=== PATIENT | female | born 1945 | race Caucasian/White ===

== ENCOUNTER 2016-10-18 06:25 | Day surgery (SDC) | payer OTHER ==
[2016-10-18 07:27] VITALS: BMI 29.2
--- NOTE | 2016-10-18 07:57 | CP.SDSHP ---
Same Day Surgery H & P - History Proposed Procedure: colonoscopy - Previous Medical/Surgical History Cardiac: Hypertension Endocrine/Metabolic: Diabetes - Allergies Allergies: Allergies No Known Allergies Allergy (Verified 11/17/13 11:52) - Date & Time Date: 10/18/16 Time: 07:57 Short Stay Discharge - Short Stay Discharge Admitting Diagnosis/Reason for Visit: ENCOUNTER FOR SCREENING FOR MALIGNANT NEOPLASM OF Disposition: HOME/ ROUTINE
[2016-10-18] MEDS ORDERED: Propofol 10 mg/ml Inj (20 ML) ONE (08:00)
[2016-10-18 09:01] VITALS: O2SAT 100
[2016-10-18 10:48] VITALS: BP 138/53; PULSE 59; RESP 14; TEMP 97.4
== END 2016-10-18 10:40 | disposition home or self-care (01) ==
LOC: C.ENDO 06:25
PROVIDERS: ATTEND Colon & Rectal Surgery
DX: D12.5 Benign neoplasm of sigmoid colon (principal); Q43.8 Other specified congenital malformations of intestine; K64.4 Residual hemorrhoidal skin tags; E11.9 Type 2 diabetes mellitus without complications; I10 Essential (primary) hypertension; K64.8 Other hemorrhoids
CPT/HCPCS: 45388; 82948; 88305; J2704

== ENCOUNTER 2017-10-16 20:57 | Inpatient (IN) | payer OTHER ==
[2017-10-16 20:57] VITALS: BMI 29.2
[2017-10-16] MEDS ORDERED: Iodixanol 320 mg/ml 150 ml Bottle IV ONE (21:31)
[2017-10-16 21:47] LABS: BASO % 0.7 % (0.0-2.0); EOS # 0.1 K/uL (0.0-0.7); EOS % 1.1 % (0.0-4.0); HEMOGLOBIN 10.8 g/dL (11.0-16.0); LYMPH # 1.7 K/uL (1.0-4.3); LYMPH % 24.1 % (20.0-40.0); MEAN CELL VOLUME 82.9 fL (81.0-99.0); MEAN CORPUSCULAR HEMOGLOBIN 27.6 pg (27.0-31.0); MEAN CORPUSCULAR HGB CONC 33.2 g/dL (33.0-37.0); MEAN PLATELET VOLUME 7.8 fL (7.2-11.7); MONO # 0.4 K/uL (0.0-0.8); MONO % 6.2 % (0.0-10.0); NEUT # 4.9 K/uL (1.8-7.0); NEUT % 67.9 % (50.0-75.0); NRBC % 0.1 % (0.0-2.0); RBC 3.91 Mil/uL (3.80-5.20); RED CELL DISTRIBUTION WIDTH 14.4 % (11.5-14.5); WHITE BLOOD COUNT 7.2 K/uL (4.8-10.8)
--- NOTE | 2017-10-16 21:48 | C.PDOC ---
History Of Present Illness Patient is a 72 y/o F presenting with L leg weakness. Patient reports that she was at home when she developed L leg weakness and then called 911. On initial RN evaluation patient was moving leg but complaining of weakness. On my evaluation, patient had limited movement of LLE and code stroke was called. Last known well time 900pm. Denies chest pain or shortness of breath. Denies back pain. Denies urinary or bowel incontinence Time Seen by Provider: 10/16/17 21:04 Chief Complaint (Nursing): Weakness/Neurological Deficit Past Medical History Vital Signs: Last Vital Signs Temp 98.7 F 10/16/17 21:08 Pulse 101 H 10/16/17 22:47 Resp 17 10/16/17 22:47 BP 144/90 10/16/17 22:47 Pulse Ox 99 10/16/17 22:59 - Medical History PMH: Anemia, Arthritis, Depression, HTN, Hypercholesterolemia Denies: Chronic Kidney Disease - [facility] ENDO RECTUM POLYPECTOMY (11/19/13) Family History: States: No Known Family Hx - Social History Hx Alcohol Use: No Hx Substance Use: No - Immunization History Hx Influenza Vaccination: Yes Hx Pneumococcal Vaccination: Yes Review Of Systems Except As Marked, All Systems Reviewed And Found Negative. Constitutional: Negative for: Fever, Chills Cardiovascular: Negative for: Chest Pain, Palpitations Respiratory: Negative for: Cough, Shortness of Breath, SOB with Excertion, Wheezing Gastrointestinal: Negative for: Nausea, Vomiting, Abdominal Pain, Diarrhea, Constipation Genitourinary: Negative for: Dysuria Musculoskeletal: Negative for: Neck Pain Neurological: Positive for: Weakness. Negative for: Numbness, Altered Mental Status, Headache Physical Exam - Physical Exam Appears: Well, Non-toxic, No Acute Distress Skin: Normal Color, Warm, Dry Head: Atraumatic, Normacephalic Eye(s): bilateral: Normal Inspection, PERRL, EOMI Neck: Supple Chest: Symmetrical Cardiovascular: Rhythm Irregular Respiratory: No Accessory Muscle Use, Wheezing (at bases) Gastrointestinal/Abdominal: Soft, No Tenderness, No Mass, No Distention Back: Normal Inspection, No CVA Tenderness Extremity: Other (LLE: normal sensation but unable to move LLE other than wiggle toes. Other extremities: normal ROM and strength) Neurological/Psych: Oriented x3, Normal Cranial Nerves, Normal Sensation ED Course And Treatment - Laboratory Results Result Diagrams: 10/16/17 21:37 10/16/17 21:37 O2 Sat by Pulse Oximetry: 99 NIHSS Stroke Scale 2 - Date/Time Evaluation Performed Date Performed: 10/16/17 Time Performed: 22:20 When Was NIHSS Performed: Baseline - How Severe is the Stroke Level of Consciousness: 0=Alert LOC to Questions: 0=Both comments correct LOC to commands: 0=Obeys both correctly Best Gaze: 0=Normal Visual: 0=No visual loss Facial: 0=Normal Motor Arm - Left: 0=No drift Motor Arm - Right: 0=No drift Motor Leg - Left: 3=No effort against gravity (falls immediately) Motor Leg - Right: 0=No drift Limb Ataxia: 0=Absent Sensory: 0=Normal Best Language: 0=No aphasia Dysarthia: 0=Normal articulation Extinction & Inattention (Neglect): 0=Normal, no object Score: 3 Severity Of Stroke: 1-4 = Minor Stroke rTPA Inclusion/Exclusion - Refusal of Treatment Patient Refused Treatment: No - Inclusion Criteria for Altepase Patient is 18 years or Older: Yes The Clinical Diagnosis of Ischemic Stroke That is Causing a Potentially Disabling Neurological Deficit: No Time of Onset is Well Established to be Less Than 270 Minute Before Treatment Would Begin: Yes Risk/Benefit Discussed With Patient/Family Member Present: No Medical Decision Making Medical Decision Making: Code stroke immediately called on my evaluation. CT head shows: 1. Motion artifact degrades image quality. 2. 6 mm area of low density in the subcortical white matter the right frontal lobe. This could represent a lacunar infarct. The image is degraded by motion artifact. Followup examination should be considered. Alternatively MR would be helpful if there strong clinical concern for evolving infarct. Aspirin given per Dr. Andujar, neurologist. IMPRESSION: 1. 40% stenosis of the right proximal internal carotid artery 2. 50% stenosis of the left proximal/mid internal carotid artery 3. Hypoplastic left vertebral artery. 4. Interstitial thickening at the lung apices bilaterally. 5. Both cervical internal carotid arteries assume an aberrant course extending into the retropharyngeal soft tissues CTA head IMPRESSION: 1. 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 2. Aplastic left posterior communicating artery. 3. Chronic sinusitis within the paranasal sinuses. Postsurgical changes in the left maxillary sinus. 4. Acute sinusitis in the right frontal sinus EKG shows rapid afib at 133bpm. Spoke to PMD Dr. Yanez who reports that patient has no history. Verapamil and lopressor given with improvement of heart rate. Spoke to . She does not recommend tpa as lacunar infarct. Recommends tele admission. Spoke to Dr. Racheal Wade who accepts admission and spoke to Dr. Villarreal who will consult for cardiology Disposition - Disposition Disposition: HOSPITALIZED Disposition Time: 22:31 Condition: FAIR Forms: [facility] ([place]ish) - Clinical Impression Clinical Impression: CVA (cerebral vascular accident), New onset a-fib
[2017-10-16 21:51] LABS: INR 0.9; PROTHROMBIN TIME 10.3 SECONDS (9.7-12.2)
[2017-10-16] MEDS: Sodium Chloride 0.9% 1,000 ML IV SCH (21:53)
--- NOTE | 2017-10-16 21:54 | CT ---
EXAM: CT Head Without Intravenous Contrast EXAM DATE/TIME: Exam ordered 10/16/2017 9:25 PM CLINICAL HISTORY: 72 years old, female; Signs and symptoms; Numbness / parasthesia; Left; Additional info: Code stroke TECHNIQUE: Axial computed tomography images of the head/brain without intravenous contrast. All CT scans at this facility use one or more dose reduction techniques, viz.: automated exposure control; ma/kV adjustment per patient size (including targeted exams where dose is matched to indication; i.e. head); or iterative reconstruction technique. COMPARISON: No relevant prior studies available. FINDINGS: Motion artifact degrades images at the skull base. Brain: A 6 mm area of low density is noted in the subcortical white matter of the right frontal lobe (series 4 image 28). There is motion artifact at this level which degrades image quality.. Ventricles: There is subcentimeter choroid plexus cysts noted bilaterally. Bones/joints: There is hyperostosis frontalis interna. No acute fracture. Soft tissues: Unremarkable. Sinuses: Unremarkable as visualized. No acute sinusitis. Mastoid air cells: Unremarkable as visualized. No mastoid effusion. IMPRESSION: 1. Motion artifact degrades image quality. 2. 6 mm area of low density in the subcortical white matter the right frontal lobe. This could represent a lacunar infarct. The image is degraded by motion artifact. Followup examination should be considered. Alternatively MR would be helpful if there strong clinical concern for evolving infarct. Images were attached to this report and are available at [email or web address]
[2017-10-16 22:02] LABS: ALB/GLOB RATIO 1.1 (1.0-2.1); ALBUMIN 4.2 g/dL (3.5-5.0); ALT/SGPT 34 U/L (9-52); AST/SGOT 45 U/L (14-36); BLOOD UREA NITROGEN 8 mg/dL (7-17); CALCIUM 8.9 mg/dl (8.6-10.4); GFR AFRICAN-AMERICAN > 60; GFR NON-AFRICAN AMERICAN > 60; HDL CHOLESTEROL 30 mg/dL (30-70)
[2017-10-16] MEDS ORDERED: Verapamil 2 ML ONE (22:07)
[2017-10-16 22:08] LABS: LDL CHOLESTEROL 52 mg/dL (0-129)
[2017-10-16] MEDS ORDERED: Metoprolol 1 mg/ml Inj IVP STA (22:37)
[2017-10-16] MEDS ORDERED: Metoprolol 1 mg/ml Inj IVP ONE (22:42)
--- NOTE | 2017-10-16 23:27 | CP.PCM.CON ---
History of Present Illness - History of Present Illness History of Present Illness: 72 year old with HTN, DM, Mixed hyperlipidemia. presented with leg weakness. rendered non suitable for thrombolytic treatment after CT evidence of lacunar infarct. now rate controlled. carotid Doppler no significat stenosis. check echo , needs anti coagulation Review of Systems - Review of Systems Systems not reviewed;Unavailable: Acuity of Condition - Constitutional Constitutional: Anorexia, Weakness - EENT Eyes: absent: Discharge, Loss of Vision Ears: absent: Ear Discharge, Dizziness Nose/Mouth/Throat: absent: Epistaxis - Cardiovascular Cardiovascular: absent: Acrocyanosis, Chest Pain, Diaphoresis, Palpitations, Syncope - Respiratory Respiratory: Cough, Dyspnea. absent: Hemoptysis - Gastrointestinal Gastrointestinal: absent: Abdominal Pain, Diarrhea, Dyspepsia, Nausea, Vomiting - Genitourinary Genitourinary: absent: Change in Urinary Stream Past Patient History - Past Medical History & Family History Past Medical History?: Yes - Past Social History Smoking Status: Never Smoked - CARDIAC Hx Hypercholesterolemia: Yes Hx Hypertension: Yes - PULMONARY Other/Comment: dyspnea on exertion - HEENT Hx HEENT Problems: Yes Hx Cataracts: Yes - RENAL Hx Chronic Kidney Disease: No - ENDOCRINE/METABOLIC Hx Endocrine Disorders: Yes Hx Diabetes Mellitus Type 1: Yes - HEMATOLOGICAL/ONCOLOGICAL Hx Anemia: Yes - INTEGUMENTARY Hx Dermatological Problems: No - MUSCULOSKELETAL/RHEUMATOLOGICAL Hx Arthritis: Yes - GASTROINTESTINAL Hx Gastrointestinal Disorders: Yes (abd pain) Hx Hemorrhoids: Yes - GENITOURINARY/GYNECOLOGICAL Hx Genitourinary Disorders: No - PSYCHIATRIC Hx Depression: Yes Hx Substance Use: No - SURGICAL HISTORY Hx Surgeries: Yes Hx Cardiac Catheterization: Yes Other/Comment: wisdom teeth exctraction 1974 - ANESTHESIA Hx Anesthesia: Yes Hx Anesthesia Reactions: No Hx Malignant Hyperthermia: No Meds Allergies/Adverse Reactions: Allergies Allergy/AdvReac Type Severity Reaction Status Date / Time No Known Allergies Allergy Verified 10/16/17 21:13 - Medications Medications: Current Medications Sodium Chloride (Sodium Chloride 0.9%) 1,000 mls @ 100 mls/hr IV .Q10H [facility] Last Admin: 10/16/17 21:53 Dose: 100 mls/hr Physical Exam - Constitutional Appears: Non-toxic - Head Exam Head Exam: ATRAUMATIC - Eye Exam Eye Exam: EOMI - ENT Exam ENT Exam: Mucous Membranes Moist - Neck Exam Neck exam: Negative for: Lymphadenopathy, Thyromegaly - Respiratory Exam Respiratory Exam: Clear to Auscultation Bilateral. absent: Rales - Cardiovascular Exam Cardiovascular Exam: Irregular Rhythm, Systolic Murmur - GI/Abdominal Exam GI & Abdominal Exam: Normal Bowel Sounds. absent: Organomegaly - Rectal Exam Rectal Exam: Deferred - Extremities Exam Extremities exam: Positive for: normal capillary refill. Negative for: calf tenderness - Neurological Exam Neurological exam: Alert, Oriented x3 - Psychiatric Exam Psychiatric exam: Normal Mood - Skin Skin Exam: Dry Results - Vital Signs Recent Vital Signs: Last Vital Signs Temp 98.7 F 10/16/17 21:08 Pulse 98 H 10/16/17 23:19 Resp 18 10/16/17 23:19 BP 140/76 10/16/17 23:19 Pulse Ox 98 10/16/17 23:19 - Labs Result Diagrams: 10/17/17 13:53 10/17/17 13:53 Labs: Laboratory Results - last 24 hr 10/16/17 10/16/17 10/16/17 21:01 21:37 21:37 WBC 7.2 RBC 3.91 Hgb 10.8 L Hct 32.4 L MCV 82.9 MCH 27.6 MCHC 33.2 RDW 14.4 Plt Count 413 H MPV 7.8 Neut % (Auto) 67.9 Lymph % (Auto) 24.1 [place] % (Auto) 6.2 Eos % (Auto) 1.1 Baso % (Auto) 0.7 Neut # (Auto) 4.9 Lymph # (Auto) 1.7 [place] # (Auto) 0.4 Eos # (Auto) 0.1 Baso # (Auto) 0.0 PT 10.3 INR 0.9 APTT 20 L Sodium Potassium Chloride Carbon Dioxide Anion Gap BUN Creatinine Est GFR ( Amer) Est GFR (Non-Af Amer) POC Glucose (mg/dL) 69 Random Glucose Hemoglobin A1c Calcium Total Bilirubin AST ALT Alkaline Phosphatase Troponin I Total Protein Albumin Globulin Albumin/Globulin Ratio Triglycerides Cholesterol LDL Cholesterol Direct HDL Cholesterol Blood Type Antibody Screen 10/16/17 10/16/17 10/16/17 21:37 21:37 21:41 WBC RBC Hgb Hct MCV MCH MCHC RDW Plt Count MPV Neut % (Auto) Lymph % (Auto) [place] % (Auto) Eos % (Auto) Baso % (Auto) Neut # (Auto) Lymph # (Auto) [place] # (Auto) Eos # (Auto) Baso # (Auto) PT INR APTT Sodium 141 Potassium 4.1 Chloride 105 Carbon Dioxide 25 Anion Gap 15 BUN 8 Creatinine 0.8 Est GFR ( Amer) > 60 Est GFR (Non-Af Amer) > 60 POC Glucose (mg/dL) Random Glucose 69 Hemoglobin A1c 7.5 H Calcium 8.9 Total Bilirubin 0.9 AST 45 H ALT 34 Alkaline Phosphatase 54 Troponin I < 0.0120 Total Protein 8.1 Albumin 4.2 Globulin 3.9 Albumin/Globulin Ratio 1.1 Triglycerides 123 Cholesterol 107 LDL Cholesterol Direct 52 HDL Cholesterol 30 Blood Type O POSITIVE Antibody Screen Negative 10/16/17 22:45 WBC RBC Hgb Hct MCV MCH MCHC RDW Plt Count MPV Neut % (Auto) Lymph % (Auto) [place] % (Auto) Eos % (Auto) Baso % (Auto) Neut # (Auto) Lymph # (Auto) [place] # (Auto) Eos # (Auto) Baso # (Auto) PT INR APTT Sodium Potassium Chloride Carbon Dioxide Anion Gap BUN Creatinine Est GFR ( Amer) Est GFR (Non-Af Amer) POC Glucose (mg/dL) 77 Random Glucose Hemoglobin A1c Calcium Total Bilirubin AST ALT Alkaline Phosphatase Troponin I Total Protein Albumin Globulin Albumin/Globulin Ratio Triglycerides Cholesterol LDL Cholesterol Direct HDL Cholesterol Blood Type Antibody Screen Assessment & Plan (1) CVA (cerebral vascular accident) Status: Acute (2) New onset a-fib Status: Acute Comment: rate control, noag
[2017-10-17 06:53] LABS: CK-MB 1.26 ng/mL (0.0-3.38)
[2017-10-17] MEDS: Sodium Chloride 0.9% 1,000 ML IV SCH ×2 (07:40→10:39)
[2017-10-17] MEDS: (Novolog) Insulin Aspart, Recombinant 100 u/ml 10 ml vial SC SCH ×4 (08:09→21:16)
--- NOTE | 2017-10-17 09:22 | RAD ---
Chest x-ray single frontal view History: Code stroke. Comparison: None available. Findings: Mild venous congestion. Right hilar prominence. Top normal heart size. Degenerative changes in the spine. Impression: Mild venous congestion. Right hilar prominence. Top normal heart size.
--- NOTE | 2017-10-17 09:45 | CT ---
PROCEDURE: CT Angiography of the neck and brain dated 10/16/2017 HISTORY: Left arm weakness COMPARISON: Correlation made with concurrent CT scan brain. TECHNIQUE: IV contrast dose: 100 cc Visipaque 320 Radiation Dose - DLP: 605.33 mGy-cm This CT exam was performed using one or more of the following dose reduction techniques: Automated exposure control, adjustment of the mA and/or kV according to patient size, and/or use of iterative reconstruction technique. . FINDINGS: Aortic arch is widely patent with some minor foci of partially calcified atherosclerotic plaque changes along the inferior and mid left posterolateral margin of the transverse portion of the aortic arch. There also calcified plaque changes seen along the origins of the great vessels. The common carotid arteries are widely patent. Partially calcified atherosclerotic plaque seen at the level of the right carotid bifurcation extending distally into the proximal margin of the right internal carotid artery. Estimated at approximately 60 % stenosis. . The minor plaque changes seen along medial aspect left carotid bifurcation however there is a prominent calcified plaque within the proximal aspect of the left internal carotid artery with estimated percent narrowing at approximately 50 % or so. Both internal internal carotid artery's exhibited very re- short retropharyngeal course left-side more medial than the right. There is a small calcified plaque at along the distal right internal carotid artery just as it enters the petrous canal with no significant stenosis. Partially calcified atherosclerotic plaque changes are also present along the cavernous carotid arteries left-side more significant than right as well as along the supraclinoid carotid segments most pronounced on the left side with estimated at approximately 60 % stenosis. Minimal asymmetry of the A1 segments left-sided which is slightly larger in caliber more dominant than the right side. The middle cerebral arteries are symmetric and patent. The distal branches of the anterior middle cerebral arteries are relatively symmetric so far as can be seen. Partially calcified atherosclerotic plaque seen along several locations right vertebral artery. The left vertebral artery is hypoplastic and may in fact terminate terminate in a left-sided PICA. Atherosclerotic plaque seen along the distal vertebral artery the just distal to the entry point into the dura. Basilar artery is patent. . The left posterior communicating artery not well delineated and presumed to be hypoplastic. No evidence of large aneurysm nor vascular malformation OTHER FINDINGS: The thyroid gland appears mildly enlarged and heterogeneous. Consider followup thyroid ultrasound postoperative changes left maxillary antrum and nasal cavity. . Mild mucosal thickening within the left maxillary antrum. There is also mucosal thickening noted within multiple ethmoid air cells extending superiorly into the frontal sinus more so on the right side IMPRESSION: No evidence of occlusion. . There are calcified atherosclerotic plaque changes seen right carotid bifurcation which result in fairly significant stenosis estimated at approximately 60 % on the right. . Narrowing of the proximal left internal carotid artery estimated at approximately 50 %. . Calcified atherosclerotic plaque or both cavernous carotid segments extending on into the supraclinoid portions with estimated on narrowing on the left side at approximately 60%. No evidence of large aneurysm nor vascular malformation See above discussion for additional details, findings and recommendations Note that preliminary report provided by overnight radiology service
[2017-10-17] MEDS ORDERED: Home Med 1 UNIT (Metformin [Glucophage] 1,000 MG) PO SCH (10:00)
[2017-10-17] MEDS ORDERED: VITAMIN A 8000 UNIT PO SCH (10:00)
[2017-10-17] MEDS ORDERED: Enoxaparin 40 mg Syringe SC SCH (10:00)
[2017-10-17] MEDS ORDERED: GLIPIZIDE 10 MG PO SCH (10:00)
[2017-10-17] MEDS: (Lantus) Insulin Glargine, Recombinant SC SCH (10:32)
[2017-10-17] MEDS: Pantoprazole 40 mg EC Tab PO SCH (10:34)
[2017-10-17] MEDS: Enoxaparin 80 mg Syringe SC SCH ×3 (10:52→21:08)
[2017-10-17 14:02] LABS: CK-MB 1.05 ng/mL (0.0-3.38)
[2017-10-17 14:04] LABS: BASO % 0.6 % (0.0-2.0); EOS # 0.1 K/uL (0.0-0.7); EOS % 1.3 % (0.0-4.0); HEMOGLOBIN 10.9 g/dL (11.0-16.0); LYMPH # 1.4 K/uL (1.0-4.3); LYMPH % 18.9 % (20.0-40.0); MEAN CORPUSCULAR HEMOGLOBIN 28.1 pg (27.0-31.0); MEAN CORPUSCULAR HGB CONC 33.4 g/dL (33.0-37.0); MEAN PLATELET VOLUME 7.8 fL (7.2-11.7); MONO # 0.5 K/uL (0.0-0.8); NEUT # 5.6 K/uL (1.8-7.0); NEUT % 73.2 % (50.0-75.0); RBC 3.87 Mil/uL (3.80-5.20); RED CELL DISTRIBUTION WIDTH 14.9 % (11.5-14.5); WHITE BLOOD COUNT 7.6 K/uL (4.8-10.8)
--- NOTE | 2017-10-17 14:20 | CP.PCM.PN ---
<Aelksandra Higgins - Last Filed: 10/17/17 14:16> Subjective - Date & Time of Evaluation Date of Evaluation: 10/17/17 Time of Evaluation: 14:18 - Subjective Subjective: [id number] progress note for Dr. Wade 72 year old female with past medical history of DM, HTN, HLD was admitted to hospital for LE weakness that began yesterday evening. patient is normally ambulatory. Patient is seen and examined today. She is moving all 4 extremities without difficulty. Patient denies having any numbness, tingling, extremity weakness, CP, SOB, abd pain, N/V/D/C, F/C. Objective - Vital Signs/Intake and Output Vital Signs (last 24 hours): Temp Pulse Resp BP Pulse Ox 98.6 F 106 H 19 137/86 97 10/17/17 12:00 10/17/17 14:04 10/17/17 14:04 10/17/17 14:04 10/17/17 14:04 Intake and Output: 10/17/17 10/17/17 06:59 18:59 Intake Total 100 1350 Output Total 100 1350 Balance 0 0 - Medications Medications: Current Medications Amitriptyline HCl (Elavil) 75 mg PO HS [facility] Amlodipine Besylate (Norvasc) 10 mg PO DAILY [facility] Last Admin: 10/17/17 10:34 Dose: 10 mg Aspirin (Ecotrin) 81 mg PO DAILY [facility] Last Admin: 10/17/17 10:34 Dose: 81 mg Carvedilol (Coreg) 12.5 mg PO DAILY [facility] Last Admin: 10/17/17 10:34 Dose: 12.5 mg Enalapril Maleate (Vasotec) 10 mg PO DAILY [facility] Last Admin: 10/17/17 10:34 Dose: 10 mg Enoxaparin Sodium (Lovenox) 80 mg SC Q12 [facility] Gabapentin (Neurontin) 300 mg PO BID [facility] Last Admin: 10/17/17 10:34 Dose: 300 mg Glipizide (Glucotrol) 10 mg PO BID [facility] Last Admin: 10/17/17 10:52 Dose: 10 mg Home Med (Vitamin A [Vitamin A]) 8,000 unit PO DAILY [facility] Sodium Chloride (Sodium Chloride 0.9%) 1,000 mls @ 100 mls/hr IV .Q10H [facility] Last Admin: 10/17/17 10:39 Dose: 100 mls/hr Insulin Aspart (Novolog) 0 unit SC ACHS [facility] PRN Reason: Protocol Last Admin: 10/17/17 13:09 Dose: Not Given Insulin Glargine (Lantus) 10 unit SC DAILY [facility] Last Admin: 10/17/17 10:32 Dose: 10 u Ketorolac Tromethamine (Toradol) 15 mg IVP Q6 PRN PRN Reason: Pain, moderate (4-7) Metformin HCl (Glucophage) 1,000 mg PO BID [facility] Last Admin: 10/17/17 10:52 Dose: 1,000 mg Pantoprazole Sodium (Protonix Ec Tab) 40 mg PO DAILY [facility] Last Admin: 10/17/17 10:34 Dose: 40 mg Rosuvastatin Calcium (Crestor) 10 mg PO HS [facility] - Labs Labs: 10/17/17 13:53 10/16/17 21:37 PT 10.3 SECONDS (9.7-12.2) 10/16/17 21:37 INR 0.9 10/16/17 21:37 APTT 20 SECONDS (21-34) L 10/16/17 21:37 - Constitutional Appears: Non-toxic, No Acute Distress - Head Exam Head Exam: ATRAUMATIC - ENT Exam ENT Exam: Mucous Membranes Moist - Respiratory Exam Respiratory Exam: Clear to Ausculation Bilateral. absent: Rales, Rhonchi, Wheezes - Cardiovascular Exam Cardiovascular Exam: Tachycardia, Irregular Rhythm, +S1, +S2. absent: Gallop, Rubs, Murmur - GI/Abdominal Exam GI & Abdominal Exam: Soft, Normal Bowel Sounds. absent: Distended, Firm, Guarding, Rigid, Tenderness, Organomegaly - Extremities Exam Extremities Exam: absent: Pedal Edema, Tenderness - Neurological Exam Neurological Exam: Alert, Awake, Oriented x3 - Psychiatric Exam Psychiatric exam: Normal Affect, Normal Mood - Skin Skin Exam: Dry, Intact, Normal Color, Warm Assessment and Plan - Assessment and Plan (Free Text) Assessment: CVA - CT of head on admission showed 6 mm low density subcortical white matter in right frontal lobe (lacunar infarct). See report for details - Code stroke was called in ED. Neurologist, Dr. Andujar was called and stated that no indication of tpa for lacunar infarct. - CTA of head showed atheromatous change of the cavernous and supraclinoid internal carotid arteries bilaterally with at least 50% stenosis proximal to the bifurcation. Aplastic left posterior communicating artery. Chronic sinusitis within the paranasal sinuses. Postsurgical changes in the left maxillary sinus. Acute sinusitis in the right frontal sinus. - Will consider getting MRI - Neuro, Dr. Sorto is consulted - Neuro check - Seizure precautions DM - Continue home medications: Metformin, glipizide, - Continue Lantus 10 units SC qd - Accuchecks ACHS - Continue Aspirin - Diabetic neuropathy: continue gabapentin and Elavil HTN -Continue home Norvasc, Coreg and Vasotec - Will continue to monitor HLD - continue statin therapy with Crestor New onset a fib - Pt was noted to be in a fib on admission - Cardiology, Dr. Villarreal is consulted - Echo is pending - Continue home medication coreg 12.5 mg po QD - Pt started on Lovenox 80 mg po q12. will consider switching to Eliquis Case discussed with attending, Dr. Racheal Wade. All orders and managements per Dr. Wade <Teresa Wade S - Last Filed: 10/20/17 20:09> Objective - Vital Signs/Intake and Output Vital Signs (last 24 hours): Temp Pulse Resp BP Pulse Ox 97.6 F 83 20 116/77 100 10/20/17 15:15 10/20/17 16:15 10/20/17 15:15 10/20/17 18:00 10/20/17 15:15 Intake and Output: 10/20/17 10/21/17 18:59 06:59 Intake Total 400 Output Total 250 Balance 150 - Medications Medications: Current Medications Albuterol/Ipratropium (Duoneb 3 Mg/0.5 Mg (3 Ml) Ud) 3 ml INH RQ6 PRN PRN Reason: Shortness of Breath Last Admin: 10/20/17 19:50 Dose: 3 ml Amitriptyline HCl (Elavil) 75 mg PO HS [facility] Last Admin: 10/19/17 22:08 Dose: 75 mg Amlodipine Besylate (Norvasc) 10 mg PO DAILY [facility] Last Admin: 10/20/17 12:31 Dose: 10 mg Aspirin (Ecotrin) 81 mg PO DAILY [facility] Last Admin: 10/20/17 09:48 Dose: 81 mg Budesonide (Pulmicort Respules) 0.5 mg INH RQ12 [facility] Last Admin: 10/20/17 19:50 Dose: 0.5 mg Carvedilol (Coreg) 25 mg PO BID [facility] Last Admin: 10/20/17 18:00 Dose: 25 mg Diltiazem HCl (Cardizem) 30 mg PO QID [facility] Last Admin: 10/20/17 17:40 Dose: 30 mg Enalapril Maleate (Vasotec) 10 mg PO DAILY [facility] Last Admin: 10/20/17 12:31 Dose: 10 mg Enoxaparin Sodium (Lovenox) 80 mg SC Q12 [facility] Last Admin: 10/20/17 09:45 Dose: 80 mg Gabapentin (Neurontin) 300 mg PO BID [facility] Last Admin: 10/20/17 17:40 Dose: 300 mg Glipizide (Glucotrol) 10 mg PO BID [facility] Last Admin: 10/20/17 17:40 Dose: 10 mg Insulin Aspart (Novolog) 0 unit SC ACHS [facility] PRN Reason: Protocol Last Admin: 10/20/17 17:40 Dose: 4 unit Insulin Glargine (Lantus) 10 unit SC DAILY [facility] Last Admin: 10/20/17 09:49 Dose: 10 u Metformin HCl (Glucophage) 1,000 mg PO BID [facility] Last Admin: 10/20/17 17:40 Dose: 1,000 mg Methylprednisolone (Solu-Medrol) 30 mg IVP Q12 [facility] Last Admin: 10/20/17 09:18 Dose: Not Given Metoprolol Tartrate (Lopressor) 5 mg IVP Q4H PRN PRN Reason: Systolic Blood Pressure Last Admin: 10/18/17 09:12 Dose: 5 mg Pantoprazole Sodium (Protonix Ec Tab) 40 mg PO DAILY [facility] Last Admin: 10/20/17 09:48 Dose: 40 mg Rosuvastatin Calcium (Crestor) 10 mg PO HS [facility] Last Admin: 10/19/17 22:08 Dose: 10 mg Temazepam (Restoril) 15 mg PO HS PRN PRN Reason: Insomnia Last Admin: 10/19/17 22:08 Dose: 15 mg Tolterodine Tartrate (Detrol) 2 mg PO BID [facility] Last Admin: 10/20/17 17:39 Dose: 2 mg - Labs Labs: 10/18/17 06:18 04/22/18 10:48 PT 10.3 SECONDS (9.7-12.2) 10/16/17 21:37 INR 0.9 10/16/17 21:37 APTT 20 SECONDS (21-34) L 10/16/17 21:37 Attending/Attestation - Attestation I have personally seen and examined this patient.: Yes I have fully participated in the care of the patient.: Yes I have reviewed all pertinent clinical information, including history, physical exam and plan: Yes Notes (Text): case seen and d.w staff and resident, concurred with finding and management..
[2017-10-17 14:28] LABS: ALB/GLOB RATIO 1.1 (1.0-2.1); ALBUMIN 3.7 g/dL (3.5-5.0); ALT/SGPT 23 U/L (9-52); AST/SGOT 25 U/L (14-36); BLOOD UREA NITROGEN 8 mg/dL (7-17); GFR AFRICAN-AMERICAN > 60; GFR NON-AFRICAN AMERICAN > 60
[2017-10-17] MEDS ORDERED: Potassium Chloride 20 mEq ER Tab PO ONE (15:30)
--- NOTE | 2017-10-17 15:34 | CP.PCM.CON ---
History of Present Illness - History of Present Illness History of Present Illness: CHART REVIEWED. PT SEEN AND EXAMINED. 72 YO FEMALE WITH A HX HTN, DM, HYPERLIPIDEMIA, OA, OBESITY, ADM 10/16/17 WITH ACUTE LE WEAKNESS. CT HEAD +LACUNAR INFARCT NOTED., WITH NEW ONSET RAPID AFIB. STARTED ON ANTICOAG. SEEN BY CARDIO AND NEURO. PT ALERT, NOTES INCREASED MOD- SEVERE COUGH X 1 WK., WORSE DAYTIME., +WHITE SPUTUM., +SINUS ROSA ELENA. +WHEEZE AND SOB WITH EXERTION., NO GERD. NO FEVER., NO HX ASTHMA. AMBULATES INDEPEND. AT HOME. NO CP. NO PREVIOUS ADM. Review of Systems - Review of Systems All systems: reviewed and no additional remarkable complaints except - Constitutional Constitutional: absent: Fever, Headache, Weight Gain, Weight Loss - EENT Eyes: absent: Change in Vision Ears: absent: Decreased Hearing Nose/Mouth/Throat: absent: Epistaxis, Sinus Pain, Hoarsness - Cardiovascular Cardiovascular: absent: Chest Pain, Leg Edema - Respiratory Respiratory: Cough, Dyspnea on Exertion, Wheezing, Excessive Mucous Production - Gastrointestinal Gastrointestinal: absent: Nausea, Vomiting - Genitourinary Genitourinary: absent: Difficulty Urinating - Musculoskeletal Musculoskeletal: Stiffness - Integumentary Integumentary: absent: Rash - Neurological Neurological: Focal Weakness. absent: Confusion - Psychiatric Psychiatric: absent: Anxiety - Endocrine Endocrine: absent: Excessive Sweating - Hematologic/Lymphatic Hematologic: absent: Easy Bruising Past Patient History - Past Medical History & Family History Past Medical History?: Yes Past Family History: Reviewed and not pertinent - Past Social History Chewing Tobacco Use: No Cigar Use: No Alcohol: None Drugs: Denies - CARDIAC Hx Cardiac Disorders: Yes Hx Hypercholesterolemia: Yes Hx Hypertension: Yes - PULMONARY Hx Respiratory Disorders: No Other/Comment: dyspnea on exertion - NEUROLOGICAL Hx Neurological Disorder: No - HEENT Hx HEENT Problems: Yes Hx Cataracts: Yes Hx Sinusitis: Yes - RENAL Hx Chronic Kidney Disease: No - ENDOCRINE/METABOLIC Hx Endocrine Disorders: Yes Hx Diabetes Mellitus Type 1: Yes - HEMATOLOGICAL/ONCOLOGICAL Hx Blood Disorders: Yes Hx Anemia: Yes - INTEGUMENTARY Hx Dermatological Problems: No - MUSCULOSKELETAL/RHEUMATOLOGICAL Hx Musculoskeletal Disorders: Yes Hx Arthritis: Yes Hx Falls: No - GASTROINTESTINAL Hx Gastrointestinal Disorders: Yes (abd pain) Hx Hemorrhoids: Yes - GENITOURINARY/GYNECOLOGICAL Hx Genitourinary Disorders: No - PSYCHIATRIC Hx Psychophysiologic Disorder: No Hx Substance Use: No - SURGICAL HISTORY Hx Surgeries: Yes Hx Cardiac Catheterization: Yes Other/Comment: wisdom teeth exctraction 1975 - ANESTHESIA Hx Anesthesia: Yes Hx Anesthesia Reactions: No Hx Malignant Hyperthermia: No Has any member of the family had a problem w/ anesthesia?: No Meds Allergies/Adverse Reactions: Allergies Allergy/AdvReac Type Severity Reaction Status Date / Time No Known Allergies Allergy Verified 10/16/17 21:13 - Medications Medications: Current Medications Amitriptyline HCl (Elavil) 75 mg PO HS [facility] Amlodipine Besylate (Norvasc) 10 mg PO DAILY [facility] Last Admin: 10/17/17 10:34 Dose: 10 mg Aspirin (Ecotrin) 81 mg PO DAILY [facility] Last Admin: 10/17/17 10:34 Dose: 81 mg Carvedilol (Coreg) 12.5 mg PO DAILY [facility] Last Admin: 10/17/17 10:34 Dose: 12.5 mg Enalapril Maleate (Vasotec) 10 mg PO DAILY [facility] Last Admin: 10/17/17 10:34 Dose: 10 mg Enoxaparin Sodium (Lovenox) 80 mg SC Q12 [facility] Gabapentin (Neurontin) 300 mg PO BID [facility] Last Admin: 10/17/17 10:34 Dose: 300 mg Glipizide (Glucotrol) 10 mg PO BID [facility] Last Admin: 10/17/17 10:52 Dose: 10 mg Home Med (Vitamin A [Vitamin A]) 8,000 unit PO DAILY [facility] Insulin Aspart (Novolog) 0 unit SC ACHS [facility] PRN Reason: Protocol Last Admin: 10/17/17 13:09 Dose: Not Given Insulin Glargine (Lantus) 10 unit SC DAILY [facility] Last Admin: 10/17/17 10:32 Dose: 10 u Ketorolac Tromethamine (Toradol) 15 mg IVP Q6 PRN PRN Reason: Pain, moderate (4-7) Metformin HCl (Glucophage) 1,000 mg PO BID [facility] Last Admin: 10/17/17 10:52 Dose: 1,000 mg Pantoprazole Sodium (Protonix Ec Tab) 40 mg PO DAILY [facility] Last Admin: 10/17/17 10:34 Dose: 40 mg Rosuvastatin Calcium (Crestor) 10 mg PO HS [facility] Temazepam (Restoril) 15 mg PO HS PRN PRN Reason: Insomnia Physical Exam - Constitutional Appears: Non-toxic, No Acute Distress - Head Exam Head Exam: ATRAUMATIC, NORMOCEPHALIC - Eye Exam Eye Exam: EOMI, Normal appearance - ENT Exam ENT Exam: Mucous Membranes Moist - Neck Exam Neck exam: Negative for: Tenderness - Respiratory Exam Respiratory Exam: Decreased Breath Sounds, Wheezes. absent: Accessory Muscle Use - Cardiovascular Exam Cardiovascular Exam: Irregular Rhythm - GI/Abdominal Exam GI & Abdominal Exam: Soft. absent: Tenderness Additional comments: OBESE - Rectal Exam Rectal Exam: Deferred - Extremities Exam Extremities exam: Negative for: calf tenderness, pedal edema - Back Exam Back exam: absent: CVA tenderness (L), CVA tenderness (R) - Neurological Exam Neurological exam: Alert, CN II-XII Intact, Oriented x3 Additional comments: MOVES ALL EXT. - Psychiatric Exam Psychiatric exam: Normal Affect, Normal Mood Results - Vital Signs Recent Vital Signs: Last Vital Signs Temp 98.6 F 10/17/17 12:00 Pulse 106 H 10/17/17 14:04 Resp 19 10/17/17 14:04 BP 137/86 10/17/17 14:04 Pulse Ox 97 10/17/17 14:04 - Labs Result Diagrams: 10/17/17 13:53 10/17/17 13:53 Labs: Laboratory Results - last 24 hr 10/16/17 10/16/17 10/16/17 21:01 21:37 21:37 WBC 7.2 RBC 3.91 Hgb 10.8 L Hct 32.4 L MCV 82.9 MCH 27.6 MCHC 33.2 RDW 14.4 Plt Count 413 H MPV 7.8 Neut % (Auto) 67.9 Lymph % (Auto) 24.1 Bremer % (Auto) 6.2 Eos % (Auto) 1.1 Baso % (Auto) 0.7 Neut # (Auto) 4.9 Lymph # (Auto) 1.7 Bremer # (Auto) 0.4 Eos # (Auto) 0.1 Baso # (Auto) 0.0 PT 10.3 INR 0.9 APTT 20 L Sodium Potassium Chloride Carbon Dioxide Anion Gap BUN Creatinine Est GFR ( Amer) Est GFR (Non-Af Amer) POC Glucose (mg/dL) 69 Random Glucose Hemoglobin A1c Calcium Total Bilirubin AST ALT Alkaline Phosphatase Total Creatine Kinase CK-MB (Mass) Troponin I Total Protein Albumin Globulin Albumin/Globulin Ratio Triglycerides Cholesterol LDL Cholesterol Direct HDL Cholesterol Blood Type Antibody Screen 10/16/17 10/16/17 10/16/17 21:37 21:37 21:41 WBC RBC Hgb Hct MCV MCH MCHC RDW Plt Count MPV Neut % (Auto) Lymph % (Auto) Bremer % (Auto) Eos % (Auto) Baso % (Auto) Neut # (Auto) Lymph # (Auto) Bremer # (Auto) Eos # (Auto) Baso # (Auto) PT INR APTT Sodium 141 Potassium 4.1 Chloride 105 Carbon Dioxide 25 Anion Gap 15 BUN 8 Creatinine 0.8 Est GFR ( Amer) > 60 Est GFR (Non-Af Amer) > 60 POC Glucose (mg/dL) Random Glucose 69 Hemoglobin A1c 7.5 H Calcium 8.9 Total Bilirubin 0.9 AST 45 H ALT 34 Alkaline Phosphatase 54 Total Creatine Kinase CK-MB (Mass) Troponin I < 0.0120 Total Protein 8.1 Albumin 4.2 Globulin 3.9 Albumin/Globulin Ratio 1.1 Triglycerides 123 Cholesterol 107 LDL Cholesterol Direct 52 HDL Cholesterol 30 Blood Type O POSITIVE Antibody Screen Negative 10/16/17 10/17/17 10/17/17 22:45 05:30 07:36 WBC RBC Hgb Hct MCV MCH MCHC RDW Plt Count MPV Neut % (Auto) Lymph % (Auto) Bremer % (Auto) Eos % (Auto) Baso % (Auto) Neut # (Auto) Lymph # (Auto) Bremer # (Auto) Eos # (Auto) Baso # (Auto) PT INR APTT Sodium Potassium Chloride Carbon Dioxide Anion Gap BUN Creatinine Est GFR ( Amer) Est GFR (Non-Af Amer) POC Glucose (mg/dL) 77 137 H Random Glucose Hemoglobin A1c Calcium Total Bilirubin AST ALT Alkaline Phosphatase Total Creatine Kinase 224 H CK-MB (Mass) 1.26 Troponin I < 0.0120 Total Protein Albumin Globulin Albumin/Globulin Ratio Triglycerides Cholesterol LDL Cholesterol Direct HDL Cholesterol Blood Type Antibody Screen 10/17/17 10/17/17 10/17/17 11:11 13:26 13:53 WBC 7.6 RBC 3.87 Hgb 10.9 L Hct 32.5 L MCV 84.0 MCH 28.1 MCHC 33.4 RDW 14.9 H Plt Count 417 H MPV 7.8 Neut % (Auto) 73.2 Lymph % (Auto) 18.9 L Bremer % (Auto) 6.0 Eos % (Auto) 1.3 Baso % (Auto) 0.6 Neut # (Auto) 5.6 Lymph # (Auto) 1.4 Bremer # (Auto) 0.5 Eos # (Auto) 0.1 Baso # (Auto) 0.0 PT INR APTT Sodium Potassium Chloride Carbon Dioxide Anion Gap BUN Creatinine Est GFR ( Amer) Est GFR (Non-Af Amer) POC Glucose (mg/dL) 196 H Random Glucose Hemoglobin A1c Calcium Total Bilirubin AST ALT Alkaline Phosphatase Total Creatine Kinase 179 H CK-MB (Mass) 1.05 Troponin I < 0.0120 Total Protein Albumin Globulin Albumin/Globulin Ratio Triglycerides Cholesterol LDL Cholesterol Direct HDL Cholesterol Blood Type Antibody Screen 10/17/17 13:53 WBC RBC Hgb Hct MCV MCH MCHC RDW Plt Count MPV Neut % (Auto) Lymph % (Auto) Bremer % (Auto) Eos % (Auto) Baso % (Auto) Neut # (Auto) Lymph # (Auto) Bremer # (Auto) Eos # (Auto) Baso # (Auto) PT INR APTT Sodium 138 Potassium 3.3 L Chloride 105 Carbon Dioxide 22 Anion Gap 16 BUN 8 Creatinine 0.7 Est GFR ( Amer) > 60 Est GFR (Non-Af Amer) > 60 POC Glucose (mg/dL) Random Glucose 244 H Hemoglobin A1c Calcium 9.0 Total Bilirubin 0.6 AST 25 ALT 23 Alkaline Phosphatase 70 Total Creatine Kinase CK-MB (Mass) Troponin I Total Protein 7.1 Albumin 3.7 Globulin 3.4 Albumin/Globulin Ratio 1.1 Triglycerides Cholesterol LDL Cholesterol Direct HDL Cholesterol Blood Type Antibody Screen Assessment & Plan (1) Hypertension Status: Acute (2) Diabetes Status: Acute (3) Osteoarthritis Status: Acute (4) Obesity Status: Acute (5) Cough Status: Acute (6) CVA (cerebral vascular accident) Status: Acute (7) New onset a-fib Status: Acute - Assessment and Plan (Free Text) Assessment: 72 YO FEMALE WITH A HX MULT MED PROBS ADM WITH ACUTE CVA AND NEW ONSET AFIB. ALSO +ACUTE COUGH WITH BRONCHOSPASM NOW, +CHF ON CXR., POSS ASTHMATIC BRONCHITIS., ?SINUSITIS., CXR REVIEWED., CONT DIURESIS TOLERATED., ON LOVENOX. F/U ECHO. ADD NEB BD WITH XOPENEX. MONITOR O2 SAT. SHORT COURSE STEROIDS. PFT'S WHEN STABLE. HIGH RISK KI., CHECK PSG OUTPT. PROG GUARDED., DISCUSSED WITH STAFF AT LENGTH.
--- NOTE | 2017-10-17 15:46 | CP.PCM.HP ---
History of Present Illness - History of Present Illness History of Present Illness: 72 year old female with past medical history of DM, HTN, HLD was admitted to hospital for LE weakness that began yesterday evening. patient is normally ambulatory. Patient is seen and examined today. She is moving all 4 extremities without difficulty. Patient denies having any numbness, tingling, extremity weakness, CP, SOB, abd pain, N/V/D/C, F/C. Present on Admission - Present on Admission Any Indicators Present on Admission: No Past Patient History - Past Medical History & Family History Past Medical History?: Yes Past Family History: Reviewed and not pertinent - Past Social History Chewing Tobacco Use: No Cigar Use: No Alcohol: None Drugs: Denies - CARDIAC Hx Cardiac Disorders: Yes Hx Hypercholesterolemia: Yes Hx Hypertension: Yes - PULMONARY Hx Respiratory Disorders: No Other/Comment: dyspnea on exertion - NEUROLOGICAL Hx Neurological Disorder: No - HEENT Hx HEENT Problems: Yes Hx Cataracts: Yes Hx Sinusitis: Yes - RENAL Hx Chronic Kidney Disease: No - ENDOCRINE/METABOLIC Hx Endocrine Disorders: Yes Hx Diabetes Mellitus Type 1: Yes - HEMATOLOGICAL/ONCOLOGICAL Hx Blood Disorders: Yes Hx Anemia: Yes - INTEGUMENTARY Hx Dermatological Problems: No - MUSCULOSKELETAL/RHEUMATOLOGICAL Hx Musculoskeletal Disorders: Yes Hx Arthritis: Yes Hx Falls: No - GASTROINTESTINAL Hx Gastrointestinal Disorders: Yes (abd pain) Hx Hemorrhoids: Yes - GENITOURINARY/GYNECOLOGICAL Hx Genitourinary Disorders: No - PSYCHIATRIC Hx Psychophysiologic Disorder: No Hx Substance Use: No - SURGICAL HISTORY Hx Surgeries: Yes Hx Cardiac Catheterization: Yes Other/Comment: wisdom teeth exctraction 1974 - ANESTHESIA Hx Anesthesia: Yes Hx Anesthesia Reactions: No Hx Malignant Hyperthermia: No Has any member of the family had a problem w/ anesthesia?: No Meds Allergies/Adverse Reactions: Allergies Allergy/AdvReac Type Severity Reaction Status Date / Time No Known Allergies Allergy Verified 10/16/17 21:13 Physical Exam - Constitutional Appears: Well - Head Exam Head Exam: ATRAUMATIC, NORMAL INSPECTION, NORMOCEPHALIC - Eye Exam Eye Exam: EOMI, Normal appearance, PERRL Pupil Exam: NORMAL ACCOMODATION, PERRL - ENT Exam ENT Exam: Mucous Membranes Moist, Normal Exam - Neck Exam Neck exam: Positive for: Normal Inspection - Respiratory Exam Respiratory Exam: Decreased Breath Sounds - Cardiovascular Exam Cardiovascular Exam: REGULAR RHYTHM, +S1, +S2 - GI/Abdominal Exam GI & Abdominal Exam: Diminished Bowel Sounds, Soft - Rectal Exam Rectal Exam: Deferred Results - Vital Signs Recent Vital Signs: Last Vital Signs Temp 98.6 F 10/17/17 12:00 Pulse 106 H 10/17/17 14:04 Resp 19 10/17/17 14:04 BP 137/86 10/17/17 14:04 Pulse Ox 97 10/17/17 14:04 - Labs Result Diagrams: 10/18/17 06:18 10/18/17 06:18 Labs: Laboratory Results - last 24 hr 10/16/17 10/16/17 10/16/17 21:01 21:37 21:37 WBC 7.2 RBC 3.91 Hgb 10.8 L Hct 32.4 L MCV 82.9 MCH 27.6 MCHC 33.2 RDW 14.4 Plt Count 413 H MPV 7.8 Neut % (Auto) 67.9 Lymph % (Auto) 24.1 [place] % (Auto) 6.2 Eos % (Auto) 1.1 Baso % (Auto) 0.7 Neut # (Auto) 4.9 Lymph # (Auto) 1.7 [place] # (Auto) 0.4 Eos # (Auto) 0.1 Baso # (Auto) 0.0 PT 10.3 INR 0.9 APTT 20 L Sodium Potassium Chloride Carbon Dioxide Anion Gap BUN Creatinine Est GFR ( Amer) Est GFR (Non-Af Amer) POC Glucose (mg/dL) 69 Random Glucose Hemoglobin A1c Calcium Total Bilirubin AST ALT Alkaline Phosphatase Total Creatine Kinase CK-MB (Mass) Troponin I Total Protein Albumin Globulin Albumin/Globulin Ratio Triglycerides Cholesterol LDL Cholesterol Direct HDL Cholesterol Blood Type Antibody Screen 10/16/17 10/16/17 10/16/17 21:37 21:37 21:41 WBC RBC Hgb Hct MCV MCH MCHC RDW Plt Count MPV Neut % (Auto) Lymph % (Auto) [place] % (Auto) Eos % (Auto) Baso % (Auto) Neut # (Auto) Lymph # (Auto) [place] # (Auto) Eos # (Auto) Baso # (Auto) PT INR APTT Sodium 141 Potassium 4.1 Chloride 105 Carbon Dioxide 25 Anion Gap 15 BUN 8 Creatinine 0.8 Est GFR ( Amer) > 60 Est GFR (Non-Af Amer) > 60 POC Glucose (mg/dL) Random Glucose 69 Hemoglobin A1c 7.5 H Calcium 8.9 Total Bilirubin 0.9 AST 45 H ALT 34 Alkaline Phosphatase 54 Total Creatine Kinase CK-MB (Mass) Troponin I < 0.0120 Total Protein 8.1 Albumin 4.2 Globulin 3.9 Albumin/Globulin Ratio 1.1 Triglycerides 123 Cholesterol 107 LDL Cholesterol Direct 52 HDL Cholesterol 30 Blood Type O POSITIVE Antibody Screen Negative 10/16/17 10/17/17 10/17/17 22:45 05:30 07:36 WBC RBC Hgb Hct MCV MCH MCHC RDW Plt Count MPV Neut % (Auto) Lymph % (Auto) [place] % (Auto) Eos % (Auto) Baso % (Auto) Neut # (Auto) Lymph # (Auto) [place] # (Auto) Eos # (Auto) Baso # (Auto) PT INR APTT Sodium Potassium Chloride Carbon Dioxide Anion Gap BUN Creatinine Est GFR ( Amer) Est GFR (Non-Af Amer) POC Glucose (mg/dL) 77 137 H Random Glucose Hemoglobin A1c Calcium Total Bilirubin AST ALT Alkaline Phosphatase Total Creatine Kinase 224 H CK-MB (Mass) 1.26 Troponin I < 0.0120 Total Protein Albumin Globulin Albumin/Globulin Ratio Triglycerides Cholesterol LDL Cholesterol Direct HDL Cholesterol Blood Type Antibody Screen 10/17/17 10/17/17 10/17/17 11:11 13:26 13:53 WBC 7.6 RBC 3.87 Hgb 10.9 L Hct 32.5 L MCV 84.0 MCH 28.1 MCHC 33.4 RDW 14.9 H Plt Count 417 H MPV 7.8 Neut % (Auto) 73.2 Lymph % (Auto) 18.9 L [place] % (Auto) 6.0 Eos % (Auto) 1.3 Baso % (Auto) 0.6 Neut # (Auto) 5.6 Lymph # (Auto) 1.4 [place] # (Auto) 0.5 Eos # (Auto) 0.1 Baso # (Auto) 0.0 PT INR APTT Sodium Potassium Chloride Carbon Dioxide Anion Gap BUN Creatinine Est GFR ( Amer) Est GFR (Non-Af Amer) POC Glucose (mg/dL) 196 H Random Glucose Hemoglobin A1c Calcium Total Bilirubin AST ALT Alkaline Phosphatase Total Creatine Kinase 179 H CK-MB (Mass) 1.05 Troponin I < 0.0120 Total Protein Albumin Globulin Albumin/Globulin Ratio Triglycerides Cholesterol LDL Cholesterol Direct HDL Cholesterol Blood Type Antibody Screen 10/17/17 13:53 WBC RBC Hgb Hct MCV MCH MCHC RDW Plt Count MPV Neut % (Auto) Lymph % (Auto) [place] % (Auto) Eos % (Auto) Baso % (Auto) Neut # (Auto) Lymph # (Auto) [place] # (Auto) Eos # (Auto) Baso # (Auto) PT INR APTT Sodium 138 Potassium 3.3 L Chloride 105 Carbon Dioxide 22 Anion Gap 16 BUN 8 Creatinine 0.7 Est GFR ( Amer) > 60 Est GFR (Non-Af Amer) > 60 POC Glucose (mg/dL) Random Glucose 244 H Hemoglobin A1c Calcium 9.0 Total Bilirubin 0.6 AST 25 ALT 23 Alkaline Phosphatase 70 Total Creatine Kinase CK-MB (Mass) Troponin I Total Protein 7.1 Albumin 3.7 Globulin 3.4 Albumin/Globulin Ratio 1.1 Triglycerides Cholesterol LDL Cholesterol Direct HDL Cholesterol Blood Type Antibody Screen Assessment & Plan - Assessment and Plan (Free Text) Plan: CVA - CT of head on admission showed 6 mm low density subcortical white matter in right frontal lobe (lacunar infarct). See report for details - Code stroke was called in ED. Neurologist, Dr. Andujar was called and stated that no indication of tpa for lacunar infarct. - CTA of head showed atheromatous change of the cavernous and supraclinoid internal carotid arteries bilaterally with at least 50% stenosis proximal to the bifurcation. Aplastic left posterior communicating artery. Chronic sinusitis within the paranasal sinuses. Postsurgical changes in the left maxillary sinus. Acute sinusitis in the right frontal sinus. - Will consider getting MRI - Neuro, Dr. Sorto is consulted - Neuro check - Seizure precautions DM - Continue home medications: Metformin, glipizide, - Continue Lantus 10 units SC qd - Accuchecks ACHS - Continue Aspirin - Diabetic neuropathy: continue gabapentin and Elavil HTN -Continue home Norvasc, Coreg and Vasotec - Will continue to monitor HLD - continue statin therapy with Crestor New onset a fib - Pt was noted to be in a fib on admission - Cardiology, Dr. Villarreal is consulted - Echo is pending - Continue home medication coreg 12.5 mg po QD - Pt started on Lovenox 80 mg po q12. will consider switching to Eliquis
[2017-10-17] MEDS: MethylPREDNISolone 40 mg Vial IVP SCH (16:33)
--- NOTE | 2017-10-17 17:24 | CP.PCM.PN ---
Subjective - Date & Time of Evaluation Date of Evaluation: 10/17/17 Time of Evaluation: 12:00 - Subjective Subjective: echo LVH NL contractility, no no effusion, still with high rate. Objective - Vital Signs/Intake and Output Vital Signs (last 24 hours): Temp Pulse Resp BP Pulse Ox 98.6 F 106 H 19 137/86 97 10/17/17 12:00 10/17/17 14:04 10/17/17 14:04 10/17/17 14:04 10/17/17 14:04 Intake and Output: 10/17/17 10/17/17 06:59 18:59 Intake Total 100 1350 Output Total 100 1350 Balance 0 0 - Medications Medications: Current Medications Albuterol/Ipratropium (Duoneb 3 Mg/0.5 Mg (3 Ml) Ud) 3 ml INH RQ6 [facility] Amitriptyline HCl (Elavil) 75 mg PO HS [facility] Amlodipine Besylate (Norvasc) 10 mg PO DAILY [facility] Last Admin: 10/17/17 10:34 Dose: 10 mg Aspirin (Ecotrin) 81 mg PO DAILY [facility] Last Admin: 10/17/17 10:34 Dose: 81 mg Budesonide (Pulmicort Respules) 0.5 mg INH RQ12 [facility] Carvedilol (Coreg) 12.5 mg PO DAILY [facility] Last Admin: 10/17/17 10:34 Dose: 12.5 mg Enalapril Maleate (Vasotec) 10 mg PO DAILY [facility] Last Admin: 10/17/17 10:34 Dose: 10 mg Enoxaparin Sodium (Lovenox) 80 mg SC Q12 [facility] Gabapentin (Neurontin) 300 mg PO BID [facility] Last Admin: 10/17/17 10:34 Dose: 300 mg Glipizide (Glucotrol) 10 mg PO BID [facility] Last Admin: 10/17/17 10:52 Dose: 10 mg Home Med (Vitamin A [Vitamin A]) 8,000 unit PO DAILY [facility] Insulin Aspart (Novolog) 0 unit SC ACHS [facility] PRN Reason: Protocol Last Admin: 10/17/17 16:33 Dose: 2 unit Insulin Glargine (Lantus) 10 unit SC DAILY [facility] Last Admin: 10/17/17 10:32 Dose: 10 u Ketorolac Tromethamine (Toradol) 15 mg IVP Q6 PRN PRN Reason: Pain, moderate (4-7) Metformin HCl (Glucophage) 1,000 mg PO BID [facility] Last Admin: 10/17/17 10:52 Dose: 1,000 mg Methylprednisolone (Solu-Medrol) 40 mg IVP Q8H [facility] Last Admin: 10/17/17 16:33 Dose: 40 mg Pantoprazole Sodium (Protonix Ec Tab) 40 mg PO DAILY [facility] Last Admin: 10/17/17 10:34 Dose: 40 mg Rosuvastatin Calcium (Crestor) 10 mg PO HS [facility] Temazepam (Restoril) 15 mg PO HS PRN PRN Reason: Insomnia - Labs Labs: 10/17/17 13:53 10/17/17 13:53 PT 10.3 SECONDS (9.7-12.2) 10/16/17 21:37 INR 0.9 10/16/17 21:37 APTT 20 SECONDS (21-34) L 10/16/17 21:37 - Constitutional Appears: Non-toxic - Head Exam Head Exam: ATRAUMATIC - Eye Exam Eye Exam: EOMI - ENT Exam ENT Exam: Mucous Membranes Moist - Neck Exam Neck Exam: absent: Lymphadenopathy, Thyromegaly - Respiratory Exam Respiratory Exam: Clear to Ausculation Bilateral. absent: Rales - Cardiovascular Exam Cardiovascular Exam: Irregular Rhythm, Murmur - GI/Abdominal Exam GI & Abdominal Exam: Normal Bowel Sounds. absent: Organomegaly - Rectal Exam Rectal Exam: Deferred - Extremities Exam Extremities Exam: Normal Capillary Refill. absent: Calf Tenderness - Neurological Exam Neurological Exam: Alert, Oriented x3 - Psychiatric Exam Psychiatric exam: Normal Mood - Skin Skin Exam: Dry Assessment and Plan (1) CVA (cerebral vascular accident) Status: Acute (2) New onset a-fib Status: Acute
[2017-10-17] MEDS ORDERED: Enoxaparin 80 mg Syringe SC SCH (18:00)
--- NOTE | 2017-10-17 18:13 | CP.PCM.CON ---
History of Present Illness - History of Present Illness History of Present Illness: 72 yr old woman, right handed, with pmh of htn, dm, hyperlipidemia, obesity, who presented with acute lower extremity weakness, which she does not recall. She was found to have a small lacunar infarct on ct head, and rapid onset afib, started on anticoagulant. In addition, she has a moderately severe cough for ne week, that is associated with white sputum and sob. It is noted on examination that the patient continues to have persistent hypertension, despite antihypertensive treatment. On exam she no longer has weakness or numbness. PMH/PSH: as above FH/SH: Originally from [facility], no tobacco, no etoh. Has several children. All: nkda. On exam: AAOX3. PERRL. EOMI. CN 2-12 normal. No sensory or motor deficits appreciated. Toes downgoing. No clonus. Gait not tested. Past Patient History - Past Medical History & Family History Past Medical History?: Yes - Past Social History Smoking Status: Never Smoked - CARDIAC Hx Hypercholesterolemia: Yes Hx Hypertension: Yes - PULMONARY Other/Comment: dyspnea on exertion - HEENT Hx HEENT Problems: Yes Hx Cataracts: Yes - RENAL Hx Chronic Kidney Disease: No - ENDOCRINE/METABOLIC Hx Endocrine Disorders: Yes Hx Diabetes Mellitus Type 1: Yes - HEMATOLOGICAL/ONCOLOGICAL Hx Anemia: Yes - INTEGUMENTARY Hx Dermatological Problems: No - MUSCULOSKELETAL/RHEUMATOLOGICAL Hx Arthritis: Yes - GASTROINTESTINAL Hx Gastrointestinal Disorders: Yes (abd pain) Hx Hemorrhoids: Yes - GENITOURINARY/GYNECOLOGICAL Hx Genitourinary Disorders: No - PSYCHIATRIC Hx Depression: Yes Hx Substance Use: No - SURGICAL HISTORY Hx Surgeries: Yes Hx Cardiac Catheterization: Yes Other/Comment: wisdom teeth exctraction 1974 - ANESTHESIA Hx Anesthesia: Yes Hx Anesthesia Reactions: No Hx Malignant Hyperthermia: No Meds Allergies/Adverse Reactions: Allergies Allergy/AdvReac Type Severity Reaction Status Date / Time No Known Allergies Allergy Verified 10/16/17 21:13 - Medications Medications: Current Medications Albuterol/Ipratropium (Duoneb 3 Mg/0.5 Mg (3 Ml) Ud) 3 ml INH RQ6 [facility] Amitriptyline HCl (Elavil) 75 mg PO HS [facility] Amlodipine Besylate (Norvasc) 10 mg PO DAILY [facility] Last Admin: 10/17/17 10:34 Dose: 10 mg Aspirin (Ecotrin) 81 mg PO DAILY [facility] Last Admin: 10/17/17 10:34 Dose: 81 mg Budesonide (Pulmicort Respules) 0.5 mg INH RQ12 [facility] Carvedilol (Coreg) 25 mg PO BID [facility] Last Admin: 10/17/17 17:49 Dose: 25 mg Enalapril Maleate (Vasotec) 10 mg PO DAILY [facility] Last Admin: 10/17/17 10:34 Dose: 10 mg Enoxaparin Sodium (Lovenox) 80 mg SC Q12 [facility] Gabapentin (Neurontin) 300 mg PO BID [facility] Last Admin: 10/17/17 17:45 Dose: 300 mg Glipizide (Glucotrol) 10 mg PO BID [facility] Last Admin: 10/17/17 17:45 Dose: 10 mg Home Med (Vitamin A [Vitamin A]) 8,000 unit PO DAILY [facility] Insulin Aspart (Novolog) 0 unit SC ACHS [facility] PRN Reason: Protocol Last Admin: 10/17/17 16:33 Dose: 2 unit Insulin Glargine (Lantus) 10 unit SC DAILY [facility] Last Admin: 10/17/17 10:32 Dose: 10 u Ketorolac Tromethamine (Toradol) 15 mg IVP Q6 PRN PRN Reason: Pain, moderate (4-7) Metformin HCl (Glucophage) 1,000 mg PO BID [facility] Last Admin: 10/17/17 17:45 Dose: 1,000 mg Methylprednisolone (Solu-Medrol) 40 mg IVP Q8H [facility] Last Admin: 10/17/17 16:33 Dose: 40 mg Pantoprazole Sodium (Protonix Ec Tab) 40 mg PO DAILY [facility] Last Admin: 10/17/17 10:34 Dose: 40 mg Rosuvastatin Calcium (Crestor) 10 mg PO HS [facility] Temazepam (Restoril) 15 mg PO HS PRN PRN Reason: Insomnia Results - Vital Signs Recent Vital Signs: Last Vital Signs Temp 98.5 F 10/17/17 16:00 Pulse 115 H 10/17/17 17:04 Resp 20 10/17/17 17:04 BP 145/80 10/17/17 17:49 Pulse Ox 98 10/17/17 16:00 - Labs Result Diagrams: 10/17/17 13:53 10/17/17 13:53 Labs: Laboratory Results - last 24 hr 10/16/17 10/16/17 10/16/17 21:01 21:37 21:37 WBC 7.2 RBC 3.91 Hgb 10.8 L Hct 32.4 L MCV 82.9 MCH 27.6 MCHC 33.2 RDW 14.4 Plt Count 413 H MPV 7.8 Neut % (Auto) 67.9 Lymph % (Auto) 24.1 [place] % (Auto) 6.2 Eos % (Auto) 1.1 Baso % (Auto) 0.7 Neut # (Auto) 4.9 Lymph # (Auto) 1.7 [place] # (Auto) 0.4 Eos # (Auto) 0.1 Baso # (Auto) 0.0 PT 10.3 INR 0.9 APTT 20 L Sodium Potassium Chloride Carbon Dioxide Anion Gap BUN Creatinine Est GFR ( Amer) Est GFR (Non-Af Amer) POC Glucose (mg/dL) 69 Random Glucose Hemoglobin A1c Calcium Total Bilirubin AST ALT Alkaline Phosphatase Total Creatine Kinase CK-MB (Mass) Troponin I Total Protein Albumin Globulin Albumin/Globulin Ratio Triglycerides Cholesterol LDL Cholesterol Direct HDL Cholesterol Blood Type Antibody Screen 10/16/17 10/16/17 10/16/17 21:37 21:37 21:41 WBC RBC Hgb Hct MCV MCH MCHC RDW Plt Count MPV Neut % (Auto) Lymph % (Auto) [place] % (Auto) Eos % (Auto) Baso % (Auto) Neut # (Auto) Lymph # (Auto) [place] # (Auto) Eos # (Auto) Baso # (Auto) PT INR APTT Sodium 141 Potassium 4.1 Chloride 105 Carbon Dioxide 25 Anion Gap 15 BUN 8 Creatinine 0.8 Est GFR ( Amer) > 60 Est GFR (Non-Af Amer) > 60 POC Glucose (mg/dL) Random Glucose 69 Hemoglobin A1c 7.5 H Calcium 8.9 Total Bilirubin 0.9 AST 45 H ALT 34 Alkaline Phosphatase 54 Total Creatine Kinase CK-MB (Mass) Troponin I < 0.0120 Total Protein 8.1 Albumin 4.2 Globulin 3.9 Albumin/Globulin Ratio 1.1 Triglycerides 123 Cholesterol 107 LDL Cholesterol Direct 52 HDL Cholesterol 30 Blood Type O POSITIVE Antibody Screen Negative 10/16/17 10/17/17 10/17/17 22:45 05:30 07:36 WBC RBC Hgb Hct MCV MCH MCHC RDW Plt Count MPV Neut % (Auto) Lymph % (Auto) [place] % (Auto) Eos % (Auto) Baso % (Auto) Neut # (Auto) Lymph # (Auto) [place] # (Auto) Eos # (Auto) Baso # (Auto) PT INR APTT Sodium Potassium Chloride Carbon Dioxide Anion Gap BUN Creatinine Est GFR ( Amer) Est GFR (Non-Af Amer) POC Glucose (mg/dL) 77 137 H Random Glucose Hemoglobin A1c Calcium Total Bilirubin AST ALT Alkaline Phosphatase Total Creatine Kinase 224 H CK-MB (Mass) 1.26 Troponin I < 0.0120 Total Protein Albumin Globulin Albumin/Globulin Ratio Triglycerides Cholesterol LDL Cholesterol Direct HDL Cholesterol Blood Type Antibody Screen 10/17/17 10/17/17 10/17/17 11:11 13:26 13:53 WBC 7.6 RBC 3.87 Hgb 10.9 L Hct 32.5 L MCV 84.0 MCH 28.1 MCHC 33.4 RDW 14.9 H Plt Count 417 H MPV 7.8 Neut % (Auto) 73.2 Lymph % (Auto) 18.9 L [place] % (Auto) 6.0 Eos % (Auto) 1.3 Baso % (Auto) 0.6 Neut # (Auto) 5.6 Lymph # (Auto) 1.4 [place] # (Auto) 0.5 Eos # (Auto) 0.1 Baso # (Auto) 0.0 PT INR APTT Sodium Potassium Chloride Carbon Dioxide Anion Gap BUN Creatinine Est GFR ( Amer) Est GFR (Non-Af Amer) POC Glucose (mg/dL) 196 H Random Glucose Hemoglobin A1c Calcium Total Bilirubin AST ALT Alkaline Phosphatase Total Creatine Kinase 179 H CK-MB (Mass) 1.05 Troponin I < 0.0120 Total Protein Albumin Globulin Albumin/Globulin Ratio Triglycerides Cholesterol LDL Cholesterol Direct HDL Cholesterol Blood Type Antibody Screen 10/17/17 10/17/17 13:53 16:14 WBC RBC Hgb Hct MCV MCH MCHC RDW Plt Count MPV Neut % (Auto) Lymph % (Auto) [place] % (Auto) Eos % (Auto) Baso % (Auto) Neut # (Auto) Lymph # (Auto) [place] # (Auto) Eos # (Auto) Baso # (Auto) PT INR APTT Sodium 138 Potassium 3.3 L Chloride 105 Carbon Dioxide 22 Anion Gap 16 BUN 8 Creatinine 0.7 Est GFR ( Amer) > 60 Est GFR (Non-Af Amer) > 60 POC Glucose (mg/dL) 208 H Random Glucose 244 H Hemoglobin A1c Calcium 9.0 Total Bilirubin 0.6 AST 25 ALT 23 Alkaline Phosphatase 70 Total Creatine Kinase CK-MB (Mass) Troponin I Total Protein 7.1 Albumin 3.7 Globulin 3.4 Albumin/Globulin Ratio 1.1 Triglycerides Cholesterol LDL Cholesterol Direct HDL Cholesterol Blood Type Antibody Screen
[2017-10-17] MEDS ORDERED: Albuterol-Ipratrop 3 mg / 0.5 (3 ml) UD INH SCH (20:00)
[2017-10-17] MEDS ORDERED: Potassium Chloride 10 mEq ER Tab PO STA (20:01)
[2017-10-17] MEDS: Metoprolol 1 mg/ml Inj IVP PRN (23:23)
--- NOTE | 2017-10-17 23:33 | CT ---
EXAM: CT Head Without Intravenous Contrast EXAM DATE/TIME: 10/17/2017 8:00 PM CLINICAL HISTORY: 72 years old, female; Signs and symptoms; Other: Post code stroke TECHNIQUE: Axial computed tomography images of the head/brain without intravenous contrast. All CT scans at this facility use one or more dose reduction techniques, viz.: automated exposure control; ma/kV adjustment per patient size (including targeted exams where dose is matched to indication; i.e. head); or iterative reconstruction technique. COMPARISON: Prior head CT of 2017-10-16 21:29 FINDINGS: BRAIN: Multiple small areas of low density seen in the basal ganglia bilaterally and in the right frontal centrum ovale, most compatible with multiple small old/chronic lacunar infarcts. Mild hypodensity in the deep bilateral frontal periventricular white matter, a nonspecific finding, but most likely representing mild chronic small vessel ischemic changes, in a patient of this age. No significant acute abnormality identified. No acute hemorrhage seen within the brain. No acute extra-axial fluid collections visualized. No evidence of significant mass effect within the brain. No CT findings to suggest an acute, large territorial infarct, however, small or early acute infarcts may not be visible on CT. VENTRICLES: No evidence of significant hydrocephalus. BONES/JOINTS: No acute fractures or other acute bony abnormality noted. SOFT TISSUES: No acute abnormality of the visualized soft tissues is seen. VASCULATURE: Atherosclerotic calcification. SINUSES: Postoperative changes involving the left maxillary sinus. Mild mucosal thickening in the left maxillary, bilateral anterior ethmoid, and right frontal sinuses MASTOID AIR CELLS: Mastoid air cells appear clear. IMPRESSION: - No acute findings seen within the brain. - See above for remaining findings.
[2017-10-18] MEDS: MethylPREDNISolone 40 mg Vial IVP SCH ×3 (01:00→18:33)
[2017-10-18] MEDS: Metoprolol 1 mg/ml Inj IVP PRN ×2 (03:25→09:12)
[2017-10-18 06:28] LABS: BASO % 0.1 % (0.0-2.0); HEMOGLOBIN 10.2 g/dL (11.0-16.0); MEAN CELL VOLUME 82.6 fL (81.0-99.0); MEAN CORPUSCULAR HEMOGLOBIN 27.8 pg (27.0-31.0); MEAN CORPUSCULAR HGB CONC 33.6 g/dL (33.0-37.0); MEAN PLATELET VOLUME 7.7 fL (7.2-11.7); MONO # 0.1 K/uL (0.0-0.8); MONO % 1.3 % (0.0-10.0); NEUT # 6.4 K/uL (1.8-7.0); NEUT % 85.6 % (50.0-75.0); NRBC % 0.1 % (0.0-2.0); RBC 3.67 Mil/uL (3.80-5.20); RED CELL DISTRIBUTION WIDTH 14.2 % (11.5-14.5); WHITE BLOOD COUNT 7.5 K/uL (4.8-10.8)
[2017-10-18 06:54] LABS: ALBUMIN 3.3 g/dL (3.5-5.0); ALT/SGPT 23 U/L (9-52); AST/SGOT 19 U/L (14-36); BLOOD UREA NITROGEN 15 mg/dL (7-17); CALCIUM 8.6 mg/dl (8.6-10.4); GFR AFRICAN-AMERICAN > 60; GFR NON-AFRICAN AMERICAN > 60
[2017-10-18] MEDS: Albuterol-Ipratrop 3 mg / 0.5 (3 ml) UD INH PRN (07:40)
--- NOTE | 2017-10-18 07:49 | CP.PCM.PN ---
Subjective - Date & Time of Evaluation Date of Evaluation: 10/18/17 Time of Evaluation: 07:47 - Subjective Subjective: PT ALERT, FEELS BETTER., LESS COUGH., LESS SOB., ROS; OTHERWISE NEG Objective - Vital Signs/Intake and Output Vital Signs (last 24 hours): Temp Pulse Resp BP Pulse Ox 98.7 F 126 H 17 101/63 95 10/18/17 04:00 10/18/17 06:00 10/18/17 06:00 10/18/17 05:14 10/18/17 06:00 Intake and Output: 10/18/17 10/18/17 06:59 18:59 Intake Total 50 Output Total 750 Balance -700 - Medications Medications: Current Medications Albuterol/Ipratropium (Duoneb 3 Mg/0.5 Mg (3 Ml) Ud) 3 ml INH RQ6 [facility] Last Admin: 10/18/17 01:14 Dose: Not Given Amitriptyline HCl (Elavil) 75 mg PO HS [facility] Last Admin: 10/17/17 21:09 Dose: 75 mg Amlodipine Besylate (Norvasc) 10 mg PO DAILY [facility] Last Admin: 10/17/17 10:34 Dose: 10 mg Aspirin (Ecotrin) 81 mg PO DAILY [facility] Last Admin: 10/17/17 10:34 Dose: 81 mg Budesonide (Pulmicort Respules) 0.5 mg INH RQ12 [facility] Carvedilol (Coreg) 25 mg PO BID [facility] Last Admin: 10/17/17 17:49 Dose: 25 mg Enalapril Maleate (Vasotec) 10 mg PO DAILY [facility] Last Admin: 10/17/17 10:34 Dose: 10 mg Enoxaparin Sodium (Lovenox) 80 mg SC Q12 [facility] Last Admin: 10/17/17 21:08 Dose: 80 mg Gabapentin (Neurontin) 300 mg PO BID [facility] Last Admin: 10/17/17 17:45 Dose: 300 mg Glipizide (Glucotrol) 10 mg PO BID [facility] Last Admin: 10/17/17 17:45 Dose: 10 mg Home Med (Vitamin A [Vitamin A]) 8,000 unit PO DAILY [facility] Insulin Aspart (Novolog) 0 unit SC ACHS [facility] PRN Reason: Protocol Last Admin: 10/17/17 21:16 Dose: Not Given Insulin Glargine (Lantus) 10 unit SC DAILY [facility] Last Admin: 10/17/17 10:32 Dose: 10 u Ketorolac Tromethamine (Toradol) 15 mg IVP Q6 PRN PRN Reason: Pain, moderate (4-7) Metformin HCl (Glucophage) 1,000 mg PO BID [facility] Last Admin: 10/17/17 17:45 Dose: 1,000 mg Methylprednisolone (Solu-Medrol) 40 mg IVP Q8H [facility] Last Admin: 10/18/17 01:00 Dose: 40 mg Metoprolol Tartrate (Lopressor) 5 mg IVP Q4H PRN PRN Reason: Systolic Blood Pressure Last Admin: 10/18/17 03:25 Dose: 5 mg Pantoprazole Sodium (Protonix Ec Tab) 40 mg PO DAILY [facility] Last Admin: 10/17/17 10:34 Dose: 40 mg Rosuvastatin Calcium (Crestor) 10 mg PO HS [facility] Last Admin: 10/17/17 21:09 Dose: 10 mg Temazepam (Restoril) 15 mg PO HS PRN PRN Reason: Insomnia Last Admin: 10/17/17 23:28 Dose: 15 mg - Labs Labs: 10/18/17 06:18 10/18/17 06:18 PT 10.3 SECONDS (9.7-12.2) 10/16/17 21:37 INR 0.9 10/16/17 21:37 APTT 20 SECONDS (21-34) L 10/16/17 21:37 - Constitutional Appears: No Acute Distress - Head Exam Head Exam: ATRAUMATIC, NORMOCEPHALIC - Eye Exam Eye Exam: EOMI, Normal appearance. absent: Scleral icterus - ENT Exam ENT Exam: Mucous Membranes Moist - Neck Exam Neck Exam: Normal Inspection. absent: Tenderness - Respiratory Exam Respiratory Exam: Decreased Breath Sounds. absent: Accessory Muscle Use, Chest Wall Tenderness, Wheezes, Respiratory Distress Additional comments: BETTER AIR MOVEMENT. - Cardiovascular Exam Cardiovascular Exam: Tachycardia - GI/Abdominal Exam GI & Abdominal Exam: Soft. absent: Tenderness - Rectal Exam Rectal Exam: Deferred - Extremities Exam Extremities Exam: absent: Calf Tenderness, Pedal Edema - Back Exam Back Exam: absent: CVA tenderness (L), CVA tenderness (R) - Neurological Exam Neurological Exam: Alert, Awake, CN II-XII Intact, Oriented x3 - Psychiatric Exam Psychiatric exam: Normal Mood - Skin Skin Exam: absent: Rash Assessment and Plan (1) Hypertension Status: Acute (2) Diabetes Status: Acute (3) Osteoarthritis Status: Acute (4) Obesity Status: Acute (5) Cough Status: Acute (6) CVA (cerebral vascular accident) Status: Acute (7) New onset a-fib Status: Acute - Assessment and Plan (Free Text) Assessment: RESP STATUS IMPROVING, LESS BRONCHOSPASM., ON STEROIDS, TAPER TOLERATED., GLUCOSE ELEVATED. CONT PULMICORT. CXR REVIEWED. CHANGE NEB BD PRN. MONITOR O2 SAT. HR CONTROL PER CARDIO., DIURESIS TOLERATED. NEURO EVAL IN PROGRESS. REPEAT CT HEAD NOTED. PROG GUARDED., DISCUSSED WITH STAFF
[2017-10-18] MEDS: (Lantus) Insulin Glargine, Recombinant SC SCH (09:11)
[2017-10-18] MEDS: (Novolog) Insulin Aspart, Recombinant 100 u/ml 10 ml vial SC SCH ×4 (09:11→21:41)
[2017-10-18] MEDS: Pantoprazole 40 mg EC Tab PO SCH (09:12)
[2017-10-18] MEDS: Enoxaparin 80 mg Syringe SC SCH ×2 (09:19→21:43)
[2017-10-18] MEDS ORDERED: VITAMIN A 8000 UNIT PO SCH (10:00)
--- NOTE | 2017-10-18 15:18 | CP.PCM.PN ---
Subjective - Date & Time of Evaluation Date of Evaluation: 10/18/17 Time of Evaluation: 10:40 - Subjective Subjective: clinically same Objective - Vital Signs/Intake and Output Vital Signs (last 24 hours): Temp Pulse Resp BP Pulse Ox 98.4 F 127 H 20 152/74 H 98 10/18/17 12:00 10/18/17 13:14 10/18/17 13:14 10/18/17 13:14 10/18/17 13:00 Intake and Output: 10/18/17 10/18/17 06:59 18:59 Intake Total 50 760 Output Total 950 500 Balance -900 260 - Medications Medications: Current Medications Albuterol/Ipratropium (Duoneb 3 Mg/0.5 Mg (3 Ml) Ud) 3 ml INH RQ6 PRN PRN Reason: Shortness of Breath Last Admin: 10/18/17 07:40 Dose: 3 ml Amitriptyline HCl (Elavil) 75 mg PO HS [facility] Last Admin: 10/17/17 21:09 Dose: 75 mg Amlodipine Besylate (Norvasc) 10 mg PO DAILY [facility] Last Admin: 10/18/17 09:13 Dose: 10 mg Aspirin (Ecotrin) 81 mg PO DAILY [facility] Last Admin: 10/18/17 09:12 Dose: 81 mg Budesonide (Pulmicort Respules) 0.5 mg INH RQ12 [facility] Carvedilol (Coreg) 25 mg PO BID [facility] Last Admin: 10/18/17 09:18 Dose: 25 mg Enalapril Maleate (Vasotec) 10 mg PO DAILY [facility] Last Admin: 10/18/17 09:13 Dose: 10 mg Enoxaparin Sodium (Lovenox) 80 mg SC Q12 [facility] Last Admin: 10/18/17 09:19 Dose: 80 mg Gabapentin (Neurontin) 300 mg PO BID [facility] Last Admin: 10/18/17 09:18 Dose: 300 mg Glipizide (Glucotrol) 10 mg PO BID [facility] Last Admin: 10/18/17 09:18 Dose: 10 mg Insulin Aspart (Novolog) 0 unit SC ACHS [facility] PRN Reason: Protocol Last Admin: 10/18/17 12:39 Dose: 4 unit Insulin Glargine (Lantus) 10 unit SC DAILY [facility] Last Admin: 10/18/17 09:11 Dose: 10 u Ketorolac Tromethamine (Toradol) 15 mg IVP Q6 PRN PRN Reason: Pain, moderate (4-7) Metformin HCl (Glucophage) 1,000 mg PO BID [facility] Last Admin: 10/18/17 09:12 Dose: 1,000 mg Methylprednisolone (Solu-Medrol) 30 mg IVP Q8H [facility] Last Admin: 10/18/17 09:14 Dose: 30 mg Metoprolol Tartrate (Lopressor) 5 mg IVP Q4H PRN PRN Reason: Systolic Blood Pressure Last Admin: 10/18/17 09:12 Dose: 5 mg Pantoprazole Sodium (Protonix Ec Tab) 40 mg PO DAILY [facility] Last Admin: 10/18/17 09:12 Dose: 40 mg Rosuvastatin Calcium (Crestor) 10 mg PO HS [facility] Last Admin: 10/17/17 21:09 Dose: 10 mg Temazepam (Restoril) 15 mg PO HS PRN PRN Reason: Insomnia Last Admin: 10/17/17 23:28 Dose: 15 mg - Labs Labs: 10/18/17 06:18 10/18/17 06:18 PT 10.3 SECONDS (9.7-12.2) 10/16/17 21:37 INR 0.9 10/16/17 21:37 APTT 20 SECONDS (21-34) L 10/16/17 21:37
[2017-10-18] MEDS: Budesonide 0.5 mg/2 ml Inhal Susp UD INH SCH (19:44)
[2017-10-19] MEDS: MethylPREDNISolone 40 mg Vial IVP SCH ×3 (01:32→17:29)
[2017-10-19] MEDS ORDERED: (Novolog) Insulin Aspart, Recombinant 100 u/ml 10 ml vial SC ONE (02:06)
[2017-10-19] MEDS: Budesonide 0.5 mg/2 ml Inhal Susp UD INH SCH ×2 (07:42→20:37)
[2017-10-19] MEDS: Albuterol-Ipratrop 3 mg / 0.5 (3 ml) UD INH PRN (07:42)
[2017-10-19] MEDS: (Novolog) Insulin Aspart, Recombinant 100 u/ml 10 ml vial SC SCH ×4 (08:30→22:08)
[2017-10-19] MEDS: Pantoprazole 40 mg EC Tab PO SCH (09:06)
--- NOTE | 2017-10-19 09:08 | CP.PCM.PN ---
Subjective - Date & Time of Evaluation Date of Evaluation: 10/19/17 Time of Evaluation: 09:05 - Subjective Subjective: PT ALERT, STILL WITH COUGH,. NO CP. ROS; OTHERWISE NEG Objective - Vital Signs/Intake and Output Vital Signs (last 24 hours): Temp Pulse Resp BP Pulse Ox 97.5 F L 121 H 18 124/79 99 10/19/17 07:35 10/19/17 07:35 10/19/17 07:35 10/19/17 07:35 10/19/17 07:35 Intake and Output: 10/19/17 10/19/17 06:59 18:59 Intake Total 240 Output Total 550 Balance -310 - Medications Medications: Current Medications Albuterol/Ipratropium (Duoneb 3 Mg/0.5 Mg (3 Ml) Ud) 3 ml INH RQ6 PRN PRN Reason: Shortness of Breath Last Admin: 10/19/17 07:42 Dose: 3 ml Amitriptyline HCl (Elavil) 75 mg PO HS [facility] Last Admin: 10/18/17 21:43 Dose: 75 mg Amlodipine Besylate (Norvasc) 10 mg PO DAILY [facility] Last Admin: 10/18/17 09:13 Dose: 10 mg Aspirin (Ecotrin) 81 mg PO DAILY [facility] Last Admin: 10/18/17 09:12 Dose: 81 mg Budesonide (Pulmicort Respules) 0.5 mg INH RQ12 [facility] Last Admin: 10/19/17 07:42 Dose: 0.5 mg Carvedilol (Coreg) 25 mg PO BID [facility] Last Admin: 10/18/17 18:33 Dose: 25 mg Enalapril Maleate (Vasotec) 10 mg PO DAILY [facility] Last Admin: 10/18/17 09:13 Dose: 10 mg Enoxaparin Sodium (Lovenox) 80 mg SC Q12 [facility] Last Admin: 10/18/17 21:43 Dose: 80 mg Gabapentin (Neurontin) 300 mg PO BID [facility] Last Admin: 10/18/17 18:33 Dose: 300 mg Glipizide (Glucotrol) 10 mg PO BID [facility] Last Admin: 10/18/17 18:33 Dose: 10 mg Insulin Aspart (Novolog) 0 unit SC ACHS [facility] PRN Reason: Protocol Last Admin: 10/19/17 08:30 Dose: 4 unit Insulin Glargine (Lantus) 10 unit SC DAILY [facility] Last Admin: 10/18/17 09:11 Dose: 10 u Ketorolac Tromethamine (Toradol) 15 mg IVP Q6 PRN PRN Reason: Pain, moderate (4-7) Metformin HCl (Glucophage) 1,000 mg PO BID [facility] Last Admin: 10/18/17 18:32 Dose: 1,000 mg Methylprednisolone (Solu-Medrol) 30 mg IVP Q8H [facility] Last Admin: 10/19/17 08:36 Dose: 30 mg Metoprolol Tartrate (Lopressor) 5 mg IVP Q4H PRN PRN Reason: Systolic Blood Pressure Last Admin: 10/18/17 09:12 Dose: 5 mg Pantoprazole Sodium (Protonix Ec Tab) 40 mg PO DAILY [facility] Last Admin: 10/18/17 09:12 Dose: 40 mg Rosuvastatin Calcium (Crestor) 10 mg PO HS [facility] Last Admin: 10/18/17 21:43 Dose: 10 mg Temazepam (Restoril) 15 mg PO HS PRN PRN Reason: Insomnia Last Admin: 10/18/17 21:43 Dose: 15 mg - Labs Labs: 10/18/17 06:18 10/18/17 06:18 PT 10.3 SECONDS (9.7-12.2) 10/16/17 21:37 INR 0.9 10/16/17 21:37 APTT 20 SECONDS (21-34) L 10/16/17 21:37 - Constitutional Appears: No Acute Distress - Head Exam Head Exam: ATRAUMATIC, NORMOCEPHALIC - Eye Exam Eye Exam: EOMI, Normal appearance - ENT Exam ENT Exam: Mucous Membranes Moist - Neck Exam Neck Exam: Normal Inspection. absent: Tenderness - Respiratory Exam Respiratory Exam: Decreased Breath Sounds, Prolonged Expiratory Phase, Rhonchi. absent: Accessory Muscle Use, Wheezes, Respiratory Distress - Cardiovascular Exam Cardiovascular Exam: RRR, +S1, +S2 - GI/Abdominal Exam GI & Abdominal Exam: Soft. absent: Tenderness - Rectal Exam Rectal Exam: Deferred - Extremities Exam Extremities Exam: absent: Calf Tenderness, Pedal Edema - Back Exam Back Exam: absent: CVA tenderness (L), CVA tenderness (R) - Neurological Exam Neurological Exam: Alert, Awake, CN II-XII Intact, Oriented x3 - Psychiatric Exam Psychiatric exam: absent: Normal Mood - Skin Skin Exam: absent: Rash Assessment and Plan (1) Hypertension Status: Acute (2) Diabetes Status: Acute (3) Osteoarthritis Status: Acute (4) Obesity Status: Acute (5) Cough Status: Acute (6) CVA (cerebral vascular accident) Status: Acute (7) New onset a-fib Status: Acute - Assessment and Plan (Free Text) Assessment: RESP STATUS NO SIG CHANGE., CONT IV STEROIDS, TAPER TOLERATED., LESS BRONCHOSPASM., HOLD NEB BD DUE TO RUN VT., CHECK ELECTROLYTES. CONT PULMICORT. CXR REVIEWED., MONITOR O2 SAT. PROG GUARDED., DISCUSSED WITH STAFF AT LENGTH,
[2017-10-19] MEDS: (Lantus) Insulin Glargine, Recombinant SC SCH (09:10)
[2017-10-19] MEDS: Enoxaparin 80 mg Syringe SC SCH (09:16)
--- NOTE | 2017-10-19 10:07 | VASCLAB ---
PROCEDURE: HISTORY: Post Code Stroke COMPARISON: None available. TECHNIQUE: Grayscale and duplex Doppler evaluation of the cervical carotid and vertebral arteries were performed. The common carotid, carotid bifurcations and cervical Internal Carotid Artery (ICA) and proximal External Carotid Artery (ECA) were evaluated. The vertebral arteries were evaluated for gross patency and flow direction. Report prepared by Michael Lindquist, BS, RVT FINDINGS: RIGHT CAROTID ARTERIES: 1. Common Carotid Artery: No significant focal plaque formation of the right common carotid artery. Maximum Peak Systolic velocity: 37 cm/sec: End-diastolic velocity 13 cm/sec. 2. Carotid Bifurcation: Calcific plaque formation. Maximum Peak Systolic velocity: 34 cm/sec: End-diastolic velocity 9 cm/sec. 3. Internal Carotid Artery: Minimal plaque formation of the right proximal ICA which does not result in hemodynamically significant stenosis. Plaque description: Calcific 3.1. Proximal Segment: Peak systolic velocity 64 cm/sec: End-diastolic velocity 19 cm/sec - % stenosis 0-15% 3.2. Middle Segment: Peak systolic velocity 56 cm/sec: End-diastolic velocity 20 cm/sec - % stenosis 0-15% 3.3. Distal Segment: Peak systolic velocity 71 cm/sec: End-diastolic velocity 23 cm/sec - % stenosis 0-15% 4. External Carotid Artery: No significant focal plaque formation. Peak systolic velocity 114 cm/sec 5. ICA/CCA Ratio: 1.9 LEFT CAROTID ARTERIES: 1. Common Carotid Artery: No significant focal plaque formation of the left common carotid artery. Maximum Peak Systolic velocity: 48 cm/sec: End-diastolic velocity 11 cm/sec. 2. Carotid Bifurcation: Calcific plaque formation. Maximum Peak Systolic velocity: 41 cm/sec: End-diastolic velocity 10 cm/sec. 3. Internal Carotid Artery: Moderate plaque formation of the left proximal ICA which does not results in hemodynamically significant stenosis. Plaque description: Calcific 3.1. Proximal Segment: Peak systolic velocity 61 cm/sec: End-diastolic velocity 19 cm/sec - % stenosis 0-15% 3.2. Middle Segment: Peak systolic velocity 58 cm/sec: End-diastolic velocity 20 cm/sec - % stenosis 0-15% 3.3. Distal Segment: Peak systolic velocity 47 cm/sec: End-diastolic velocity 16 cm/sec - % stenosis 0-15% 4. External Carotid Artery: No significant focal plaque formation. Peak systolic velocity 76 cm/sec 5. ICA/CCA Ratio: 1.3 VERTEBRAL ARTERIES: 1. Right Vertebral Artery: The right vertebral artery flow direction is antegrade. 2. Left Vertebral Artery: The left vertebral artery flow direction is antegrade. OTHER FINDINGS: 1. Right Brachial Blood pressure: mmHg. 2. Left Brachial Blood pressure: mmHg. IMPRESSION: RIGHT: Duplex scan does not suggest hemodynamically significant stenosis of the right extracranial carotid arteries. LEFT: Duplex scan does not suggest hemodynamically significant stenosis of the left extracranial carotid arteries.
[2017-10-19 11:25] LABS: BLOOD UREA NITROGEN 30 mg/dL (7-17); CALCIUM 9.1 mg/dl (8.6-10.4); GFR AFRICAN-AMERICAN > 60; GFR NON-AFRICAN AMERICAN 55
--- NOTE | 2017-10-19 11:38 | CP.PCM.PN ---
Subjective - Date & Time of Evaluation Date of Evaluation: 10/19/17 Time of Evaluation: 11:36 - Subjective Subjective: Ms. Coombs was seen and examined at the bedside. She is alert, oriented in all spheres.She denies any headache, dizziness, lightheadedness, complains of not able to get enough sleep. She is able to follow simple commands. CT scan of the head showed no intracranial findings.There was no untoward events overnight. Objective - Vital Signs/Intake and Output Vital Signs (last 24 hours): Temp Pulse Resp BP Pulse Ox 97.5 F L 118 H 18 126/68 99 10/19/17 07:35 10/19/17 09:05 10/19/17 07:35 10/19/17 09:06 10/19/17 07:35 Intake and Output: 10/19/17 10/19/17 06:59 18:59 Intake Total 240 Output Total 550 Balance -310 - Medications Medications: Current Medications Albuterol/Ipratropium (Duoneb 3 Mg/0.5 Mg (3 Ml) Ud) 3 ml INH RQ6 PRN PRN Reason: Shortness of Breath Last Admin: 10/19/17 07:42 Dose: 3 ml Amitriptyline HCl (Elavil) 75 mg PO HS [facility] Last Admin: 10/18/17 21:43 Dose: 75 mg Amlodipine Besylate (Norvasc) 10 mg PO DAILY [facility] Last Admin: 10/19/17 09:07 Dose: 10 mg Aspirin (Ecotrin) 81 mg PO DAILY [facility] Last Admin: 10/19/17 09:07 Dose: 81 mg Budesonide (Pulmicort Respules) 0.5 mg INH RQ12 [facility] Last Admin: 10/19/17 07:42 Dose: 0.5 mg Carvedilol (Coreg) 25 mg PO BID [facility] Last Admin: 10/19/17 09:06 Dose: 25 mg Enalapril Maleate (Vasotec) 10 mg PO DAILY [facility] Last Admin: 10/19/17 09:06 Dose: 10 mg Enoxaparin Sodium (Lovenox) 80 mg SC Q12 [facility] Last Admin: 10/19/17 09:16 Dose: 80 mg Gabapentin (Neurontin) 300 mg PO BID [facility] Last Admin: 10/19/17 09:07 Dose: 300 mg Glipizide (Glucotrol) 10 mg PO BID [facility] Last Admin: 10/19/17 09:06 Dose: 10 mg Insulin Aspart (Novolog) 0 unit SC ACHS [facility] PRN Reason: Protocol Last Admin: 10/19/17 08:30 Dose: 4 unit Insulin Glargine (Lantus) 10 unit SC DAILY [facility] Last Admin: 10/19/17 09:10 Dose: 10 u Metformin HCl (Glucophage) 1,000 mg PO BID [facility] Last Admin: 10/19/17 09:06 Dose: 1,000 mg Methylprednisolone (Solu-Medrol) 30 mg IVP Q8H [facility] Last Admin: 10/19/17 08:36 Dose: 30 mg Metoprolol Tartrate (Lopressor) 5 mg IVP Q4H PRN PRN Reason: Systolic Blood Pressure Last Admin: 10/18/17 09:12 Dose: 5 mg Pantoprazole Sodium (Protonix Ec Tab) 40 mg PO DAILY [facility] Last Admin: 10/19/17 09:06 Dose: 40 mg Rosuvastatin Calcium (Crestor) 10 mg PO HS [facility] Last Admin: 10/18/17 21:43 Dose: 10 mg Temazepam (Restoril) 15 mg PO HS PRN PRN Reason: Insomnia Last Admin: 10/18/17 21:43 Dose: 15 mg - Labs Labs: 10/18/17 06:18 10/19/17 10:48 PT 10.3 SECONDS (9.7-12.2) 10/16/17 21:37 INR 0.9 10/16/17 21:37 APTT 20 SECONDS (21-34) L 10/16/17 21:37 - Constitutional Appears: No Acute Distress - Head Exam Head Exam: NORMAL INSPECTION - Neurological Exam Neurological Exam: Alert, Awake Neuro motor strength exam: Left Upper Extremity: 4, Right Upper Extremity: 5, Left Lower Extremity: 5, Right Lower Extremity: 5 Additional comments: She is alert, oriented, able to follow simple commands. Sensation is intact. Assessment and Plan (1) Lacunar infarction Assessment & Plan: Case discussed with Dr. Andujar, continue all current medical, physical, and occupational therapies. Recommend MRI of the brain to further evaluate and MRI of the spine to evaluate left leg weakness. Status: Acute
--- NOTE | 2017-10-19 13:57 | CP.PCM.PN ---
Subjective - Date & Time of Evaluation Date of Evaluation: 10/19/17 Time of Evaluation: 10:40 - Subjective Subjective: clinically same Objective - Vital Signs/Intake and Output Vital Signs (last 24 hours): Temp Pulse Resp BP Pulse Ox 97.5 F L 118 H 18 126/68 99 10/19/17 07:35 10/19/17 09:05 10/19/17 07:35 10/19/17 09:06 10/19/17 07:35 Intake and Output: 10/19/17 10/19/17 06:59 18:59 Intake Total 240 Output Total 550 Balance -310 - Medications Medications: Current Medications Albuterol/Ipratropium (Duoneb 3 Mg/0.5 Mg (3 Ml) Ud) 3 ml INH RQ6 PRN PRN Reason: Shortness of Breath Last Admin: 10/19/17 07:42 Dose: 3 ml Amitriptyline HCl (Elavil) 75 mg PO HS [facility] Last Admin: 10/18/17 21:43 Dose: 75 mg Amlodipine Besylate (Norvasc) 10 mg PO DAILY [facility] Last Admin: 10/19/17 09:07 Dose: 10 mg Aspirin (Ecotrin) 81 mg PO DAILY [facility] Last Admin: 10/19/17 09:07 Dose: 81 mg Budesonide (Pulmicort Respules) 0.5 mg INH RQ12 [facility] Last Admin: 10/19/17 07:42 Dose: 0.5 mg Carvedilol (Coreg) 25 mg PO BID [facility] Last Admin: 10/19/17 09:06 Dose: 25 mg Enalapril Maleate (Vasotec) 10 mg PO DAILY [facility] Last Admin: 10/19/17 09:06 Dose: 10 mg Enoxaparin Sodium (Lovenox) 80 mg SC Q12 [facility] Last Admin: 10/19/17 09:16 Dose: 80 mg Gabapentin (Neurontin) 300 mg PO BID [facility] Last Admin: 10/19/17 09:07 Dose: 300 mg Glipizide (Glucotrol) 10 mg PO BID [facility] Last Admin: 10/19/17 09:06 Dose: 10 mg Insulin Aspart (Novolog) 0 unit SC ACHS [facility] PRN Reason: Protocol Last Admin: 10/19/17 12:42 Dose: 5 unit Insulin Glargine (Lantus) 10 unit SC DAILY [facility] Last Admin: 10/19/17 09:10 Dose: 10 u Metformin HCl (Glucophage) 1,000 mg PO BID [facility] Last Admin: 10/19/17 09:06 Dose: 1,000 mg Methylprednisolone (Solu-Medrol) 30 mg IVP Q8H [facility] Last Admin: 10/19/17 08:36 Dose: 30 mg Metoprolol Tartrate (Lopressor) 5 mg IVP Q4H PRN PRN Reason: Systolic Blood Pressure Last Admin: 10/18/17 09:12 Dose: 5 mg Pantoprazole Sodium (Protonix Ec Tab) 40 mg PO DAILY [facility] Last Admin: 10/19/17 09:06 Dose: 40 mg Rosuvastatin Calcium (Crestor) 10 mg PO HS [facility] Last Admin: 10/18/17 21:43 Dose: 10 mg Temazepam (Restoril) 15 mg PO HS PRN PRN Reason: Insomnia Last Admin: 10/18/17 21:43 Dose: 15 mg - Labs Labs: 10/18/17 06:18 10/19/17 10:48 PT 10.3 SECONDS (9.7-12.2) 10/16/17 21:37 INR 0.9 10/16/17 21:37 APTT 20 SECONDS (21-34) L 10/16/17 21:37 - Constitutional Appears: Well - Head Exam Head Exam: ATRAUMATIC, NORMAL INSPECTION, NORMOCEPHALIC - Eye Exam Eye Exam: EOMI, Normal appearance, PERRL Pupil Exam: NORMAL ACCOMODATION, PERRL - ENT Exam ENT Exam: Mucous Membranes Moist, Normal Exam - Neck Exam Neck Exam: Full ROM, Normal Inspection. absent: Lymphadenopathy - Respiratory Exam Respiratory Exam: Decreased Breath Sounds - Cardiovascular Exam Cardiovascular Exam: REGULAR RHYTHM, +S1, +S2 - GI/Abdominal Exam GI & Abdominal Exam: Soft, Diminished Bowel Sounds - Rectal Exam Rectal Exam: Deferred
[2017-10-20] MEDS: MethylPREDNISolone 40 mg Vial IVP SCH ×4 (00:43→22:11)
[2017-10-20] MEDS: Albuterol-Ipratrop 3 mg / 0.5 (3 ml) UD INH PRN ×2 (07:39→19:50)
[2017-10-20] MEDS: Budesonide 0.5 mg/2 ml Inhal Susp UD INH SCH ×2 (07:39→19:50)
--- NOTE | 2017-10-20 07:39 | CP.PCM.PN ---
Subjective - Date & Time of Evaluation Date of Evaluation: 10/20/17 Time of Evaluation: 07:39 - Subjective Subjective: Ms. Coombs was seen and examined at the bedside. She is alert, oriented in all spheres.She denies any headache, dizziness, lightheadedness, complains of not able to get enough sleep. She is able to follow simple commands.She is able to do some of her ADL such as combing her hair, and brushing her teeth. According to staff, the patient attempted to sit at the edge of the bed and unable to maintain posture. The patient did not hit her head.She is unable to control bladder and currently connected to an external catheter. Carotid ultrasound did not show any significant stenosis.There was no untoward events overnight. Objective - Vital Signs/Intake and Output Vital Signs (last 24 hours): Temp Pulse Resp BP Pulse Ox 97.7 F 104 H 20 114/70 100 10/20/17 04:00 10/20/17 04:00 10/20/17 04:00 10/20/17 04:00 10/19/17 23:05 Intake and Output: 10/20/17 10/20/17 06:59 18:59 Output Total 400 Balance -400 - Medications Medications: Current Medications Albuterol/Ipratropium (Duoneb 3 Mg/0.5 Mg (3 Ml) Ud) 3 ml INH RQ6 PRN PRN Reason: Shortness of Breath Last Admin: 10/19/17 07:42 Dose: 3 ml Amitriptyline HCl (Elavil) 75 mg PO HS [facility] Last Admin: 10/19/17 22:08 Dose: 75 mg Amlodipine Besylate (Norvasc) 10 mg PO DAILY [facility] Last Admin: 10/19/17 09:07 Dose: 10 mg Aspirin (Ecotrin) 81 mg PO DAILY [facility] Last Admin: 10/19/17 09:07 Dose: 81 mg Budesonide (Pulmicort Respules) 0.5 mg INH RQ12 [facility] Last Admin: 10/19/17 20:37 Dose: 0.5 mg Carvedilol (Coreg) 25 mg PO BID [facility] Last Admin: 10/19/17 17:29 Dose: 25 mg Enalapril Maleate (Vasotec) 10 mg PO DAILY [facility] Last Admin: 10/19/17 09:06 Dose: 10 mg Enoxaparin Sodium (Lovenox) 80 mg SC Q12 [facility] Last Admin: 10/19/17 09:16 Dose: 80 mg Gabapentin (Neurontin) 300 mg PO BID [facility] Last Admin: 10/19/17 17:29 Dose: 300 mg Glipizide (Glucotrol) 10 mg PO BID [facility] Last Admin: 10/19/17 17:29 Dose: 10 mg Insulin Aspart (Novolog) 0 unit SC ACHS [facility] PRN Reason: Protocol Last Admin: 10/19/17 22:08 Dose: 2 unit Insulin Glargine (Lantus) 10 unit SC DAILY [facility] Last Admin: 10/19/17 09:10 Dose: 10 u Metformin HCl (Glucophage) 1,000 mg PO BID [facility] Last Admin: 10/19/17 17:29 Dose: 1,000 mg Methylprednisolone (Solu-Medrol) 30 mg IVP Q8H [facility] Last Admin: 10/20/17 00:43 Dose: 30 mg Metoprolol Tartrate (Lopressor) 5 mg IVP Q4H PRN PRN Reason: Systolic Blood Pressure Last Admin: 10/18/17 09:12 Dose: 5 mg Pantoprazole Sodium (Protonix Ec Tab) 40 mg PO DAILY [facility] Last Admin: 10/19/17 09:06 Dose: 40 mg Rosuvastatin Calcium (Crestor) 10 mg PO HS [facility] Last Admin: 10/19/17 22:08 Dose: 10 mg Temazepam (Restoril) 15 mg PO HS PRN PRN Reason: Insomnia Last Admin: 10/19/17 22:08 Dose: 15 mg - Labs Labs: 10/18/17 06:18 10/19/17 10:48 PT 10.3 SECONDS (9.7-12.2) 10/16/17 21:37 INR 0.9 10/16/17 21:37 APTT 20 SECONDS (21-34) L 10/16/17 21:37 - Constitutional Appears: No Acute Distress - Head Exam Head Exam: NORMAL INSPECTION - Neurological Exam Neurological Exam: Alert, Awake, Oriented x3 Neuro motor strength exam: Left Upper Extremity: 5, Right Upper Extremity: 5, Left Lower Extremity: 3, Right Lower Extremity: 4 Additional comments: Neurological unchanged except her left leg weakness. Sensation remains intact. Assessment and Plan (1) Lacunar infarction Assessment & Plan: Case discussed with Dr. Sorto, continue all current medical, physical, and occupational therapies. Pending MRI of the brain, spine, and echocardiogram. Status: Acute
[2017-10-20] MEDS: (Novolog) Insulin Aspart, Recombinant 100 u/ml 10 ml vial SC SCH ×4 (08:42→21:56)
--- NOTE | 2017-10-20 09:00 | CP.PCM.PN ---
Subjective - Date & Time of Evaluation Date of Evaluation: 10/20/17 Time of Evaluation: 08:58 - Subjective Subjective: PT ALERT, OOB IN CHAIR., LESS COUGH., ROS; OTHERWISE NEG. Objective - Vital Signs/Intake and Output Vital Signs (last 24 hours): Temp Pulse Resp BP Pulse Ox 97.9 F 109 H 20 110/82 98 10/20/17 07:10 10/20/17 07:10 10/20/17 07:10 10/20/17 07:10 10/20/17 07:10 Intake and Output: 10/20/17 10/20/17 06:59 18:59 Output Total 400 Balance -400 - Medications Medications: Current Medications Albuterol/Ipratropium (Duoneb 3 Mg/0.5 Mg (3 Ml) Ud) 3 ml INH RQ6 PRN PRN Reason: Shortness of Breath Last Admin: 10/20/17 07:39 Dose: 3 ml Amitriptyline HCl (Elavil) 75 mg PO HS [facility] Last Admin: 10/19/17 22:08 Dose: 75 mg Amlodipine Besylate (Norvasc) 10 mg PO DAILY [facility] Last Admin: 10/19/17 09:07 Dose: 10 mg Aspirin (Ecotrin) 81 mg PO DAILY [facility] Last Admin: 10/19/17 09:07 Dose: 81 mg Budesonide (Pulmicort Respules) 0.5 mg INH RQ12 [facility] Last Admin: 10/20/17 07:39 Dose: 0.5 mg Carvedilol (Coreg) 25 mg PO BID [facility] Last Admin: 10/19/17 17:29 Dose: 25 mg Enalapril Maleate (Vasotec) 10 mg PO DAILY [facility] Last Admin: 10/19/17 09:06 Dose: 10 mg Enoxaparin Sodium (Lovenox) 80 mg SC Q12 [facility] Last Admin: 10/19/17 09:16 Dose: 80 mg Gabapentin (Neurontin) 300 mg PO BID [facility] Last Admin: 10/19/17 17:29 Dose: 300 mg Glipizide (Glucotrol) 10 mg PO BID [facility] Last Admin: 10/19/17 17:29 Dose: 10 mg Insulin Aspart (Novolog) 0 unit SC ACHS [facility] PRN Reason: Protocol Last Admin: 10/20/17 08:42 Dose: 5 unit Insulin Glargine (Lantus) 10 unit SC DAILY [facility] Last Admin: 10/19/17 09:10 Dose: 10 u Metformin HCl (Glucophage) 1,000 mg PO BID [facility] Last Admin: 10/19/17 17:29 Dose: 1,000 mg Methylprednisolone (Solu-Medrol) 30 mg IVP Q8H [facility] Last Admin: 10/20/17 08:43 Dose: 30 mg Metoprolol Tartrate (Lopressor) 5 mg IVP Q4H PRN PRN Reason: Systolic Blood Pressure Last Admin: 10/18/17 09:12 Dose: 5 mg Pantoprazole Sodium (Protonix Ec Tab) 40 mg PO DAILY [facility] Last Admin: 10/19/17 09:06 Dose: 40 mg Rosuvastatin Calcium (Crestor) 10 mg PO HS [facility] Last Admin: 10/19/17 22:08 Dose: 10 mg Temazepam (Restoril) 15 mg PO HS PRN PRN Reason: Insomnia Last Admin: 10/19/17 22:08 Dose: 15 mg - Labs Labs: 10/18/17 06:18 10/19/17 10:48 PT 10.3 SECONDS (9.7-12.2) 10/16/17 21:37 INR 0.9 10/16/17 21:37 APTT 20 SECONDS (21-34) L 10/16/17 21:37 - Constitutional Appears: Non-toxic, No Acute Distress - Head Exam Head Exam: ATRAUMATIC, NORMOCEPHALIC - Eye Exam Eye Exam: EOMI, Normal appearance - ENT Exam ENT Exam: Mucous Membranes Moist - Neck Exam Neck Exam: absent: Lymphadenopathy, Tenderness - Respiratory Exam Respiratory Exam: Decreased Breath Sounds, Prolonged Expiratory Phase. absent: Wheezes - Cardiovascular Exam Cardiovascular Exam: RRR, +S1, +S2 - GI/Abdominal Exam GI & Abdominal Exam: Soft. absent: Tenderness - Rectal Exam Rectal Exam: Deferred - Extremities Exam Extremities Exam: absent: Calf Tenderness, Pedal Edema - Back Exam Back Exam: absent: CVA tenderness (L), CVA tenderness (R) - Neurological Exam Neurological Exam: Alert, Awake, CN II-XII Intact, Oriented x3 - Psychiatric Exam Psychiatric exam: Normal Mood - Skin Skin Exam: absent: Rash Assessment and Plan (1) Hypertension Status: Acute (2) Diabetes Status: Acute (3) Osteoarthritis Status: Acute (4) Obesity Status: Acute (5) Cough Status: Acute (6) CVA (cerebral vascular accident) Status: Acute (7) New onset a-fib Status: Acute - Assessment and Plan (Free Text) Assessment: RESP STATUS IMPROVING., LESS BRONCHOSPASM., CONT STEROID TAPER, ELEV. GLUCOSE NOTED., CONT NEB BD AND PULMICORT., MONITOR O2 SAT. CXR REVIEWED., F/U ECHO. FOR MRI PER NEURO. PROG GUARDED., DISCUSSED WITH STAFF.
[2017-10-20] MEDS: Enoxaparin 80 mg Syringe SC SCH ×2 (09:45→21:51)
[2017-10-20] MEDS: Pantoprazole 40 mg EC Tab PO SCH (09:48)
[2017-10-20] MEDS: (Lantus) Insulin Glargine, Recombinant SC SCH (09:49)
--- NOTE | 2017-10-20 11:39 | MRI ---
PROCEDURE: MRI BRAIN WITHOUT CONTRAST HISTORY: lacunar infarct COMPARISON: Noncontrast head CT from 10/20 TECHNIQUE: Multiplanar, multisequence MR images of the brain were obtained without intravenous contrast enhancement. FINDINGS: HEMORRHAGE: None DWI: No evidence of an acute or early subacute infarction. BRAIN PARENCHYMA: There are mild chronic microangiopathic changes. There is no mass, mass effect or abnormal extra-axial fluid collection. The midline sagittal structures are normal. VENTRICLES: There is mild age-related global parenchymal volume loss and proportionate enlargement of the ventricles and cortical sulci. There are prominent perivascular spaces in bilateral basal ganglia with CRANIUM: There is normal bone marrow signal pattern. There is hyperostosis frontalis interna. ORBITS: Symmetric and normal in appearance. PARANASAL SINUSES/MASTOIDS: Predominantly clear. VASCULAR SYSTEM: There are normal signal voids in the larger intracranial arteries. OTHER FINDINGS: None. IMPRESSION: No acute intracranial abnormality. Mild chronic microangiopathic changes and mild age-related global parenchymal volume loss.
--- NOTE | 2017-10-20 12:22 | MRI ---
PROCEDURE: MR CERVICAL SPINE WITHOUT CONTRAST HISTORY: Left leg weakness COMPARISON: None available. TECHNIQUE: Multiecho multiplanar sequences were performed through the cervical spine without the use of intravenous contrast. FINDINGS: There is normal alignment of the cervical vertebral bodies. There is normal cervical lordosis. There is no acute fracture or spondylolisthesis. The craniocervical junction is normal. There is mild degenerative osteoarthrosis in the atlantoaxial joint. Bone marrow signal is within normal limits. 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 The cervical cord is normal in contour, caliber and has normal intrinsic signal. The paraspinous soft tissues are normal. C2-C3: No disc herniation, spinal canal stenosis or neural foraminal narrowing. C3-C4: Disc osteophyte complex and superimposed small right posterolateral disc protrusion mild bilateral facet arthropathy contribute to mild right neural foraminal narrowing. Mild spinal canal stenosis. C4-C5: Disc osteophyte complex with small posterolateral disc protrusions. Mild bilateral facet arthropathy contribute to moderate right neural foraminal narrowing. C5-C6: Disc osteophyte complex and mild spinal canal stenosis. Mild bilateral facet arthropathy contribute to moderate right neural foraminal narrowing. C6-C7: Disc osteophyte complex without central spinal canal stenosis. Mild bilateral facet arthropathy contribute to mild need right neural foraminal narrowing. C7-T1: No disc herniation, spinal canal stenosis or neural foraminal narrowing. OTHER FINDINGS: None. 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 Additional comments as described above.
--- NOTE | 2017-10-20 12:40 | CP.PCM.PN ---
Subjective - Date & Time of Evaluation Date of Evaluation: 10/20/17 Time of Evaluation: 12:00 - Subjective Subjective: No shortness of breath, heart rate is controlled, anticoagulation. Had White complexes probable aberration observe Objective - Vital Signs/Intake and Output Vital Signs (last 24 hours): Temp Pulse Resp BP Pulse Ox 97.9 F 101 H 20 119/72 97 10/20/17 12:25 10/20/17 12:25 10/20/17 12:25 10/20/17 12:31 10/20/17 12:25 Intake and Output: 10/20/17 10/20/17 06:59 18:59 Output Total 400 Balance -400 - Medications Medications: Current Medications Albuterol/Ipratropium (Duoneb 3 Mg/0.5 Mg (3 Ml) Ud) 3 ml INH RQ6 PRN PRN Reason: Shortness of Breath Last Admin: 10/20/17 07:39 Dose: 3 ml Amitriptyline HCl (Elavil) 75 mg PO HS [facility] Last Admin: 10/19/17 22:08 Dose: 75 mg Amlodipine Besylate (Norvasc) 10 mg PO DAILY [facility] Last Admin: 10/20/17 12:31 Dose: 10 mg Aspirin (Ecotrin) 81 mg PO DAILY [facility] Last Admin: 10/20/17 09:48 Dose: 81 mg Budesonide (Pulmicort Respules) 0.5 mg INH RQ12 [facility] Last Admin: 10/20/17 07:39 Dose: 0.5 mg Carvedilol (Coreg) 25 mg PO BID [facility] Last Admin: 10/20/17 09:47 Dose: 25 mg Diltiazem HCl (Cardizem) 30 mg PO QID [facility] Last Admin: 10/20/17 09:48 Dose: 30 mg Enalapril Maleate (Vasotec) 10 mg PO DAILY [facility] Last Admin: 10/20/17 12:31 Dose: 10 mg Enoxaparin Sodium (Lovenox) 80 mg SC Q12 [facility] Last Admin: 10/20/17 09:45 Dose: 80 mg Gabapentin (Neurontin) 300 mg PO BID [facility] Last Admin: 10/20/17 09:48 Dose: 300 mg Glipizide (Glucotrol) 10 mg PO BID [facility] Last Admin: 10/20/17 09:46 Dose: 10 mg Insulin Aspart (Novolog) 0 unit SC ACHS [facility] PRN Reason: Protocol Last Admin: 10/20/17 08:42 Dose: 5 unit Insulin Glargine (Lantus) 10 unit SC DAILY [facility] Last Admin: 10/20/17 09:49 Dose: 10 u Metformin HCl (Glucophage) 1,000 mg PO BID [facility] Last Admin: 10/20/17 09:46 Dose: 1,000 mg Methylprednisolone (Solu-Medrol) 30 mg IVP Q12 [facility] Last Admin: 10/20/17 09:18 Dose: Not Given Metoprolol Tartrate (Lopressor) 5 mg IVP Q4H PRN PRN Reason: Systolic Blood Pressure Last Admin: 10/18/17 09:12 Dose: 5 mg Pantoprazole Sodium (Protonix Ec Tab) 40 mg PO DAILY [facility] Last Admin: 10/20/17 09:48 Dose: 40 mg Rosuvastatin Calcium (Crestor) 10 mg PO HS [facility] Last Admin: 10/19/17 22:08 Dose: 10 mg Temazepam (Restoril) 15 mg PO HS PRN PRN Reason: Insomnia Last Admin: 10/19/17 22:08 Dose: 15 mg - Labs Labs: 10/18/17 06:18 10/19/17 10:48 PT 10.3 SECONDS (9.7-12.2) 10/16/17 21:37 INR 0.9 10/16/17 21:37 APTT 20 SECONDS (21-34) L 10/16/17 21:37 - Constitutional Appears: Non-toxic - Head Exam Head Exam: ATRAUMATIC - Eye Exam Eye Exam: EOMI - ENT Exam ENT Exam: Mucous Membranes Moist - Neck Exam Neck Exam: absent: Lymphadenopathy, Thyromegaly - Respiratory Exam Respiratory Exam: Clear to Ausculation Bilateral. absent: Rales - Cardiovascular Exam Cardiovascular Exam: Irregular Rhythm, Murmur - GI/Abdominal Exam GI & Abdominal Exam: Normal Bowel Sounds. absent: Organomegaly - Rectal Exam Rectal Exam: Deferred - Extremities Exam Extremities Exam: Normal Capillary Refill. absent: Calf Tenderness - Neurological Exam Neurological Exam: Alert, Oriented x3 - Psychiatric Exam Psychiatric exam: Normal Mood - Skin Skin Exam: Dry Assessment and Plan (1) CVA (cerebral vascular accident) Status: Acute (2) New onset a-fib Status: Acute
--- NOTE | 2017-10-20 18:29 | CARD ---
APPROVED REPORT EXAM: Two-dimensional and M-mode echocardiogram with Doppler and color Doppler. Other Information Quality : GoodRhythm : INDICATION CVA/TIA RISK FACTORS Hypertension Hyperlipidemia 2D DIMENSIONS IVSd1.3 (0.7-1.1cm)LVDd4.1 (3.9-5.9cm) PWd1.4 (0.7-1.1cm)LVDs3.1 (2.5-4.0cm) FS (%) 26.2 %LVEF (%)51.8 (>50%) M-Mode DIMENSIONS Left Atrium (MM)4.72 (2.5-4.0cm)Aortic Root2.81 (2.2-3.7cm) Aortic Cusp Exc.1.15 (1.5-2.0cm) Mitral Valve MV E Nbsdyihx442.5cm/sMV A Jejixpiq61.9cm/sE/A ratio1.8 TDI E/Lateral E'0.0E/Medial E'0.0 Tricuspid Valve TR Peak Vvinplbo482ru/sTR Peak Gr.[id number] LEFT VENTRICLE The left ventricle is normal size. There is mild concentric left ventricular hypertrophy. Left ventricle systolic function is normal. The Ejection Fraction is 50-55%. There is normal LV segmental wall motion. Tissue Doppler imaging reveals abnormal left ventricular diastolic dysfunction. RIGHT VENTRICLE The right ventricle is normal size. There is normal right ventricular wall thickness. The right ventricular systolic function is normal. ATRIA The left atrium is mildly dilated. The right atrium size is normal. The interatrial septum is intact with no evidence for an atrial septal defect. AORTIC VALVE The aortic valve is normal in structure. No aortic regurgitation is present. There is no aortic valvular stenosis. MITRAL VALVE The mitral valve is normal in structure. There is no evidence of mitral valve prolapse. There is no mitral valve stenosis. Mitral regurgitation is mild. TRICUSPID VALVE The tricuspid valve is normal in structure. There is mild tricuspid regurgitation. Right ventricular systolic pressure is estimated at less than 30 mmHg. There is no pulmonary hypertension. PULMONIC VALVE The pulmonic valve is not well visualized. There is no pulmonic valvular regurgitation. GREAT VESSELS The aortic root is normal in size. PERICARDIAL EFFUSION There is no significant pericardial effusion. <Conclusion> Left ventricle systolic function is normal. The Ejection Fraction is 50-55%. Hypertensive heart disease. Diastolic dysfunction. No aortic regurgitation is present. Mitral regurgitation is mild. There is mild tricuspid regurgitation. There is no pulmonary hypertension. There is no pulmonic valvular regurgitation.
--- NOTE | 2017-10-20 18:45 | CP.PCM.PN ---
Subjective - Date & Time of Evaluation Date of Evaluation: 10/20/17 Time of Evaluation: 10:00 - Subjective Subjective: clinically same Objective - Vital Signs/Intake and Output Vital Signs (last 24 hours): Temp Pulse Resp BP Pulse Ox 97.6 F 83 20 109/72 100 10/20/17 15:15 10/20/17 16:15 10/20/17 15:15 10/20/17 15:15 10/20/17 15:15 Intake and Output: 10/20/17 10/20/17 06:59 18:59 Intake Total 400 Output Total 400 250 Balance -400 150 - Medications Medications: Current Medications Albuterol/Ipratropium (Duoneb 3 Mg/0.5 Mg (3 Ml) Ud) 3 ml INH RQ6 PRN PRN Reason: Shortness of Breath Last Admin: 10/20/17 07:39 Dose: 3 ml Amitriptyline HCl (Elavil) 75 mg PO HS [facility] Last Admin: 10/19/17 22:08 Dose: 75 mg Amlodipine Besylate (Norvasc) 10 mg PO DAILY [facility] Last Admin: 10/20/17 12:31 Dose: 10 mg Aspirin (Ecotrin) 81 mg PO DAILY [facility] Last Admin: 10/20/17 09:48 Dose: 81 mg Budesonide (Pulmicort Respules) 0.5 mg INH RQ12 [facility] Last Admin: 10/20/17 07:39 Dose: 0.5 mg Carvedilol (Coreg) 25 mg PO BID [facility] Last Admin: 10/20/17 09:47 Dose: 25 mg Diltiazem HCl (Cardizem) 30 mg PO QID [facility] Last Admin: 10/20/17 17:40 Dose: 30 mg Enalapril Maleate (Vasotec) 10 mg PO DAILY [facility] Last Admin: 10/20/17 12:31 Dose: 10 mg Enoxaparin Sodium (Lovenox) 80 mg SC Q12 [facility] Last Admin: 10/20/17 09:45 Dose: 80 mg Gabapentin (Neurontin) 300 mg PO BID [facility] Last Admin: 10/20/17 17:40 Dose: 300 mg Glipizide (Glucotrol) 10 mg PO BID [facility] Last Admin: 10/20/17 17:40 Dose: 10 mg Insulin Aspart (Novolog) 0 unit SC ACHS [facility] PRN Reason: Protocol Last Admin: 10/20/17 17:40 Dose: 4 unit Insulin Glargine (Lantus) 10 unit SC DAILY [facility] Last Admin: 10/20/17 09:49 Dose: 10 u Metformin HCl (Glucophage) 1,000 mg PO BID [facility] Last Admin: 10/20/17 17:40 Dose: 1,000 mg Methylprednisolone (Solu-Medrol) 30 mg IVP Q12 [facility] Last Admin: 10/20/17 09:18 Dose: Not Given Metoprolol Tartrate (Lopressor) 5 mg IVP Q4H PRN PRN Reason: Systolic Blood Pressure Last Admin: 10/18/17 09:12 Dose: 5 mg Pantoprazole Sodium (Protonix Ec Tab) 40 mg PO DAILY [facility] Last Admin: 10/20/17 09:48 Dose: 40 mg Rosuvastatin Calcium (Crestor) 10 mg PO HS [facility] Last Admin: 10/19/17 22:08 Dose: 10 mg Temazepam (Restoril) 15 mg PO HS PRN PRN Reason: Insomnia Last Admin: 10/19/17 22:08 Dose: 15 mg Tolterodine Tartrate (Detrol) 2 mg PO BID [facility] Last Admin: 10/20/17 17:39 Dose: 2 mg - Labs Labs: 10/18/17 06:18 10/19/17 10:48 PT 10.3 SECONDS (9.7-12.2) 10/16/17 21:37 INR 0.9 10/16/17 21:37 APTT 20 SECONDS (21-34) L 10/16/17 21:37 - Constitutional Appears: Well - Head Exam Head Exam: ATRAUMATIC, NORMAL INSPECTION, NORMOCEPHALIC - Eye Exam Eye Exam: EOMI, Normal appearance, PERRL Pupil Exam: NORMAL ACCOMODATION, PERRL - ENT Exam ENT Exam: Mucous Membranes Moist, Normal Exam - Neck Exam Neck Exam: Full ROM, Normal Inspection. absent: Lymphadenopathy - Respiratory Exam Respiratory Exam: Decreased Breath Sounds - Cardiovascular Exam Cardiovascular Exam: REGULAR RHYTHM, +S1, +S2 - GI/Abdominal Exam GI & Abdominal Exam: Soft, Diminished Bowel Sounds - Rectal Exam Rectal Exam: Deferred
[2017-10-21] MEDS: Albuterol-Ipratrop 3 mg / 0.5 (3 ml) UD INH PRN (07:32)
[2017-10-21] MEDS: Budesonide 0.5 mg/2 ml Inhal Susp UD INH SCH ×2 (07:32→19:53)
[2017-10-21] MEDS: (Novolog) Insulin Aspart, Recombinant 100 u/ml 10 ml vial SC SCH ×4 (08:21→21:56)
[2017-10-21] MEDS: MethylPREDNISolone 40 mg Vial IVP SCH (09:13)
[2017-10-21] MEDS: Enoxaparin 80 mg Syringe SC SCH (09:13)
[2017-10-21] MEDS: (Lantus) Insulin Glargine, Recombinant SC SCH (09:15)
[2017-10-21] MEDS: Pantoprazole 40 mg EC Tab PO SCH (09:15)
--- NOTE | 2017-10-21 10:02 | CP.PCM.PN ---
Subjective - Date & Time of Evaluation Date of Evaluation: 10/21/17 Time of Evaluation: 07:00 - Subjective Subjective: PGY 2 medicine progress note for Dr. Racheal Wade: Patient was seen and examined at bedside this morning. No acute complaints at this time. She states he breathing is improving and cough is less severe. Objective - Vital Signs/Intake and Output Vital Signs (last 24 hours): Temp Pulse Resp BP Pulse Ox 97.5 F L 82 20 113/77 99 10/21/17 07:00 10/21/17 09:11 10/21/17 07:00 10/21/17 09:15 10/21/17 07:00 Intake and Output: 10/21/17 10/21/17 06:59 18:59 Output Total 400 Balance -400 - Medications Medications: Current Medications Albuterol/Ipratropium (Duoneb 3 Mg/0.5 Mg (3 Ml) Ud) 3 ml INH RQ6 PRN PRN Reason: Shortness of Breath Last Admin: 10/21/17 07:32 Dose: 3 ml Amitriptyline HCl (Elavil) 75 mg PO HS [facility] Last Admin: 10/20/17 21:49 Dose: 75 mg Amlodipine Besylate (Norvasc) 10 mg PO DAILY [facility] Last Admin: 10/21/17 09:14 Dose: 10 mg Aspirin (Ecotrin) 81 mg PO DAILY [facility] Last Admin: 10/21/17 09:15 Dose: 81 mg Budesonide (Pulmicort Respules) 0.5 mg INH RQ12 [facility] Last Admin: 10/21/17 07:32 Dose: 0.5 mg Carvedilol (Coreg) 25 mg PO BID [facility] Last Admin: 10/21/17 09:15 Dose: 25 mg Diltiazem HCl (Cardizem) 30 mg PO QID [facility] Last Admin: 10/21/17 09:14 Dose: 30 mg Enalapril Maleate (Vasotec) 10 mg PO DAILY [facility] Last Admin: 10/21/17 09:14 Dose: 10 mg Enoxaparin Sodium (Lovenox) 80 mg SC Q12 [facility] Last Admin: 10/21/17 09:13 Dose: 80 mg Gabapentin (Neurontin) 300 mg PO BID [facility] Last Admin: 10/21/17 09:14 Dose: 300 mg Glipizide (Glucotrol) 10 mg PO BID [facility] Last Admin: 10/21/17 09:15 Dose: 10 mg Insulin Aspart (Novolog) 0 unit SC ACHS [facility] PRN Reason: Protocol Last Admin: 10/21/17 08:21 Dose: 4 unit Insulin Glargine (Lantus) 10 unit SC DAILY [facility] Last Admin: 10/21/17 09:15 Dose: 10 u Metformin HCl (Glucophage) 1,000 mg PO BID [facility] Last Admin: 10/21/17 09:15 Dose: 1,000 mg Methylprednisolone (Solu-Medrol) 30 mg IVP Q12 [facility] Last Admin: 10/21/17 09:13 Dose: 30 mg Metoprolol Tartrate (Lopressor) 5 mg IVP Q4H PRN PRN Reason: Systolic Blood Pressure Last Admin: 10/18/17 09:12 Dose: 5 mg Pantoprazole Sodium (Protonix Ec Tab) 40 mg PO DAILY [facility] Last Admin: 10/21/17 09:15 Dose: 40 mg Rosuvastatin Calcium (Crestor) 10 mg PO HS [facility] Last Admin: 10/20/17 21:50 Dose: 10 mg Temazepam (Restoril) 15 mg PO HS PRN PRN Reason: Insomnia Last Admin: 10/20/17 21:51 Dose: 15 mg Tolterodine Tartrate (Detrol) 2 mg PO BID [facility] Last Admin: 10/21/17 09:14 Dose: 2 mg - Labs Labs: 10/18/17 06:18 10/19/17 10:48 PT 10.3 SECONDS (9.7-12.2) 10/16/17 21:37 INR 0.9 10/16/17 21:37 APTT 20 SECONDS (21-34) L 10/16/17 21:37 - Constitutional Appears: Non-toxic, No Acute Distress - Head Exam Head Exam: ATRAUMATIC, NORMAL INSPECTION - Eye Exam Eye Exam: EOMI Pupil Exam: NORMAL ACCOMODATION - ENT Exam ENT Exam: Mucous Membranes Moist - Respiratory Exam Respiratory Exam: Clear to Ausculation Bilateral, NORMAL BREATHING PATTERN - Cardiovascular Exam Cardiovascular Exam: REGULAR RHYTHM - GI/Abdominal Exam GI & Abdominal Exam: Soft, Normal Bowel Sounds. absent: Distended, Firm, Guarding, Tenderness Assessment and Plan - Assessment and Plan (Free Text) Assessment: Atrial fibrillation Rate controlled today Duonebs prn SOB Cardizem 30mg PO QID Lovenox [address] Villarreal cardiology consulted - help appreciated wants to start Eliquis 5mg PO Daily (pharmacy will call provider to verify due to normal BID dosing of this drug). If elliquis is started then Lovenox can be discontinued. Per Dr. Racheal Wade we will give eliquis 2.5mg PO BID and the lovenox will be discontinued after the first dose Diastolic dysfunction Echo report shows EF 50-55% with hypertensive heart disease and diastolic dysfunction Coreg 25mg PO BID Cardiology on board Hx Lacunar infarct ASA 81mg PO daily Crestor 2.5 mg PO HS Patient has LE weakness on admission - now resolved Dr. Sorto/Dr. Bhatt, neurology consulted, help appreciated Tolterodine 2mg PO BID [facility] Brain MRI - negative, chronic changes Cervical MRI - moderate to severe R vertibral foraminal narrowing, spinal stenosis Head/neck CTA - no occlusion seen, atherosclerotic changes seen Heat CT - old lacunar infarct no acute changes Carotid dopplers - negative f/u thoracic and lumbar spine MRI Hypertension Norvasc 10mg PO daily Coreg 25mg PO BID Enalapril 10mg PO daily Lopressor 5mg IVP prn elevated SBP DM ISS Accuchekcs hypoglycemia protocol Metformin 1000 mg PO BID Glipizide 10mg PO BID Shortness of breath was likely secondary to rapid Afib now improved Duonebs prn - d/c due to tachycardia Pulmicort RQ12 Will taper steroids Dr. Ayala consulted help appreciated Hyperlipidemia Well controlled Crestor 2.5 mg PO HS Depression Elavil 75mg PO HS Insomnia Restoril 15mg PO HS prn Prophylaxis on Lovenox Heart healthy diet All management per Dr. Racheal Wade
--- NOTE | 2017-10-21 10:33 | CP.PCM.PN ---
Subjective - Date & Time of Evaluation Date of Evaluation: 10/21/17 Time of Evaluation: 10:30 - Subjective Subjective: PT WITH LESS COUGH. ROS; OTHERWISE NEG. Objective - Vital Signs/Intake and Output Vital Signs (last 24 hours): Temp Pulse Resp BP Pulse Ox 97.5 F L 82 20 113/77 99 10/21/17 07:00 10/21/17 09:11 10/21/17 07:00 10/21/17 09:15 10/21/17 07:00 Intake and Output: 10/21/17 10/21/17 06:59 18:59 Output Total 400 Balance -400 - Medications Medications: Current Medications Albuterol/Ipratropium (Duoneb 3 Mg/0.5 Mg (3 Ml) Ud) 3 ml INH RQ6 PRN PRN Reason: Shortness of Breath Last Admin: 10/21/17 07:32 Dose: 3 ml Amitriptyline HCl (Elavil) 75 mg PO HS [facility] Last Admin: 10/20/17 21:49 Dose: 75 mg Amlodipine Besylate (Norvasc) 10 mg PO DAILY [facility] Last Admin: 10/21/17 09:14 Dose: 10 mg Aspirin (Ecotrin) 81 mg PO DAILY [facility] Last Admin: 10/21/17 09:15 Dose: 81 mg Budesonide (Pulmicort Respules) 0.5 mg INH RQ12 [facility] Last Admin: 10/21/17 07:32 Dose: 0.5 mg Carvedilol (Coreg) 25 mg PO BID [facility] Last Admin: 10/21/17 09:15 Dose: 25 mg Diltiazem HCl (Cardizem) 30 mg PO QID [facility] Last Admin: 10/21/17 09:14 Dose: 30 mg Enalapril Maleate (Vasotec) 10 mg PO DAILY [facility] Last Admin: 10/21/17 09:14 Dose: 10 mg Enoxaparin Sodium (Lovenox) 80 mg SC Q12 [facility] Last Admin: 10/21/17 09:13 Dose: 80 mg Gabapentin (Neurontin) 300 mg PO BID [facility] Last Admin: 10/21/17 09:14 Dose: 300 mg Glipizide (Glucotrol) 10 mg PO BID [facility] Last Admin: 10/21/17 09:15 Dose: 10 mg Insulin Aspart (Novolog) 0 unit SC ACHS [facility] PRN Reason: Protocol Last Admin: 10/21/17 08:21 Dose: 4 unit Insulin Glargine (Lantus) 10 unit SC DAILY [facility] Last Admin: 10/21/17 09:15 Dose: 10 u Metformin HCl (Glucophage) 1,000 mg PO BID [facility] Last Admin: 10/21/17 09:15 Dose: 1,000 mg Methylprednisolone (Solu-Medrol) 30 mg IVP Q12 [facility] Last Admin: 10/21/17 09:13 Dose: 30 mg Metoprolol Tartrate (Lopressor) 5 mg IVP Q4H PRN PRN Reason: Systolic Blood Pressure Last Admin: 10/18/17 09:12 Dose: 5 mg Pantoprazole Sodium (Protonix Ec Tab) 40 mg PO DAILY [facility] Last Admin: 10/21/17 09:15 Dose: 40 mg Rosuvastatin Calcium (Crestor) 10 mg PO HS [facility] Last Admin: 10/20/17 21:50 Dose: 10 mg Rosuvastatin Calcium (Crestor) 2.5 mg PO HS [facility] Temazepam (Restoril) 15 mg PO HS PRN PRN Reason: Insomnia Last Admin: 10/20/17 21:51 Dose: 15 mg Tolterodine Tartrate (Detrol) 2 mg PO BID [facility] Last Admin: 10/21/17 09:14 Dose: 2 mg - Labs Labs: 10/18/17 06:18 10/19/17 10:48 PT 10.3 SECONDS (9.7-12.2) 10/16/17 21:37 INR 0.9 10/16/17 21:37 APTT 20 SECONDS (21-34) L 10/16/17 21:37 - Constitutional Appears: No Acute Distress - Head Exam Head Exam: ATRAUMATIC, NORMOCEPHALIC - Eye Exam Eye Exam: EOMI, Normal appearance - ENT Exam ENT Exam: Mucous Membranes Moist - Neck Exam Neck Exam: Normal Inspection. absent: Tenderness - Respiratory Exam Respiratory Exam: Decreased Breath Sounds. absent: Respiratory Distress - Cardiovascular Exam Cardiovascular Exam: Tachycardia, RRR, +S1, +S2 - GI/Abdominal Exam GI & Abdominal Exam: Soft. absent: Tenderness - Rectal Exam Rectal Exam: Deferred - Extremities Exam Extremities Exam: absent: Calf Tenderness, Pedal Edema - Back Exam Back Exam: absent: CVA tenderness (L), CVA tenderness (R) - Neurological Exam Neurological Exam: Alert, Awake, CN II-XII Intact, Oriented x3 - Psychiatric Exam Psychiatric exam: Normal Mood - Skin Skin Exam: absent: Rash Assessment and Plan (1) Hypertension Status: Acute (2) Diabetes Status: Acute (3) Osteoarthritis Status: Acute (4) Obesity Status: Acute (5) Cough Status: Acute (6) CVA (cerebral vascular accident) Status: Acute (7) New onset a-fib Status: Acute - Assessment and Plan (Free Text) Assessment: RESP STATUS NO SIG CHANGE., CONT STEROID TAPER, CONT PULMICORT. D/C NEB BD DUE TO TACHYCARDIA., CXR REVIEWED., MONITOR O2 SAT., HR CONTROL PER CARDIO., FOR MRI. PROG GUARDED., DISCUSSED WITH STAFF.
--- NOTE | 2017-10-21 12:01 | CP.PCM.PN ---
Subjective - Date & Time of Evaluation Date of Evaluation: 10/21/17 Time of Evaluation: 13:00 - Subjective Subjective: On physical therapy, heart rate controlled, started on none Coumadin oral anticoagulation noag Objective - Vital Signs/Intake and Output Vital Signs (last 24 hours): Temp Pulse Resp BP Pulse Ox 97.5 F L 82 20 113/77 99 10/21/17 07:00 10/21/17 09:11 10/21/17 07:00 10/21/17 09:15 10/21/17 07:00 Intake and Output: 10/21/17 10/21/17 06:59 18:59 Output Total 400 Balance -400 - Medications Medications: Current Medications Amitriptyline HCl (Elavil) 75 mg PO HS [facility] Last Admin: 10/20/17 21:49 Dose: 75 mg Amlodipine Besylate (Norvasc) 10 mg PO DAILY [facility] Last Admin: 10/21/17 09:14 Dose: 10 mg Aspirin (Ecotrin) 81 mg PO DAILY [facility] Last Admin: 10/21/17 09:15 Dose: 81 mg Budesonide (Pulmicort Respules) 0.5 mg INH RQ12 [facility] Last Admin: 10/21/17 07:32 Dose: 0.5 mg Carvedilol (Coreg) 25 mg PO BID [facility] Last Admin: 10/21/17 09:15 Dose: 25 mg Diltiazem HCl (Cardizem) 30 mg PO QID [facility] Last Admin: 10/21/17 09:14 Dose: 30 mg Enalapril Maleate (Vasotec) 10 mg PO DAILY [facility] Last Admin: 10/21/17 09:14 Dose: 10 mg Enoxaparin Sodium (Lovenox) 80 mg SC Q12 [facility] Last Admin: 10/21/17 09:13 Dose: 80 mg Gabapentin (Neurontin) 300 mg PO BID [facility] Last Admin: 10/21/17 09:14 Dose: 300 mg Glipizide (Glucotrol) 10 mg PO BID [facility] Last Admin: 10/21/17 09:15 Dose: 10 mg Insulin Aspart (Novolog) 0 unit SC ACHS [facility] PRN Reason: Protocol Last Admin: 10/21/17 11:58 Dose: 5 unit Insulin Glargine (Lantus) 10 unit SC DAILY [facility] Last Admin: 10/21/17 09:15 Dose: 10 u Metformin HCl (Glucophage) 1,000 mg PO BID [facility] Last Admin: 10/21/17 09:15 Dose: 1,000 mg Metoprolol Tartrate (Lopressor) 5 mg IVP Q4H PRN PRN Reason: Systolic Blood Pressure Last Admin: 10/18/17 09:12 Dose: 5 mg Pantoprazole Sodium (Protonix Ec Tab) 40 mg PO DAILY [facility] Last Admin: 10/21/17 09:15 Dose: 40 mg Rosuvastatin Calcium (Crestor) 10 mg PO HS [facility] Last Admin: 10/20/17 21:50 Dose: 10 mg Rosuvastatin Calcium (Crestor) 2.5 mg PO HS [facility] Temazepam (Restoril) 15 mg PO HS PRN PRN Reason: Insomnia Last Admin: 10/20/17 21:51 Dose: 15 mg Tolterodine Tartrate (Detrol) 2 mg PO BID [facility] Last Admin: 10/21/17 09:14 Dose: 2 mg - Labs Labs: 10/18/17 06:18 10/19/17 10:48 PT 10.3 SECONDS (9.7-12.2) 10/16/17 21:37 INR 0.9 10/16/17 21:37 APTT 20 SECONDS (21-34) L 10/16/17 21:37 - Constitutional Appears: Non-toxic - Head Exam Head Exam: ATRAUMATIC - Eye Exam Eye Exam: EOMI - ENT Exam ENT Exam: Mucous Membranes Moist - Neck Exam Neck Exam: absent: Lymphadenopathy, Thyromegaly - Respiratory Exam Respiratory Exam: Clear to Ausculation Bilateral. absent: Rales - Cardiovascular Exam Cardiovascular Exam: Irregular Rhythm, Murmur - GI/Abdominal Exam GI & Abdominal Exam: Normal Bowel Sounds. absent: Organomegaly - Rectal Exam Rectal Exam: Deferred - Extremities Exam Extremities Exam: Normal Capillary Refill. absent: Calf Tenderness - Neurological Exam Neurological Exam: Alert, Oriented x3 - Psychiatric Exam Psychiatric exam: Normal Affect - Skin Skin Exam: Dry Assessment and Plan (1) CVA (cerebral vascular accident) Status: Acute (2) New onset a-fib Status: Acute
--- NOTE | 2017-10-21 12:10 | MRI ---
PROCEDURE: MR LUMBAR SPINE WITHOUT CONTRAST HISTORY: left leg weakness COMPARISON: None available. TECHNIQUE: Multiecho multiplanar sequences were performed through the lumbar spine without the use of intravenous contrast. FINDINGS: Normal lumbar curvature is appreciate without fracture or spondylolisthesis. Overall marrow signal intensity is normal throughout all sequences. Moderate disc desiccation is appreciated throughout the intervertebral discs which nevertheless remain normal in overall height. Conus medullaris is appears unremarkable terminating at T12 mid vertebral body level (confirmed on separate thoracic spine MRI also performed 10/21/2017). The L5 vertebral body is transitional, sacralized. Prevertebral paraspinal soft tissues appear unremarkable. T12-L1: No disc herniation, spinal canal stenosis or neural foraminal narrowing. L1-2: No disc herniation, spinal canal stenosis or neural foraminal narrowing. Mild facet joint degenerative changes are identified. L2-3: No disc herniation, spinal canal stenosis or neural foraminal narrowing. [id number] facet joint degenerative changes encroaches the bilateral lateral recesses. L3-4: No disc herniation. A circumference dural disc bulge is appreciated which is slightly irregular combining with moderate facet joint degenerative changes resulting in mild central canal stenosis but no significant neural foraminal stenosis. Limited right foraminal disc protrusion is not completely excluded. L4-5: There is a right lateral/foraminal disc herniation causing mild proximal right neural foraminal stenosis and mild right leonela canal stenosis, displacing descending right and sided nerve roots posteriorly. No significant left leonela canal or neural foraminal stenosis. Moderate facet joint arthropathy is appreciated bilaterally. L5-S1: No disc herniation, spinal canal stenosis or neural foraminal narrowing. OTHER FINDINGS: Small right renal cyst suggested. IMPRESSION: 1. At L4-5, right lateral foraminal disc herniation causes mild proximal right neural foraminal stenosis and mild right leonela canal stenosis as well. Note, L5 is transitional, appearing sacralized somewhat. 2. An irregular generalized disc bulge at L3-4 combines with facet joint degenerative changes resulting in a mild central canal stenosis. Limited right foraminal disc protrusion is not completely excluded.
--- NOTE | 2017-10-21 12:55 | MRI ---
PROCEDURE: MR THORACIC SPINE WITHOUT CONTRAST HISTORY: left leg weakness COMPARISON: None available. TECHNIQUE: Multiecho multiplanar sequences were performed through the thoracic spine without the use of intravenous contrast. FINDINGS: ALIGNMENT: Normal thoracic spinal alignment. Normal thoracic kyphosis. VERTEBRA: Vertebral body heights are preserved. No spondylolisthesis identified. A benign hemangioma is appreciated at the posterior margins of the T7 vertebral body bright on T1 and T2 weighting but suppressing on sagittal STIR imaging. No suspicious Marrow signal is appreciate throughout the vertebral bodies with endplates intact throughout. Diffuse disc desiccation is moderate to advanced throughout the thoracic spine. MARROW: As above. PARASPINAL SOFT TISSUES: Prevertebral and paraspinal soft tissues appear diffusely unremarkable. CORD: Unremarkable thoracic cord. No volume loss, signal abnormality or syrinx. The conus medullaris appears normal, terminating at the T12 vertebral body level. DISCS: No disc herniation, spinal canal stenosis, or neuroforaminal narrowing. OTHER FINDINGS: Incidental right renal cyst suspected. IMPRESSION: No fracture, spondylolisthesis or spinal stenosis appreciable. No disc herniation evident throughout. Normal thoracic spinal cord signal intensity appreciated throughout. Benign hemangioma T7 vertebral body.
--- NOTE | 2017-10-21 13:16 | CP.PCM.PN ---
Subjective - Date & Time of Evaluation Date of Evaluation: 10/21/17 Time of Evaluation: 09:40 - Subjective Subjective: clinically same Objective - Vital Signs/Intake and Output Vital Signs (last 24 hours): Temp Pulse Resp BP Pulse Ox 97.5 F L 110 H 20 113/77 99 10/21/17 07:00 10/21/17 12:00 10/21/17 07:00 10/21/17 09:15 10/21/17 07:00 Intake and Output: 10/21/17 10/21/17 06:59 18:59 Output Total 400 Balance -400 - Medications Medications: Current Medications Amitriptyline HCl (Elavil) 75 mg PO HS [facility] Last Admin: 10/20/17 21:49 Dose: 75 mg Amlodipine Besylate (Norvasc) 10 mg PO DAILY [facility] Last Admin: 10/21/17 09:14 Dose: 10 mg Apixaban (Eliquis) 5 mg PO BID [facility] Aspirin (Ecotrin) 81 mg PO DAILY [facility] Last Admin: 10/21/17 09:15 Dose: 81 mg Budesonide (Pulmicort Respules) 0.5 mg INH RQ12 [facility] Last Admin: 10/21/17 07:32 Dose: 0.5 mg Carvedilol (Coreg) 25 mg PO BID [facility] Last Admin: 10/21/17 09:15 Dose: 25 mg Diltiazem HCl (Cardizem) 30 mg PO QID [facility] Last Admin: 10/21/17 09:14 Dose: 30 mg Enalapril Maleate (Vasotec) 10 mg PO DAILY [facility] Last Admin: 10/21/17 09:14 Dose: 10 mg Enoxaparin Sodium (Lovenox) 80 mg SC Q12 [facility] Last Admin: 10/21/17 09:13 Dose: 80 mg Gabapentin (Neurontin) 300 mg PO BID [facility] Last Admin: 10/21/17 09:14 Dose: 300 mg Glipizide (Glucotrol) 10 mg PO BID [facility] Last Admin: 10/21/17 09:15 Dose: 10 mg Insulin Aspart (Novolog) 0 unit SC ACHS [facility] PRN Reason: Protocol Last Admin: 10/21/17 11:58 Dose: 5 unit Insulin Glargine (Lantus) 10 unit SC DAILY [facility] Last Admin: 10/21/17 09:15 Dose: 10 u Metformin HCl (Glucophage) 1,000 mg PO BID [facility] Last Admin: 10/21/17 09:15 Dose: 1,000 mg Metoprolol Tartrate (Lopressor) 5 mg IVP Q4H PRN PRN Reason: Systolic Blood Pressure Last Admin: 10/18/17 09:12 Dose: 5 mg Pantoprazole Sodium (Protonix Ec Tab) 40 mg PO DAILY [facility] Last Admin: 10/21/17 09:15 Dose: 40 mg Rosuvastatin Calcium (Crestor) 10 mg PO HS [facility] Last Admin: 10/20/17 21:50 Dose: 10 mg Rosuvastatin Calcium (Crestor) 2.5 mg PO HS [facility] Temazepam (Restoril) 15 mg PO HS PRN PRN Reason: Insomnia Last Admin: 10/20/17 21:51 Dose: 15 mg Tolterodine Tartrate (Detrol) 2 mg PO BID [facility] Last Admin: 10/21/17 09:14 Dose: 2 mg - Labs Labs: 10/18/17 06:18 10/19/17 10:48 PT 10.3 SECONDS (9.7-12.2) 10/16/17 21:37 INR 0.9 10/16/17 21:37 APTT 20 SECONDS (21-34) L 10/16/17 21:37 - Constitutional Appears: Well - Head Exam Head Exam: ATRAUMATIC, NORMAL INSPECTION, NORMOCEPHALIC - Eye Exam Eye Exam: EOMI, Normal appearance, PERRL Pupil Exam: NORMAL ACCOMODATION, PERRL - ENT Exam ENT Exam: Mucous Membranes Moist, Normal Exam - Neck Exam Neck Exam: Full ROM, Normal Inspection. absent: Lymphadenopathy - Respiratory Exam Respiratory Exam: Decreased Breath Sounds - Cardiovascular Exam Cardiovascular Exam: REGULAR RHYTHM, +S1, +S2 - GI/Abdominal Exam GI & Abdominal Exam: Soft, Diminished Bowel Sounds - Rectal Exam Rectal Exam: Deferred
[2017-10-21 13:36] LABS: HEMOGLOBIN 10.7 g/dL (11.0-16.0); LYMPH # 0.8 K/uL (1.0-4.3); LYMPH % 7.8 % (20.0-40.0); MEAN CELL VOLUME 83.8 fL (81.0-99.0); MEAN CORPUSCULAR HEMOGLOBIN 27.9 pg (27.0-31.0); MEAN CORPUSCULAR HGB CONC 33.2 g/dL (33.0-37.0); MEAN PLATELET VOLUME 7.9 fL (7.2-11.7); MONO # 0.3 K/uL (0.0-0.8); MONO % 2.7 % (0.0-10.0); NEUT # 9.3 K/uL (1.8-7.0); NEUT % 89.5 % (50.0-75.0); NRBC % 0.1 % (0.0-2.0); PLATELET COUNT 520 K/uL (130-400); RBC 3.84 Mil/uL (3.80-5.20); RED CELL DISTRIBUTION WIDTH 14.3 % (11.5-14.5); WHITE BLOOD COUNT 10.4 K/uL (4.8-10.8)
[2017-10-21 13:59] LABS: LYMPHOCYTE 8 % (20-40); MONOCYTE 2 % (0-10); NEUTROPHIL 90 % (50-75); NUCLEATED RED BLOOD CELL 2 % (0-0); TOTAL CELLS COUNTED 100
[2017-10-21 14:00] LABS: ALB/GLOB RATIO 1.1 (1.0-2.1); ALBUMIN 3.4 g/dL (3.5-5.0); ALT/SGPT 33 U/L (9-52); AST/SGOT 27 U/L (14-36); BLOOD UREA NITROGEN 38 mg/dL (7-17); CALCIUM 8.9 mg/dl (8.6-10.4); GFR AFRICAN-AMERICAN > 60; GFR NON-AFRICAN AMERICAN 55
[2017-10-21 14:00] LABS: ANISOCYTOSIS SLIGHT; PLATELET ESTIMATE INCREASED (NORMAL); POIKILOCYTOSIS SLIGHT
[2017-10-21 14:01] LABS: BURR CELLS SLIGHT; HYPOCHROMIC SLIGHT; OVALOCYTES SLIGHT; TARGET CELLS SLIGHT
[2017-10-21] MEDS ORDERED: (Novolog) Insulin Aspart, Recombinant 100 u/ml 10 ml vial SC STA (14:19)
[2017-10-21] MEDS: Rosuvastatin Calcium 2.5 mg Tab PO SCH (21:14)
[2017-10-22 06:12] LABS: BASO % 0.1 % (0.0-2.0); HEMOGLOBIN 10.3 g/dL (11.0-16.0); LYMPH # 1.1 K/uL (1.0-4.3); MEAN CELL VOLUME 82.6 fL (81.0-99.0); MEAN CORPUSCULAR HEMOGLOBIN 28.2 pg (27.0-31.0); MEAN CORPUSCULAR HGB CONC 34.1 g/dL (33.0-37.0); MEAN PLATELET VOLUME 7.6 fL (7.2-11.7); MONO # 0.5 K/uL (0.0-0.8); MONO % 5.1 % (0.0-10.0); NEUT # 8.5 K/uL (1.8-7.0); NEUT % 83.8 % (50.0-75.0); NRBC % 0.2 % (0.0-2.0); RBC 3.67 Mil/uL (3.80-5.20); RED CELL DISTRIBUTION WIDTH 14.6 % (11.5-14.5); WHITE BLOOD COUNT 10.2 K/uL (4.8-10.8)
[2017-10-22 06:35] LABS: ALT/SGPT 26 U/L (9-52); AST/SGOT 23 U/L (14-36); BLOOD UREA NITROGEN 34 mg/dL (7-17); CALCIUM 8.4 mg/dl (8.6-10.4); GFR AFRICAN-AMERICAN > 60; GFR NON-AFRICAN AMERICAN 55
--- NOTE | 2017-10-22 07:40 | CP.PCM.PN ---
Subjective - Date & Time of Evaluation Date of Evaluation: 10/22/17 Time of Evaluation: 07:40 - Subjective Subjective: Ms. Coombs was seen and examined at the bedside. She is alert, oriented in all spheres.She denies any headache, dizziness, lightheadedness, complains of not able to get enough sleep. She is able to follow simple commands.She is able to do some of her ADL such as such as repositioning herself in bed. MRI of the brain ( 10/21/2017) did not show any acute intracranial findings. 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 MRI of the thoracic is unremarkable. MRI of the lumbar showed L4-5 showed lateral foraminal disc herniation causes mild proximal right neural foraminal stenosis and mild right leonela-canal stenosis as well. L5 appears with sacralized somewhat. There ius an irregular generalized disc bulge at L3-4 combines with facet joint degenerative changes resulting in a mild central canal stenosis. There was no untoward events overnight. Objective - Vital Signs/Intake and Output Vital Signs (last 24 hours): Temp Pulse Resp BP Pulse Ox 97.9 F 87 20 120/72 97 10/21/17 23:05 10/22/17 00:00 10/21/17 23:05 10/21/17 23:05 10/21/17 23:05 Intake and Output: 10/22/17 10/22/17 06:59 18:59 Intake Total 400 Output Total 50 Balance 350 - Medications Medications: Current Medications Amitriptyline HCl (Elavil) 75 mg PO HS [facility] Last Admin: 10/21/17 21:14 Dose: 75 mg Amlodipine Besylate (Norvasc) 10 mg PO DAILY [facility] Last Admin: 10/21/17 09:14 Dose: 10 mg Apixaban (Eliquis) 2.5 mg PO BID [facility] Last Admin: 10/21/17 17:29 Dose: 2.5 mg Aspirin (Ecotrin) 81 mg PO DAILY [facility] Last Admin: 10/21/17 09:15 Dose: 81 mg Budesonide (Pulmicort Respules) 0.5 mg INH RQ12 [facility] Last Admin: 10/21/17 19:53 Dose: 0.5 mg Carvedilol (Coreg) 25 mg PO BID [facility] Last Admin: 10/21/17 17:29 Dose: 25 mg Diltiazem HCl (Cardizem) 30 mg PO QID [facility] Last Admin: 10/21/17 21:14 Dose: 30 mg Enalapril Maleate (Vasotec) 10 mg PO DAILY [facility] Last Admin: 10/21/17 09:14 Dose: 10 mg Gabapentin (Neurontin) 300 mg PO BID [facility] Last Admin: 10/21/17 17:29 Dose: 300 mg Glipizide (Glucotrol) 10 mg PO BID [facility] Last Admin: 10/21/17 17:29 Dose: 10 mg Insulin Aspart (Novolog) 0 unit SC [facility] PRN Reason: Protocol Last Admin: 10/21/17 21:56 Dose: Not Given Insulin Glargine (Lantus) 10 unit SC DAILY [facility] Last Admin: 10/21/17 09:15 Dose: 10 u Metformin HCl (Glucophage) 1,000 mg PO BID [facility] Last Admin: 10/21/17 17:29 Dose: 1,000 mg Metoprolol Tartrate (Lopressor) 5 mg IVP Q4H PRN PRN Reason: Systolic Blood Pressure Last Admin: 10/18/17 09:12 Dose: 5 mg Pantoprazole Sodium (Protonix Ec Tab) 40 mg PO DAILY [facility] Last Admin: 10/21/17 09:15 Dose: 40 mg Rosuvastatin Calcium (Crestor) 10 mg PO HS [facility] Last Admin: 10/21/17 21:14 Dose: 10 mg Rosuvastatin Calcium (Crestor) 2.5 mg PO HS [facility] Last Admin: 10/21/17 21:14 Dose: 2.5 mg Temazepam (Restoril) 15 mg PO HS PRN PRN Reason: Insomnia Last Admin: 10/21/17 21:18 Dose: 15 mg Tolterodine Tartrate (Detrol) 2 mg PO BID [facility] Last Admin: 10/21/17 17:30 Dose: 2 mg - Labs Labs: 10/22/17 06:05 10/22/17 06:05 PT 10.3 SECONDS (9.7-12.2) 10/16/17 21:37 INR 0.9 10/16/17 21:37 APTT 20 SECONDS (21-34) L 10/16/17 21:37 - Constitutional Appears: No Acute Distress - Head Exam Head Exam: NORMAL INSPECTION - Neurological Exam Neurological Exam: Alert, Awake, Oriented x3 Neuro motor strength exam: Left Upper Extremity: 5, Right Upper Extremity: 5, Left Lower Extremity: 3, Right Lower Extremity: 4 Additional comments: Neurological unchanged from previous examination. Assessment and Plan (1) Lacunar infarction Assessment & Plan: Case discussed with Dr. Sorto, continue all current medical, physical, and occupational therapies. Recommend glycemic control. Status: Acute
[2017-10-22] MEDS: Budesonide 0.5 mg/2 ml Inhal Susp UD INH SCH ×2 (07:44→20:07)
[2017-10-22] MEDS: Albuterol-Ipratrop 3 mg / 0.5 (3 ml) UD INH PRN (07:44)
[2017-10-22] MEDS: (Novolog) Insulin Aspart, Recombinant 100 u/ml 10 ml vial SC SCH ×4 (08:15→21:26)
[2017-10-22] MEDS: Pantoprazole 40 mg EC Tab PO SCH (09:23)
[2017-10-22] MEDS: (Lantus) Insulin Glargine, Recombinant SC SCH (09:25)
--- NOTE | 2017-10-22 09:30 | CP.PCM.PN ---
Subjective - Date & Time of Evaluation Date of Evaluation: 10/22/17 Time of Evaluation: 09:25 - Subjective Subjective: PT ALERT, FEELS MUCH BETTER, MOVING BOTH LEGS., NO SOB . LESS COUGH +WHITE SPUTUM., ROS; OTHERWISE NEG. Objective - Vital Signs/Intake and Output Vital Signs (last 24 hours): Temp Pulse Resp BP Pulse Ox 97.9 F 67 20 123/69 99 10/22/17 07:00 10/22/17 09:22 10/22/17 07:00 10/22/17 09:22 10/22/17 07:00 Intake and Output: 10/22/17 10/22/17 06:59 18:59 Intake Total 400 Output Total 50 Balance 350 - Medications Medications: Current Medications Amitriptyline HCl (Elavil) 75 mg PO HS [facility] Last Admin: 10/21/17 21:14 Dose: 75 mg Amlodipine Besylate (Norvasc) 10 mg PO DAILY [facility] Last Admin: 10/21/17 09:14 Dose: 10 mg Apixaban (Eliquis) 2.5 mg PO BID [facility] Last Admin: 10/21/17 17:29 Dose: 2.5 mg Aspirin (Ecotrin) 81 mg PO DAILY [facility] Last Admin: 10/21/17 09:15 Dose: 81 mg Budesonide (Pulmicort Respules) 0.5 mg INH RQ12 [facility] Last Admin: 10/22/17 07:44 Dose: 0.5 mg Carvedilol (Coreg) 25 mg PO BID [facility] Last Admin: 10/21/17 17:29 Dose: 25 mg Diltiazem HCl (Cardizem) 30 mg PO QID [facility] Last Admin: 10/21/17 21:14 Dose: 30 mg Enalapril Maleate (Vasotec) 10 mg PO DAILY [facility] Last Admin: 10/21/17 09:14 Dose: 10 mg Gabapentin (Neurontin) 300 mg PO BID [facility] Last Admin: 10/21/17 17:29 Dose: 300 mg Glipizide (Glucotrol) 10 mg PO BID [facility] Last Admin: 10/21/17 17:29 Dose: 10 mg Insulin Aspart (Novolog) 0 unit SC [facility] PRN Reason: Protocol Last Admin: 10/22/17 08:15 Dose: 3 unit Insulin Glargine (Lantus) 10 unit SC DAILY [facility] Last Admin: 10/21/17 09:15 Dose: 10 u Metformin HCl (Glucophage) 1,000 mg PO BID [facility] Last Admin: 10/21/17 17:29 Dose: 1,000 mg Metoprolol Tartrate (Lopressor) 5 mg IVP Q4H PRN PRN Reason: Systolic Blood Pressure Last Admin: 10/18/17 09:12 Dose: 5 mg Pantoprazole Sodium (Protonix Ec Tab) 40 mg PO DAILY [facility] Last Admin: 10/21/17 09:15 Dose: 40 mg Rosuvastatin Calcium (Crestor) 10 mg PO HS [facility] Last Admin: 10/21/17 21:14 Dose: 10 mg Rosuvastatin Calcium (Crestor) 2.5 mg PO HS [facility] Last Admin: 10/21/17 21:14 Dose: 2.5 mg Temazepam (Restoril) 15 mg PO HS PRN PRN Reason: Insomnia Last Admin: 10/21/17 21:18 Dose: 15 mg Tolterodine Tartrate (Detrol) 2 mg PO BID [facility] Last Admin: 10/21/17 17:30 Dose: 2 mg - Labs Labs: 10/22/17 06:05 10/22/17 06:05 PT 10.3 SECONDS (9.7-12.2) 10/16/17 21:37 INR 0.9 10/16/17 21:37 APTT 20 SECONDS (21-34) L 10/16/17 21:37 - Constitutional Appears: No Acute Distress - Head Exam Head Exam: ATRAUMATIC, NORMOCEPHALIC - Eye Exam Eye Exam: EOMI, Normal appearance - ENT Exam ENT Exam: Mucous Membranes Moist - Neck Exam Neck Exam: absent: Tenderness - Respiratory Exam Respiratory Exam: Decreased Breath Sounds. absent: Accessory Muscle Use, Wheezes, Respiratory Distress - Cardiovascular Exam Cardiovascular Exam: RRR, +S1, +S2 - GI/Abdominal Exam GI & Abdominal Exam: Soft. absent: Tenderness - Rectal Exam Rectal Exam: Deferred - Extremities Exam Extremities Exam: absent: Calf Tenderness, Pedal Edema - Back Exam Back Exam: absent: CVA tenderness (L), CVA tenderness (R) - Neurological Exam Neurological Exam: Alert, Awake, CN II-XII Intact, Oriented x3 - Psychiatric Exam Psychiatric exam: Normal Mood - Skin Skin Exam: absent: Rash Assessment and Plan (1) Hypertension Status: Acute (2) Diabetes Status: Acute (3) Osteoarthritis Status: Acute (4) Obesity Status: Acute (5) Cough Status: Acute (6) CVA (cerebral vascular accident) Status: Acute (7) New onset a-fib Status: Acute - Assessment and Plan (Free Text) Assessment: RESP STATUS IMPROVING., TAPERED OFF STEROIDS., BRONCHOSPASM RESOLVING., OFF DUONEB DUE TO TACHY. CXR REVIEWED., ADEQ OXYGENATION., MRI RESULTS NOTED, PER NEURO. ON ELIQUIS PER CARDIO. PROG GUARDED., DISCUSSED WITH STAFF.
--- NOTE | 2017-10-22 10:19 | CP.PCM.PN ---
Subjective - Date & Time of Evaluation Date of Evaluation: 10/22/17 Time of Evaluation: 10:16 - Subjective Subjective: PGY2 progress note for Dr. Wade Pt seen and examined at bedside. No acute events overnight. Pt resting comfortably. Moving all 4 extremities without difficulty. Patient denies having any weakness, numbness, tingling in extremities. Patient denies having any CP, SOB, abd pain, N/V/D/C. Patient does complain of dysuria. Objective - Vital Signs/Intake and Output Vital Signs (last 24 hours): Temp Pulse Resp BP Pulse Ox 97.9 F 67 20 123/69 99 10/22/17 07:00 10/22/17 09:22 10/22/17 07:00 10/22/17 09:22 10/22/17 07:00 Intake and Output: 10/22/17 10/22/17 06:59 18:59 Intake Total 400 Output Total 50 Balance 350 - Medications Medications: Current Medications Amitriptyline HCl (Elavil) 75 mg PO HS [facility] Last Admin: 10/21/17 21:14 Dose: 75 mg Amlodipine Besylate (Norvasc) 10 mg PO DAILY [facility] Last Admin: 10/22/17 09:24 Dose: 10 mg Apixaban (Eliquis) 2.5 mg PO BID [facility] Last Admin: 10/22/17 09:24 Dose: 2.5 mg Aspirin (Ecotrin) 81 mg PO DAILY [facility] Last Admin: 10/22/17 09:22 Dose: 81 mg Budesonide (Pulmicort Respules) 0.5 mg INH RQ12 [facility] Last Admin: 10/22/17 07:44 Dose: 0.5 mg Carvedilol (Coreg) 25 mg PO BID [facility] Last Admin: 10/22/17 09:22 Dose: 25 mg Diltiazem HCl (Cardizem) 30 mg PO QID [facility] Last Admin: 10/22/17 09:22 Dose: 30 mg Enalapril Maleate (Vasotec) 10 mg PO DAILY [facility] Last Admin: 10/22/17 09:22 Dose: 10 mg Gabapentin (Neurontin) 300 mg PO BID [facility] Last Admin: 10/22/17 09:22 Dose: 300 mg Glipizide (Glucotrol) 10 mg PO BID [facility] Last Admin: 10/22/17 09:22 Dose: 10 mg Insulin Aspart (Novolog) 0 unit SC [facility] PRN Reason: Protocol Last Admin: 10/22/17 08:15 Dose: 3 unit Insulin Glargine (Lantus) 10 unit SC DAILY [facility] Last Admin: 10/22/17 09:25 Dose: 10 u Metformin HCl (Glucophage) 1,000 mg PO BID [facility] Last Admin: 10/22/17 09:22 Dose: 1,000 mg Metoprolol Tartrate (Lopressor) 5 mg IVP Q4H PRN PRN Reason: Systolic Blood Pressure Last Admin: 10/18/17 09:12 Dose: 5 mg Pantoprazole Sodium (Protonix Ec Tab) 40 mg PO DAILY [facility] Last Admin: 10/22/17 09:23 Dose: 40 mg Rosuvastatin Calcium (Crestor) 10 mg PO HS [facility] Last Admin: 10/21/17 21:14 Dose: 10 mg Rosuvastatin Calcium (Crestor) 2.5 mg PO HS [facility] Last Admin: 10/21/17 21:14 Dose: 2.5 mg Temazepam (Restoril) 15 mg PO HS PRN PRN Reason: Insomnia Last Admin: 10/21/17 21:18 Dose: 15 mg Tolterodine Tartrate (Detrol) 2 mg PO BID [facility] Last Admin: 10/22/17 09:24 Dose: 2 mg - Labs Labs: 10/22/17 06:05 10/22/17 06:05 PT 10.3 SECONDS (9.7-12.2) 10/16/17 21:37 INR 0.9 10/16/17 21:37 APTT 20 SECONDS (21-34) L 10/16/17 21:37 - Constitutional Appears: Non-toxic, No Acute Distress - Head Exam Head Exam: ATRAUMATIC - Eye Exam Eye Exam: EOMI - ENT Exam ENT Exam: Mucous Membranes Moist - Respiratory Exam Respiratory Exam: Clear to Ausculation Bilateral. absent: Accessory Muscle Use , Rales, Rhonchi, Wheezes, Respiratory Distress - Cardiovascular Exam Cardiovascular Exam: Irregular Rhythm, +S1, +S2. absent: Tachycardia, Gallop, Rubs, Murmur - GI/Abdominal Exam GI & Abdominal Exam: Soft, Normal Bowel Sounds. absent: Distended, Firm, Guarding, Rigid, Tenderness, Organomegaly - Extremities Exam Extremities Exam: absent: Pedal Edema, Tenderness - Neurological Exam Neurological Exam: Alert, Awake, CN II-XII Intact, Oriented x3 Neuro motor strength exam: Left Upper Extremity: 5, Right Upper Extremity: 5, Left Lower Extremity: 5, Right Lower Extremity: 5 - Psychiatric Exam Psychiatric exam: Normal Affect, Normal Mood - Skin Skin Exam: Dry, Intact, Normal Color, Warm Assessment and Plan - Assessment and Plan (Free Text) Assessment: Atrial fibrillation Rate controlled today Cardizem 30mg PO QID Patient started on Eliquis 2.[address] Villarreal cardiology consulted. Cardiology recommended pt receive Eliquis 5 mg po qd. Per Dr. Racheal Wade, pt should receive Eliquis 2.5 mg po BID Diastolic dysfunction Echo report shows EF 50-55% with hypertensive heart disease and diastolic dysfunction Coreg 25mg PO BID Cardiology on board Hx Lacunar infarct ASA 81mg PO daily Crestor 2.5 mg PO HS Patient has LE weakness on admission - now resolved Dr. Sorto/Dr. Bhatt, neurology consulted, help appreciated Tolterodine 2mg PO BID [facility] Brain MRI - negative, chronic changes Cervical MRI - moderate to severe R vertibral foraminal narrowing, spinal stenosis Head/neck CTA - no occlusion seen, atherosclerotic changes seen Heat CT - old lacunar infarct no acute changes Carotid dopplers - negative Lumbar MRI showed L4-L5 right lateral disc herniation casuing proximal right neural foraminal stenosis and mild right leonela canal stenosis. Irregular generalized disc bulge L3-L4 combines with facet joint degerative changes resulting in mild canal stenosis. See full report Thoracic MRI was normal Hypertension Norvasc 10mg PO daily Coreg 25mg PO BID Enalapril 10mg PO daily Lopressor 5mg IVP prn elevated SBP DM ISS Accuchekcs hypoglycemia protocol Metformin 1000 mg PO BID Glipizide 10mg PO BID Lantus 10 units HS ISS medium dose Diabetic neuropathy Gabapentin Elavil Shortness of breath was likely secondary to rapid Afib now improved Duonebs prn - for SOB Pulmicort RQ12 Will taper steroids Dr. Ayala consulted help appreciated Hyperlipidemia Well controlled Crestor 2.5 mg PO HS Depression Elavil 75mg PO HS Insomnia Restoril 15mg PO HS prn Prophylaxis Eliquis Protonix Heart healthy diet PT/OT Case management consulted for placement All management per Dr. Racheal Wade
--- NOTE | 2017-10-22 12:59 | CP.PCM.PN ---
Subjective - Date & Time of Evaluation Date of Evaluation: 10/22/17 Time of Evaluation: 12:00 - Subjective Subjective: I was called by nursing, and the pharmacy. They did not like stage oral anticoagulation with once a day eliquis then second day to stop Lovenox and start twice a day eliquis. the resident was contacted and my order was switched despite my explanation. From the note of a Ms Luigi from nursing apparently she is the one that would not take my order and had to find somebody else to overturn my decision. I would leave the case to Ms. Meyers to continue HER medical management Objective - Vital Signs/Intake and Output Vital Signs (last 24 hours): Temp Pulse Resp BP Pulse Ox 97.9 F 67 20 123/69 99 10/22/17 07:00 10/22/17 09:22 10/22/17 07:00 10/22/17 09:22 10/22/17 07:00 Intake and Output: 10/22/17 10/22/17 06:59 18:59 Intake Total 400 Output Total 50 Balance 350 - Medications Medications: Current Medications Amitriptyline HCl (Elavil) 75 mg PO HS [facility] Last Admin: 10/21/17 21:14 Dose: 75 mg Amlodipine Besylate (Norvasc) 10 mg PO DAILY [facility] Last Admin: 10/22/17 09:24 Dose: 10 mg Apixaban (Eliquis) 2.5 mg PO BID [facility] Last Admin: 10/22/17 09:24 Dose: 2.5 mg Aspirin (Ecotrin) 81 mg PO DAILY [facility] Last Admin: 10/22/17 09:22 Dose: 81 mg Budesonide (Pulmicort Respules) 0.5 mg INH RQ12 [facility] Last Admin: 10/22/17 07:44 Dose: 0.5 mg Carvedilol (Coreg) 25 mg PO BID [facility] Last Admin: 10/22/17 09:22 Dose: 25 mg Diltiazem HCl (Cardizem) 30 mg PO QID [facility] Last Admin: 10/22/17 09:22 Dose: 30 mg Enalapril Maleate (Vasotec) 10 mg PO DAILY [facility] Last Admin: 10/22/17 09:22 Dose: 10 mg Gabapentin (Neurontin) 300 mg PO BID [facility] Last Admin: 10/22/17 09:22 Dose: 300 mg Glipizide (Glucotrol) 10 mg PO BID [facility] Last Admin: 10/22/17 09:22 Dose: 10 mg Insulin Aspart (Novolog) 0 unit SC ACHS [facility] PRN Reason: Protocol Last Admin: 10/22/17 12:02 Dose: 4 unit Insulin Glargine (Lantus) 10 unit SC DAILY [facility] Last Admin: 10/22/17 09:25 Dose: 10 u Metformin HCl (Glucophage) 1,000 mg PO BID [facility] Last Admin: 10/22/17 09:22 Dose: 1,000 mg Metoprolol Tartrate (Lopressor) 5 mg IVP Q4H PRN PRN Reason: Systolic Blood Pressure Last Admin: 10/18/17 09:12 Dose: 5 mg Pantoprazole Sodium (Protonix Ec Tab) 40 mg PO DAILY [facility] Last Admin: 10/22/17 09:23 Dose: 40 mg Rosuvastatin Calcium (Crestor) 10 mg PO HS [facility] Last Admin: 10/21/17 21:14 Dose: 10 mg Rosuvastatin Calcium (Crestor) 2.5 mg PO HS [facility] Last Admin: 10/21/17 21:14 Dose: 2.5 mg Temazepam (Restoril) 15 mg PO HS PRN PRN Reason: Insomnia Last Admin: 10/21/17 21:18 Dose: 15 mg Tolterodine Tartrate (Detrol) 2 mg PO BID [facility] Last Admin: 10/22/17 09:24 Dose: 2 mg - Labs Labs: 10/22/17 06:05 10/22/17 06:05 PT 10.3 SECONDS (9.7-12.2) 10/16/17 21:37 INR 0.9 10/16/17 21:37 APTT 20 SECONDS (21-34) L 10/16/17 21:37 - Constitutional Appears: Non-toxic - Head Exam Head Exam: ATRAUMATIC - Eye Exam Eye Exam: EOMI - ENT Exam ENT Exam: Mucous Membranes Moist - Neck Exam Neck Exam: absent: Lymphadenopathy, Thyromegaly - Respiratory Exam Respiratory Exam: Clear to Ausculation Bilateral. absent: Rales - Cardiovascular Exam Cardiovascular Exam: Irregular Rhythm, Murmur - Rectal Exam Rectal Exam: Deferred - Extremities Exam Extremities Exam: Normal Capillary Refill. absent: Calf Tenderness - Neurological Exam Neurological Exam: Alert, Oriented x3 - Psychiatric Exam Psychiatric exam: Normal Mood - Skin Skin Exam: Dry Assessment and Plan (1) CVA (cerebral vascular accident) Status: Acute (2) New onset a-fib Status: Acute
[2017-10-22 13:49] LABS: URINE BILIRUBIN NEGATIVE (NEGATIVE); URINE BLOOD NEGATIVE (NEGATIVE); URINE CLARITY Clear (Clear); URINE COLOR Yellow (YELLOW); URINE GLUCOSE (UA) 3+ mg/dL (Normal); URINE LEUKOCYTE ESTERASE NEG Leu/uL (Negative); URINE PROTEIN NEGATIVE (NEGATIVE); URINE UROBILINOGEN NORMAL mg/dL (0.2-1.0)
--- NOTE | 2017-10-22 17:25 | CP.PCM.PN ---
Subjective - Date & Time of Evaluation Date of Evaluation: 10/22/17 Time of Evaluation: 10:00 - Subjective Subjective: clinically same Objective - Vital Signs/Intake and Output Vital Signs (last 24 hours): Temp Pulse Resp BP Pulse Ox 98.1 F 85 20 118/70 96 10/22/17 15:02 10/22/17 16:00 10/22/17 15:02 10/22/17 15:02 10/22/17 15:02 Intake and Output: 10/22/17 10/22/17 06:59 18:59 Intake Total 400 400 Output Total 50 400 Balance 350 0 - Medications Medications: Current Medications Amitriptyline HCl (Elavil) 75 mg PO HS [facility] Last Admin: 10/21/17 21:14 Dose: 75 mg Amlodipine Besylate (Norvasc) 10 mg PO DAILY [facility] Last Admin: 10/22/17 09:24 Dose: 10 mg Apixaban (Eliquis) 2.5 mg PO BID [facility] Last Admin: 10/22/17 09:24 Dose: 2.5 mg Aspirin (Ecotrin) 81 mg PO DAILY [facility] Last Admin: 10/22/17 09:22 Dose: 81 mg Budesonide (Pulmicort Respules) 0.5 mg INH RQ12 [facility] Last Admin: 10/22/17 07:44 Dose: 0.5 mg Carvedilol (Coreg) 25 mg PO BID [facility] Last Admin: 10/22/17 09:22 Dose: 25 mg Diltiazem HCl (Cardizem) 30 mg PO QID [facility] Last Admin: 10/22/17 14:13 Dose: 30 mg Enalapril Maleate (Vasotec) 10 mg PO DAILY [facility] Last Admin: 10/22/17 09:22 Dose: 10 mg Gabapentin (Neurontin) 300 mg PO BID [facility] Last Admin: 10/22/17 09:22 Dose: 300 mg Glipizide (Glucotrol) 10 mg PO BID [facility] Last Admin: 10/22/17 09:22 Dose: 10 mg Insulin Aspart (Novolog) 0 unit SC [facility] PRN Reason: Protocol Last Admin: 10/22/17 12:02 Dose: 4 unit Insulin Glargine (Lantus) 10 unit SC DAILY [facility] Last Admin: 10/22/17 09:25 Dose: 10 u Metformin HCl (Glucophage) 1,000 mg PO BID [facility] Last Admin: 10/22/17 09:22 Dose: 1,000 mg Metoprolol Tartrate (Lopressor) 5 mg IVP Q4H PRN PRN Reason: Systolic Blood Pressure Last Admin: 10/18/17 09:12 Dose: 5 mg Pantoprazole Sodium (Protonix Ec Tab) 40 mg PO DAILY [facility] Last Admin: 10/22/17 09:23 Dose: 40 mg Rosuvastatin Calcium (Crestor) 10 mg PO HS [facility] Last Admin: 10/21/17 21:14 Dose: 10 mg Rosuvastatin Calcium (Crestor) 2.5 mg PO HS [facility] Last Admin: 10/21/17 21:14 Dose: 2.5 mg Temazepam (Restoril) 15 mg PO HS PRN PRN Reason: Insomnia Last Admin: 10/21/17 21:18 Dose: 15 mg Tolterodine Tartrate (Detrol) 2 mg PO BID [facility] Last Admin: 10/22/17 09:24 Dose: 2 mg - Labs Labs: 10/22/17 06:05 10/22/17 06:05 PT 10.3 SECONDS (9.7-12.2) 10/16/17 21:37 INR 0.9 10/16/17 21:37 APTT 20 SECONDS (21-34) L 10/16/17 21:37 - Constitutional Appears: Well - Head Exam Head Exam: ATRAUMATIC, NORMAL INSPECTION, NORMOCEPHALIC - Eye Exam Eye Exam: EOMI, Normal appearance, PERRL Pupil Exam: NORMAL ACCOMODATION, PERRL - ENT Exam ENT Exam: Mucous Membranes Moist, Normal Exam - Neck Exam Neck Exam: Full ROM, Normal Inspection. absent: Lymphadenopathy - Respiratory Exam Respiratory Exam: Decreased Breath Sounds - Cardiovascular Exam Cardiovascular Exam: REGULAR RHYTHM, +S1, +S2 - GI/Abdominal Exam GI & Abdominal Exam: Soft, Diminished Bowel Sounds - Rectal Exam Rectal Exam: Deferred
[2017-10-22] MEDS: Rosuvastatin Calcium 2.5 mg Tab PO SCH (21:27)
--- NOTE | 2017-10-23 07:29 | CP.PCM.PN ---
Subjective - Date & Time of Evaluation Date of Evaluation: 10/23/17 Time of Evaluation: 07:00 - Subjective Subjective: PGY2 progress note for Dr. Wade Pt seen and examined at bedside. No acute events overnight. Pt resting comfortably. Moving all 4 extremities without difficulty. She states that she felt as if she made improvement in her strength with PT yesterday Patient denies having any weakness, numbness, tingling in extremities. Patient denies having any CP, SOB, abd pain, N/V/D/C. Patient does complain of dysuria. Objective - Vital Signs/Intake and Output Vital Signs (last 24 hours): Temp Pulse Resp BP Pulse Ox 98 F 75 20 123/73 99 10/22/17 23:20 10/23/17 00:00 10/22/17 23:20 10/22/17 23:20 10/22/17 23:20 Intake and Output: 10/23/17 10/23/17 06:59 18:59 Intake Total 100 Output Total 201 Balance -101 - Medications Medications: Current Medications Amitriptyline HCl (Elavil) 75 mg PO HS [facility] Last Admin: 10/22/17 21:27 Dose: 75 mg Amlodipine Besylate (Norvasc) 10 mg PO DAILY [facility] Last Admin: 10/22/17 09:24 Dose: 10 mg Apixaban (Eliquis) 2.5 mg PO BID [facility] Last Admin: 10/22/17 17:59 Dose: 2.5 mg Aspirin (Ecotrin) 81 mg PO DAILY [facility] Last Admin: 10/22/17 09:22 Dose: 81 mg Budesonide (Pulmicort Respules) 0.5 mg INH RQ12 [facility] Last Admin: 10/22/17 20:07 Dose: 0.5 mg Carvedilol (Coreg) 25 mg PO BID [facility] Last Admin: 10/22/17 17:59 Dose: 25 mg Diltiazem HCl (Cardizem) 30 mg PO QID [facility] Last Admin: 10/22/17 21:27 Dose: 30 mg Enalapril Maleate (Vasotec) 10 mg PO DAILY [facility] Last Admin: 10/22/17 09:22 Dose: 10 mg Gabapentin (Neurontin) 300 mg PO BID [facility] Last Admin: 10/22/17 18:00 Dose: 300 mg Glipizide (Glucotrol) 10 mg PO BID [facility] Last Admin: 10/22/17 18:00 Dose: 10 mg Insulin Aspart (Novolog) 0 unit SC ACHS [place] PRN Reason: Protocol Last Admin: 10/22/17 21:26 Dose: Not Given Insulin Glargine (Lantus) 10 unit SC DAILY [facility] Last Admin: 10/22/17 09:25 Dose: 10 u Metformin HCl (Glucophage) 1,000 mg PO BID [facility] Last Admin: 10/22/17 18:00 Dose: 1,000 mg Metoprolol Tartrate (Lopressor) 5 mg IVP Q4H PRN PRN Reason: Systolic Blood Pressure Last Admin: 10/18/17 09:12 Dose: 5 mg Pantoprazole Sodium (Protonix Ec Tab) 40 mg PO DAILY [facility] Last Admin: 10/22/17 09:23 Dose: 40 mg Rosuvastatin Calcium (Crestor) 10 mg PO HS [facility] Last Admin: 10/22/17 21:27 Dose: 10 mg Rosuvastatin Calcium (Crestor) 2.5 mg PO HS [facility] Last Admin: 10/22/17 21:27 Dose: Not Given Temazepam (Restoril) 15 mg PO HS PRN PRN Reason: Insomnia Last Admin: 10/21/17 21:18 Dose: 15 mg Tolterodine Tartrate (Detrol) 2 mg PO BID [facility] Last Admin: 10/22/17 17:59 Dose: 2 mg - Labs Labs: 10/22/17 06:05 10/22/17 06:05 PT 10.3 SECONDS (9.7-12.2) 10/16/17 21:37 INR 0.9 10/16/17 21:37 APTT 20 SECONDS (21-34) L 10/16/17 21:37 - Constitutional Appears: Non-toxic, No Acute Distress - Head Exam Head Exam: ATRAUMATIC, NORMAL INSPECTION - Eye Exam Eye Exam: EOMI Pupil Exam: NORMAL ACCOMODATION - ENT Exam ENT Exam: Mucous Membranes Moist - Respiratory Exam Respiratory Exam: Clear to Ausculation Bilateral, NORMAL BREATHING PATTERN. absent: Respiratory Distress - Cardiovascular Exam Cardiovascular Exam: REGULAR RHYTHM, +S1, +S2 - GI/Abdominal Exam GI & Abdominal Exam: Soft, Normal Bowel Sounds. absent: Distended, Firm, Guarding, Tenderness - Extremities Exam Extremities Exam: Normal Inspection - Back Exam Back Exam: NORMAL INSPECTION - Neurological Exam Neurological Exam: Alert, Awake, CN II-XII Intact, Oriented x3. absent: Normal Gait Neuro motor strength exam: Left Upper Extremity: 4, Right Upper Extremity: 4, Left Lower Extremity: 4, Right Lower Extremity: 4 - Psychiatric Exam Psychiatric exam: Normal Affect, Normal Mood Assessment and Plan - Assessment and Plan (Free Text) Assessment: Atrial fibrillation Rate controlled today Cardizem 30mg PO QID Patient started on Eliquis 2.[address] Villarreal cardiology consulted. Cardiology recommended pt receive Eliquis 5 mg po qd. Per Dr. Racheal Wade, pt should receive Eliquis 2.5 mg po BID Diastolic dysfunction Echo report shows EF 50-55% with hypertensive heart disease and diastolic dysfunction Coreg 25mg PO BID Cardiology on board Hx Lacunar infarct ASA 81mg PO daily Crestor 2.5 mg PO HS Patient has LE weakness on admission - now resolved Dr. Sorto/Dr. Bhatt, neurology consulted, help appreciated Tolterodine 2mg PO BID tiffany Brain MRI - negative, chronic changes Cervical MRI - moderate to severe R vertibral foraminal narrowing, spinal stenosis Head/neck CTA - no occlusion seen, atherosclerotic changes seen Heat CT - old lacunar infarct no acute changes Carotid dopplers - negative Lumbar MRI showed L4-L5 right lateral disc herniation casuing proximal right neural foraminal stenosis and mild right leonela canal stenosis. Irregular generalized disc bulge L3-L4 combines with facet joint degerative changes resulting in mild canal stenosis. See full report Thoracic MRI was normal Hypertension Norvasc 10mg PO daily Coreg 25mg PO BID Enalapril 10mg PO daily Lopressor 5mg IVP prn elevated SBP DM ISS Accuchekcs hypoglycemia protocol Metformin 1000 mg PO BID Glipizide 10mg PO BID Lantus 10 units HS ISS medium dose Diabetic neuropathy Gabapentin Elavil Shortness of breath was likely secondary to rapid Afib now improved Duonebs prn - for SOB Pulmicort RQ12 Will taper steroids Dr. Ayala consulted help appreciated Hyperlipidemia Well controlled Crestor 2.5 mg PO HS Depression Elavil 75mg PO HS Insomnia Restoril 15mg PO HS prn Prophylaxis Eliquis Protonix Heart healthy diet PT/OT Case management consulted for placement All management per Dr. Racheal Wade Patient is stable to discharge to rehab per Dr. Racheal Wade when bed is available. Patient is to continue all of her current medications. Patient is to follow up with Dr. Racheal Wade within one week of discharge for post hospital care. Patient is to also follow up with neurology and cardiology outpatient within one week of discharge. Patient is to return to the emergency room if symptoms return. All instructions explained to the patient and she agrees.
[2017-10-23] MEDS: (Novolog) Insulin Aspart, Recombinant 100 u/ml 10 ml vial SC SCH ×3 (07:38→18:04)
[2017-10-23 07:46] LABS: BASO % 0.1 % (0.0-2.0); EOS # 0.1 K/uL (0.0-0.7); EOS % 0.9 % (0.0-4.0); HEMOGLOBIN 11.8 g/dL (11.0-16.0); LYMPH # 2.4 K/uL (1.0-4.3); LYMPH % 21.9 % (20.0-40.0); MEAN CELL VOLUME 83.2 fL (81.0-99.0); MEAN CORPUSCULAR HEMOGLOBIN 28.1 pg (27.0-31.0); MEAN CORPUSCULAR HGB CONC 33.8 g/dL (33.0-37.0); MEAN PLATELET VOLUME 7.5 fL (7.2-11.7); MONO # 0.5 K/uL (0.0-0.8); MONO % 4.7 % (0.0-10.0); NEUT % 72.4 % (50.0-75.0); NRBC % 0.1 % (0.0-2.0); RBC 4.21 Mil/uL (3.80-5.20); RED CELL DISTRIBUTION WIDTH 14.5 % (11.5-14.5); WHITE BLOOD COUNT 11.1 K/uL (4.8-10.8)
[2017-10-23] MEDS: Budesonide 0.5 mg/2 ml Inhal Susp UD INH SCH ×2 (08:00→19:16)
--- NOTE | 2017-10-23 08:09 | CP.PCM.PN ---
Subjective - Date & Time of Evaluation Date of Evaluation: 10/23/17 Time of Evaluation: 08:09 - Subjective Subjective: Ms. Coombs was seen and examined at the bedside. She is alert, oriented in all spheres.She denies any headache, dizziness, lightheadedness, complains of not able to get enough sleep. She is able to follow simple commands.She is able to do some of her ADL such as such as repositioning herself in bed. HgbA1c is 7.9. There was no untoward events overnight. Objective - Vital Signs/Intake and Output Vital Signs (last 24 hours): Temp Pulse Resp BP Pulse Ox 98.1 F 94 H 18 110/78 99 10/23/17 07:10 10/23/17 07:10 10/23/17 07:10 10/23/17 07:10 10/23/17 07:10 Intake and Output: 10/23/17 10/23/17 06:59 18:59 Intake Total 100 Output Total 201 Balance -101 - Medications Medications: Current Medications Amitriptyline HCl (Elavil) 75 mg PO HS [facility] Last Admin: 10/22/17 21:27 Dose: 75 mg Amlodipine Besylate (Norvasc) 10 mg PO DAILY [facility] Last Admin: 10/22/17 09:24 Dose: 10 mg Apixaban (Eliquis) 2.5 mg PO BID [facility] Last Admin: 10/22/17 17:59 Dose: 2.5 mg Aspirin (Ecotrin) 81 mg PO DAILY [facility] Last Admin: 10/22/17 09:22 Dose: 81 mg Budesonide (Pulmicort Respules) 0.5 mg INH RQ12 [facility] Last Admin: 10/22/17 20:07 Dose: 0.5 mg Carvedilol (Coreg) 25 mg PO BID [facility] Last Admin: 10/22/17 17:59 Dose: 25 mg Diltiazem HCl (Cardizem) 30 mg PO QID [facility] Last Admin: 10/22/17 21:27 Dose: 30 mg Enalapril Maleate (Vasotec) 10 mg PO DAILY [facility] Last Admin: 10/22/17 09:22 Dose: 10 mg Gabapentin (Neurontin) 300 mg PO BID [facility] Last Admin: 10/22/17 18:00 Dose: 300 mg Glipizide (Glucotrol) 10 mg PO BID [facility] Last Admin: 10/22/17 18:00 Dose: 10 mg Insulin Aspart (Novolog) 0 unit SC ACHS [place] PRN Reason: Protocol Last Admin: 10/23/17 07:38 Dose: Not Given Insulin Glargine (Lantus) 10 unit SC DAILY [facility] Last Admin: 10/22/17 09:25 Dose: 10 u Metformin HCl (Glucophage) 1,000 mg PO BID [facility] Last Admin: 10/22/17 18:00 Dose: 1,000 mg Metoprolol Tartrate (Lopressor) 5 mg IVP Q4H PRN PRN Reason: Systolic Blood Pressure Last Admin: 10/18/17 09:12 Dose: 5 mg Pantoprazole Sodium (Protonix Ec Tab) 40 mg PO DAILY [facility] Last Admin: 10/22/17 09:23 Dose: 40 mg Rosuvastatin Calcium (Crestor) 10 mg PO HS [facility] Last Admin: 10/22/17 21:27 Dose: 10 mg Rosuvastatin Calcium (Crestor) 2.5 mg PO HS [facility] Last Admin: 10/22/17 21:27 Dose: Not Given Temazepam (Restoril) 15 mg PO HS PRN PRN Reason: Insomnia Last Admin: 10/21/17 21:18 Dose: 15 mg Tolterodine Tartrate (Detrol) 2 mg PO BID [facility] Last Admin: 10/22/17 17:59 Dose: 2 mg - Labs Labs: 10/23/17 07:39 10/22/17 06:05 PT 10.3 SECONDS (9.7-12.2) 10/16/17 21:37 INR 0.9 10/16/17 21:37 APTT 20 SECONDS (21-34) L 10/16/17 21:37 - Constitutional Appears: No Acute Distress - Head Exam Head Exam: NORMAL INSPECTION - Neurological Exam Neurological Exam: Alert, Awake, Oriented x3 Neuro motor strength exam: Left Upper Extremity: 5, Right Upper Extremity: 5, Left Lower Extremity: 4, Right Lower Extremity: 5 Additional comments: Neurological unchanged from previous examination. Assessment and Plan (1) Lacunar infarction Assessment & Plan: Case discussed with Dr. Sorto, continue all current medical, physical, and occupational therapies. Recommend pressure and glycemic control. Status: Acute
[2017-10-23 08:28] LABS: ALB/GLOB RATIO 1.1 (1.0-2.1); ALBUMIN 3.2 g/dL (3.5-5.0); ALT/SGPT 19 U/L (9-52); AST/SGOT 25 U/L (14-36); BLOOD UREA NITROGEN 33 mg/dL (7-17); CALCIUM 8.9 mg/dl (8.6-10.4); GFR AFRICAN-AMERICAN > 60; GFR NON-AFRICAN AMERICAN 55
[2017-10-23] MEDS: Pantoprazole 40 mg EC Tab PO SCH (10:10)
[2017-10-23] MEDS: (Lantus) Insulin Glargine, Recombinant SC SCH (10:10)
--- NOTE | 2017-10-23 11:55 | CP.PCM.PN ---
Subjective - Date & Time of Evaluation Date of Evaluation: 10/23/17 Time of Evaluation: 11:52 - Subjective Subjective: PT OOB IN CHAIR., FEELS OK., LESS COUGH. +URINARY INCONTINENCE. ROS ; OTHERWISE NEG. Objective - Vital Signs/Intake and Output Vital Signs (last 24 hours): Temp Pulse Resp BP Pulse Ox 98.1 F 115 H 18 89/58 L 99 10/23/17 07:10 10/23/17 08:00 10/23/17 07:10 10/23/17 10:00 10/23/17 07:10 Intake and Output: 10/23/17 10/23/17 06:59 18:59 Intake Total 100 Output Total 201 Balance -101 - Medications Medications: Current Medications Amitriptyline HCl (Elavil) 75 mg PO HS [facility] Last Admin: 10/22/17 21:27 Dose: 75 mg Amlodipine Besylate (Norvasc) 10 mg PO DAILY [facility] Last Admin: 10/23/17 09:56 Dose: Not Given Apixaban (Eliquis) 2.5 mg PO BID [facility] Last Admin: 10/23/17 10:10 Dose: 2.5 mg Aspirin (Ecotrin) 81 mg PO DAILY [facility] Last Admin: 10/23/17 10:10 Dose: 81 mg Budesonide (Pulmicort Respules) 0.5 mg INH RQ12 [facility] Last Admin: 10/22/17 20:07 Dose: 0.5 mg Carvedilol (Coreg) 25 mg PO BID [facility] Last Admin: 10/23/17 09:55 Dose: Not Given Diltiazem HCl (Cardizem) 30 mg PO QID [facility] Last Admin: 10/23/17 09:54 Dose: Not Given Enalapril Maleate (Vasotec) 10 mg PO DAILY [facility] Last Admin: 10/23/17 09:56 Dose: Not Given Gabapentin (Neurontin) 300 mg PO BID [facility] Last Admin: 10/23/17 10:10 Dose: 300 mg Glipizide (Glucotrol) 10 mg PO BID [facility] Last Admin: 10/23/17 10:10 Dose: 10 mg Insulin Aspart (Novolog) 0 unit SC [facility] PRN Reason: Protocol Last Admin: 10/23/17 07:38 Dose: Not Given Insulin Glargine (Lantus) 10 unit SC DAILY [facility] Last Admin: 10/23/17 10:10 Dose: 10 u Metformin HCl (Glucophage) 1,000 mg PO BID [facility] Last Admin: 10/23/17 10:10 Dose: 1,000 mg Metoprolol Tartrate (Lopressor) 5 mg IVP Q4H PRN PRN Reason: Systolic Blood Pressure Last Admin: 10/18/17 09:12 Dose: 5 mg Pantoprazole Sodium (Protonix Ec Tab) 40 mg PO DAILY [facility] Last Admin: 10/23/17 10:10 Dose: 40 mg Rosuvastatin Calcium (Crestor) 10 mg PO HS [facility] Last Admin: 10/22/17 21:27 Dose: 10 mg Rosuvastatin Calcium (Crestor) 2.5 mg PO HS [facility] Last Admin: 10/22/17 21:27 Dose: Not Given Temazepam (Restoril) 15 mg PO HS PRN PRN Reason: Insomnia Last Admin: 10/21/17 21:18 Dose: 15 mg Tolterodine Tartrate (Detrol) 2 mg PO BID [facility] Last Admin: 10/23/17 10:10 Dose: 2 mg - Labs Labs: 10/23/17 07:39 10/23/17 07:39 PT 10.3 SECONDS (9.7-12.2) 10/16/17 21:37 INR 0.9 10/16/17 21:37 APTT 20 SECONDS (21-34) L 10/16/17 21:37 - Constitutional Appears: Non-toxic, No Acute Distress - Head Exam Head Exam: ATRAUMATIC, NORMOCEPHALIC - Eye Exam Eye Exam: EOMI, Normal appearance - ENT Exam ENT Exam: Mucous Membranes Moist - Neck Exam Neck Exam: absent: Tenderness, Thyromegaly - Respiratory Exam Respiratory Exam: absent: Accessory Muscle Use, Wheezes, Respiratory Distress Additional comments: BETTER BS BASES - Cardiovascular Exam Cardiovascular Exam: Irregular Rhythm, +S1, +S2 - GI/Abdominal Exam GI & Abdominal Exam: Soft. absent: Tenderness - Rectal Exam Rectal Exam: Deferred - Extremities Exam Extremities Exam: absent: Calf Tenderness, Pedal Edema - Back Exam Back Exam: absent: CVA tenderness (L), CVA tenderness (R) - Neurological Exam Neurological Exam: Alert, Awake, CN II-XII Intact, Oriented x3 - Psychiatric Exam Psychiatric exam: Normal Mood - Skin Skin Exam: absent: Rash Assessment and Plan (1) Hypertension Status: Acute (2) Diabetes Status: Acute (3) Osteoarthritis Status: Acute (4) Obesity Status: Acute (5) Cough Status: Acute (6) CVA (cerebral vascular accident) Status: Acute (7) New onset a-fib Status: Acute - Assessment and Plan (Free Text) Assessment: RESP STATUS COMFORTABLE AT REST., CONT PULM TOILET., AND PULMICORT. COUGH RESOLVING., CXR REVIEWED., AFEBRILE., ON ELIQUIS. FOR PT. CONSIDER MILAD MENG. PROG GUARDED., DISCUSSED WITH STAFF.
[2017-10-23 15:41] VITALS: RESP 20; TEMP 97.4; O2SAT 100
--- NOTE | 2017-10-23 16:49 | CP.PCM.PN ---
Subjective - Date & Time of Evaluation Date of Evaluation: 10/23/17 Time of Evaluation: 09:40 - Subjective Subjective: clinically same Objective - Vital Signs/Intake and Output Vital Signs (last 24 hours): Temp Pulse Resp BP Pulse Ox 97.4 F L 75 20 110/73 100 10/23/17 15:02 10/23/17 15:02 10/23/17 15:02 10/23/17 15:02 10/23/17 15:02 Intake and Output: 10/23/17 10/23/17 06:59 18:59 Intake Total 100 720 Output Total 201 50 Balance -101 670 - Medications Medications: Current Medications Amitriptyline HCl (Elavil) 75 mg PO HS [facility] Last Admin: 10/22/17 21:27 Dose: 75 mg Amlodipine Besylate (Norvasc) 10 mg PO DAILY [facility] Last Admin: 10/23/17 09:56 Dose: Not Given Apixaban (Eliquis) 2.5 mg PO BID [facility] Last Admin: 10/23/17 10:10 Dose: 2.5 mg Aspirin (Ecotrin) 81 mg PO DAILY [facility] Last Admin: 10/23/17 10:10 Dose: 81 mg Budesonide (Pulmicort Respules) 0.5 mg INH RQ12 [facility] Last Admin: 10/23/17 08:00 Dose: 0.5 mg Carvedilol (Coreg) 25 mg PO BID [facility] Last Admin: 10/23/17 09:55 Dose: Not Given Diltiazem HCl (Cardizem) 30 mg PO QID [facility] Last Admin: 10/23/17 13:38 Dose: 30 mg Enalapril Maleate (Vasotec) 10 mg PO DAILY [facility] Last Admin: 10/23/17 09:56 Dose: Not Given Gabapentin (Neurontin) 300 mg PO BID [facility] Last Admin: 10/23/17 10:10 Dose: 300 mg Glipizide (Glucotrol) 10 mg PO BID [facility] Last Admin: 10/23/17 10:10 Dose: 10 mg Insulin Aspart (Novolog) 0 unit SC [facility] PRN Reason: Protocol Last Admin: 10/23/17 12:28 Dose: 6 unit Insulin Glargine (Lantus) 10 unit SC DAILY [facility] Last Admin: 10/23/17 10:10 Dose: 10 u Metformin HCl (Glucophage) 1,000 mg PO BID [facility] Last Admin: 10/23/17 10:10 Dose: 1,000 mg Metoprolol Tartrate (Lopressor) 5 mg IVP Q4H PRN PRN Reason: Systolic Blood Pressure Last Admin: 10/18/17 09:12 Dose: 5 mg Pantoprazole Sodium (Protonix Ec Tab) 40 mg PO DAILY [facility] Last Admin: 10/23/17 10:10 Dose: 40 mg Rosuvastatin Calcium (Crestor) 10 mg PO HS [facility] Last Admin: 10/22/17 21:27 Dose: 10 mg Rosuvastatin Calcium (Crestor) 2.5 mg PO HS [facility] Last Admin: 10/22/17 21:27 Dose: Not Given Temazepam (Restoril) 15 mg PO HS PRN PRN Reason: Insomnia Last Admin: 10/21/17 21:18 Dose: 15 mg Tolterodine Tartrate (Detrol) 2 mg PO BID [facility] Last Admin: 10/23/17 10:10 Dose: 2 mg - Labs Labs: 10/23/17 07:39 10/23/17 07:39 PT 10.3 SECONDS (9.7-12.2) 10/16/17 21:37 INR 0.9 10/16/17 21:37 APTT 20 SECONDS (21-34) L 10/16/17 21:37 - Constitutional Appears: Well - Head Exam Head Exam: ATRAUMATIC, NORMAL INSPECTION, NORMOCEPHALIC - Eye Exam Eye Exam: EOMI, Normal appearance, PERRL Pupil Exam: NORMAL ACCOMODATION, PERRL - ENT Exam ENT Exam: Mucous Membranes Moist, Normal Exam - Neck Exam Neck Exam: Full ROM, Normal Inspection. absent: Lymphadenopathy - Respiratory Exam Respiratory Exam: Decreased Breath Sounds - Cardiovascular Exam Cardiovascular Exam: REGULAR RHYTHM, +S1, +S2 - GI/Abdominal Exam GI & Abdominal Exam: Soft, Diminished Bowel Sounds - Rectal Exam Rectal Exam: Deferred
[2017-10-23 17:39] VITALS: BP 121/80
[2017-10-23 19:05] VITALS: PULSE 93
--- NOTE | 2017-10-26 22:01 | CARD ---
APPROVED REPORT EKG Measurement Heart [id number] <Conclusion> Atrial fibrillation with rapid ventricular response ST & T wave abnormality, consider lateral ischemia Abnormal ECG
== END 2017-10-23 21:30 | DRG 66 ==
LOC: C.ER 20:57 → C.9E 22:29 → C.9I 10-17 02:54 → C.6T 10-19 05:40
PROVIDERS: ADMIT Internal Medicine Nephrology; ATTEND Internal Medicine Nephrology
DX: I63.9 Cerebral infarction, unspecified (principal); R53.1 Weakness; E10.40 Type 1 diabetes mellitus with diabetic neuropathy, unspecified; I48.91 Unspecified atrial fibrillation; E78.2 Mixed hyperlipidemia; E66.9 Obesity, unspecified; Z68.28 Body mass index [BMI] 28.0-28.9, adult; F32.9 Major depressive disorder, single episode, unspecified; G47.00 Insomnia, unspecified; I11.0 Hypertensive heart disease with heart failure; J01.10 Acute frontal sinusitis, unspecified; J45.909 Unspecified asthma, uncomplicated; J98.01 Acute bronchospasm; M51.26 Other intervertebral disc displacement, lumbar region; Z79.4 Long term (current) use of insulin; R32 Unspecified urinary incontinence; R00.0 Tachycardia, unspecified